=== PATIENT | male | born 1950 | race Caucasian/White ===

== ENCOUNTER 2017-04-21 01:24 | Inpatient (IN) | payer OTHER ==
--- NOTE | 2017-04-21 01:26 | PDOC ---
History of Present Illness - General History Source: Patient, Family Exam Limitations: No Limitations - History of Present Illness Initial Comments: 04/21/17 01:36 66 y/o M with a PMHx of HTN, HLD, kidney stones, diverticulitis presents to the ED with LLQ pain. Patient was seen at [facility] 2 days ago, and was told he has inflammation but not given medication. Patient states the pain is so severe he cannot sleep. He denies fever, chills. Denies nausea, vomiting, diarrhea. Denies chest pain, SOB. Patient speaks no Kyrgyz, daughter is at bedside translating for him. <Vandana Rhoades - Last Filed: 04/21/17 05:31> <Aniceto Salas - Last Filed: 04/21/17 05:35> - General Stated Complaint: ABD PAIN Past History <Vandana Rhoades - Last Filed: 04/21/17 05:31> - Past Medical History Anemia: No Asthma: No Cancer: No Cardiac Disorders: No CVA: No COPD: No CHF: No Dementia: No Diabetes: Yes GI Disorders: No Disorders: Yes (KIDNEY STONES) HTN: Yes Hypercholesterolemia: Yes Liver Disease: No Seizures: No Thyroid Disease: No - Surgical History Abdominal Surgery: Yes (umb.hernia) Appendectomy: No Cardiac Surgery: No Cholecystectomy: No Gastric Stapling: No Lung Surgery: No Neurologic Surgery: No Orthopedic Surgery: No - Suicide/Smoking/Psychosocial Hx Smoking Status: No Smoking History: Never smoked Have you smoked in the past 12 months: No Number of Cigarettes Smoked Daily: 0 Hx Alcohol Use: Yes (occasional) Drug/Substance Use Hx: No Substance Use Type: None Hx Substance Use Treatment: No <Aniceto Salas - Last Filed: 04/21/17 05:35> - Past Medical History Allergies/Adverse Reactions: Allergies Allergy/AdvReac Type Severity Reaction Status Date / Time No Known Allergies Allergy Verified 07/22/14 17:51 Home Medications: Ambulatory Orders Olmesartan Medoxomil [Benicar (Nf)] 40 mg PO DAILY 04/21/17 Review of Systems - Review of Systems Able to Perform ROS?: Yes Comments:: 04/21/17 01:36 GENERAL/CONSTITUTIONAL: No fever or chills. No weakness. HEAD, EYES, EARS, NOSE AND THROAT: No change in vision. No ear pain or discharge. No sore throat. CARDIOVASCULAR: No chest pain or shortness of breath. RESPIRATORY: No cough, wheezing, or hemoptysis. GASTROINTESTINAL: (+) LLQ pain. No nausea, vomiting, diarrhea or constipation. GENITOURINARY: No dysuria, frequency, or change in urination. MUSCULOSKELETAL: No joint or muscle swelling or pain. No neck or back pain. SKIN: No rash NEUROLOGIC: No headache, vertigo, loss of consciousness, or change in strength/ sensation. ENDOCRINE: No increased thirst. No abnormal weight change. HEMATOLOGIC/LYMPHATIC: No anemia, easy bleeding, or history of blood clots. ALLERGIC/IMMUNOLOGIC: No hives or skin allergy. <Vandana Rhoades - Last Filed: 04/21/17 05:31> *Physical Exam - Physical Exam Comments: 04/21/17 01:36 GENERAL: Awake, alert, and fully oriented, in no acute distress. Obese. HEAD: No signs of trauma EYES: PERRLA, EOMI, sclera anicteric, conjunctiva clear ENT: Auricles normal inspection, hearing grossly normal, nares patent, oropharynx clear without exudates. Moist mucosa NECK: Normal ROM, supple, no lymphadenopathy, JVD, or masses LUNGS: Breath sounds equal, clear to auscultation bilaterally. No wheezes, and no crackles HEART: Regular rate and rhythm, normal S1 and S2, no murmurs, rubs or gallops ABDOMEN: (+) LLQ tenderness. Soft, normoactive bowel sounds. No guarding, no rebound. No masses EXTREMITIES: Normal range of motion, no edema. No clubbing or cyanosis. No cords, erythema, or tenderness NEUROLOGICAL: Cranial nerves II through XII grossly intact. Normal speech, normal gait SKIN: Warm, Dry, normal turgor, no rashes or lesions noted. <Vandana Rhoades - Last Filed: 04/21/17 05:31> Heart Score/ECG Review #1 04/21/17 03:44 NSR with marked sinus arrythmia at 67 bpm. Possible left atrial enlargement. Right axis deviation. <Vandana Rhoades - Last Filed: 04/21/17 05:31> ED Treatment Course - LABORATORY CBC & Chemistry Diagram: 04/21/17 01:55 04/21/17 01:50 - RADIOLOGY Radiograph Interpretation: 04/21/17 05:31 CT Abdomen and Pelvis reported by Onel Trejo MD IMPRESSION: Diverticulitis <Vandana Rhoades - Last Filed: 04/21/17 05:31> - LABORATORY CBC & Chemistry Diagram: 04/21/17 01:55 04/21/17 01:50 <Aniceto Salas - Last Filed: 04/21/17 05:35> *DC/Admit/Observation/Transfer - Attestations Scribe Attestion: 04/21/17 01:36 Documentation prepared by Vandana Rhoades, acting as medical scheduler for Aniceto Salas DO. <Vandana Rhoades - Last Filed: 04/21/17 05:31> - Discharge Dispostion Admit: Yes - Attestations Physician Attestion: 04/21/17 01:26 I, Dr. Aniceto Salas, attest that this document has been prepared under my direction and personally reviewed by me in its entirety. I further attest, that it accurately reflects all work, treatment, procedures and medical decision -making performed by me. <Aniceto Salas - Last Filed: 04/21/17 05:35> Diagnosis at time of Disposition: Acute diverticulitis - Discharge Dispostion Condition at time of disposition: Improved
[2017-04-21] MEDS ORDERED: METRONIDAZOLE 500 MG PREMIXED 100 ML IVPB ONE ×2 (01:37→02:06)
[2017-04-21] MEDS ORDERED: ONDANSETRON 4 MG/2 ML VIAL IVPUSH ONE (01:37)
[2017-04-21] MEDS ORDERED: PIPERACIL/TAZOB 3.375 GM 3.375 GM/50 ML PREMIX IVPB ONE (01:37)
[2017-04-21] MEDS ORDERED: HYDROmorphone HCL CARPU-JECT 1 MG/1 ML DISP.SYRIN IVPUSH ONE (01:37)
[2017-04-21] MEDS ORDERED: SODIUM CHLORIDE 1,000 ML IV STA (01:37)
[2017-04-21 02:03] LABS: BASOPHIL 0.3 % (0-2.0); EOSINOPHIL 0.7 % (0-4.5); MCH 27.7 pg (25.7-33.7); MCHC 33.4 g/dl (32.0-35.9); MEAN CELL VOLUME 82.9 fl (80-96); PLATELET COUNT 219 K/MM3 (134-434); RDW 14.1 % (11.9-15.9); WHITE BLOOD COUNT 11.7 K/mm3 (4.0-10.0)
[2017-04-21] MEDS ORDERED: ONDANSETRON 4 MG/2 ML VIAL ONE (02:06)
[2017-04-21] MEDS ORDERED: HYDROmorphone HCL CARPU-JECT 1 MG/1 ML DISP.SYRIN ONE (02:06)
[2017-04-21 02:17] LABS: INR 1.23 (0.82-1.09); PROTHROMBIN TIME (PATIENT) 13.9 SEC (9.98-11.88)
[2017-04-21 02:30] LABS: ALBUMIN 3.6 g/dl (3.4-5.0); ANION GAP 9 (8-16); BILIRUBIN,TOTAL 0.5 mg/dL (0.2-1.0); CALCIUM 8.7 mg/dL (8.5-10.1); CO2 27 mmol/L (21-32); CREATININE 1.1 mg/dL (0.7-1.3); GLUCOSE,RANDOM 133 mg/dL (74-106); SGOT/AST 12 U/L (15-37); SGPT/ALT 20 U/L (12-78); TOT PROT 6.8 g/dl (6.4-8.2)
[2017-04-21 02:33] LABS: ALK PHOS 65 U/L (45-117); CPK 102 IU/L (39-308); TROPONIN I < 0.02 ng/ml (0.00-0.05)
[2017-04-21] MEDS ORDERED: PIPERACILLIN/TAZOB 3.375 GM 50 ML IVPB ONE (02:55)
[2017-04-21 06:21] LABS: C-REACTIVE PROTEIN 2.1 MG/DL (0.00-0.3)
[2017-04-21] MEDS ORDERED: ACETAMINOPHEN 325 MG TABLET (FP) PO PRN (07:26)
[2017-04-21] MEDS ORDERED: morphine CARPU-JECT 4 MG/1 ML DISP.SYRIN IVPUSH PRN (07:26)
[2017-04-21] MEDS ORDERED: ONDANSETRON 4 MG/2 ML VIAL IVPB PRN (07:26)
[2017-04-21] MEDS: DEXTROSE 5%-NORMAL SALINE 1,000 ML IV SCH ×2 (08:15→23:16)
--- NOTE | 2017-04-21 09:36 | EKG ---
Test Reason : Blood Pressure : / mmHG Vent. Rate : 067 BPM Atrial Rate : 067 BPM P-R Int : 196 ms QRS Dur : 100 ms QT Int : 368 ms P-R-T Axes : 066 115 058 degrees QTc Int : 388 ms POOR DATA QUALITY, INTERPRETATION MAY BE ADVERSELY AFFECTED SINUS RHYTHM WITH MARKED SINUS ARRHYTHMIA POSSIBLE LEFT ATRIAL ENLARGEMENT RIGHT AXIS DEVIATION ABNORMAL ECG WHEN COMPARED WITH ECG OF 22-JUL-2014 21:24, QRS AXIS SHIFTED RIGHT Confirmed by MINDA MCQUEEN, HARIKA ([id number]) on 04/21/2017 9:36:34 AM Referred By: Confirmed By:HARIKA PERLA MD
[2017-04-21] MEDS ORDERED: METRONIDAZOLE 500 MG PREMIXED 100 ML IVPB SCH (10:00)
[2017-04-21] MEDS ORDERED: LEVOFLOXACIN 500 MG IVPB 100 ML IVPB SCH (10:00)
--- NOTE | 2017-04-21 11:13 | HP ---
Admitting History and Physical - Primary Care Physician PCP: Isha Noel - Admission Chief Complaint: ABD PAIN History of Present Illness: 66 y/o M with a PMHx of HTN, HLD, kidney stones, diverticulitis presents to the ED with LLQ pain. Patient was seen at [facility] 2 days ago, and was told he has inflammation but not given medication. Patient states the pain is so severe he cannot sleep. He denies fever, chills. Denies nausea, vomiting, diarrhea. Denies chest pain, SOB. Patient speaks no Kittitian, daughter is at bedside translating for him. History Source: Patient - Smoking History Smoking history: Never smoked Have you smoked in the past 12 months: No Aproximately how many cigarettes per day: 0 - Alcohol/Substance Use Hx Alcohol Use: Yes (occasional) Home Medications - Allergies Allergies/Adverse Reactions: Allergies Allergy/AdvReac Type Severity Reaction Status Date / Time No Known Allergies Allergy Verified 07/22/14 17:51 - Home Medications Home Medications: Ambulatory Orders Olmesartan Medoxomil [Benicar (Nf)] 40 mg PO DAILY 04/21/17 Review of Systems - Review of Systems Constitutional: reports: Loss of Appetite Eyes: reports: No Symptoms HENT: reports: No Symptoms Neck: reports: No Symptoms Cardiovascular: reports: No Symptoms Respiratory: reports: No Symptoms Gastrointestinal: reports: Abdominal Pain, Indigestion Genitourinary: reports: No Symptoms Musculoskeletal: reports: No Symptoms Integumentary: reports: No Symptoms Neurological: reports: No Symptoms Endocrine: reports: No Symptoms Hematology/Lymphatic: reports: No Symptoms Psychiatric: reports: No Symptoms Physical Examination Vital Signs: Vital Signs Temperature 98.1 F 04/21/17 08:00 Pulse Rate 73 04/21/17 08:00 Respiratory Rate 18 04/21/17 08:00 Blood Pressure 104/65 04/21/17 08:00 O2 Sat by Pulse Oximetry (%) 99 04/21/17 06:12 Constitutional: Yes: Mild Distress Eyes: Yes: WNL HENT: Yes: WNL Neck: Yes: WNL Cardiovascular: Yes: WNL Respiratory: Yes: WNL Gastrointestinal: Yes: Tenderness, Rebound Musculoskeletal: Yes: WNL Extremities: Yes: WNL Edema: No Peripheral Pulses WNL: Yes Integumentary: Yes: WNL Wound/Incision: Yes: Clean/Dry Neurological: Yes: WNL ...Motor Strength: WNL Psychiatric: Yes: WNL Imaging - Results Cat Scan: Pending Problem List - Problems (1) Acute diverticulitis Code(s): K57.92 - DVTRCLI OF INTEST, PART UNSP, W/O PERF OR ABSCESS W/O BLEED (2) Abdominal pain Code(s): R10.9 - UNSPECIFIED ABDOMINAL PAIN Qualifiers: Abdominal location: generalized Qualified Code(s): R10.84 - Generalized abdominal pain; R10.84 - Generalized abdominal pain Assessment/Plan SURGERY AND GI EVAL MORPHINE FOR PAIN IV ABX NPO IVF ZOFRAN IV PPI IV
[2017-04-21] MEDS: PANTOPRAZOLE SODIUM 40 MG VIAL IVPUSH SCH (12:15)
[2017-04-21 12:35] VITALS: BMI 37.0
[2017-04-21] MEDS ORDERED: morphine CARPU-JECT 8 MG/1 ML DISP.SYRIN IVPUSH PRN ×2 (12:40)
--- NOTE | 2017-04-21 13:14 | CON.GI ---
Consult Consult Specialty:: GI Referred by:: Dr Noel Reason for Consultation:: Abdominal pain - History of Present Illness Chief Complaint: abdominal pain History of Present Illness: 66 y/o M with a PMHx of HTN, HLD, nephrolithiasis, diverticulitis presents to the ED with LLQ pain. He went to [place] 2 days ago and was treated and released with no meds. He states the pain has been escalating over the past few days and was severe on admission. CT done shows L sided diverticulitis and bilateral renal cysts. No fever, N/V. 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) - Alcohol/Substance Use Hx Alcohol Use: Yes (occasional) - Smoking History Smoking history: Never smoked Have you smoked in the past 12 months: No Aproximately how many cigarettes per day: 0 Home Medications - Allergies Allergies/Adverse Reactions: Allergies Allergy/AdvReac Type Severity Reaction Status Date / Time No Known Allergies Allergy Verified 07/22/14 17:51 - Home Medications Home Medications: Ambulatory Orders Olmesartan Medoxomil [Benicar (Nf)] 40 mg PO DAILY 04/21/17 Physical Exam-GI Vital Signs: Vital Signs Temperature 98.1 F 04/21/17 08:00 Pulse Rate 73 04/21/17 08:00 Respiratory Rate 18 04/21/17 08:00 Blood Pressure 104/65 04/21/17 08:00 O2 Sat by Pulse Oximetry (%) 95 04/21/17 09:00 Constitutional: Yes: Well Nourished, Obese HENT: Yes: Normocephalic Cardiovascular: Yes: Regular Rate and Rhythm Respiratory: Yes: CTA Bilaterally Gastrointestinal Inspection: Yes: WNL ...Auscultate: Yes: Normoactive Bowel Sounds ...Palpate: Yes: Soft, Tenderness (LLQ-moderate. He states better since pain meds were given.) Labs: INR, PTT INR 1.23 (0.82-1.09) H 04/21/17 01:55 Imaging - Results Cat Scan: Report Reviewed (Sigmoid diverticulitis and bilateral renal cysts. No abscess or free air.) Assessment/Plan Diverticulitis-uncomplicated. On levaquin and flagyl. If clinically improved, can start clear liquids tomorrow. Case d/w Dr Ellington who notes patient failed levaquin/flagyl in the past and did well with Zosyn. Need ID to evaluate. Continue levaquin and flagyl for now.
--- NOTE | 2017-04-21 14:18 | CONSULT ---
Consult Consult Specialty:: General Surgery Referred by:: Dr. Meredith Reason for Consultation:: diverticulitis - History of Present Illness Chief Complaint: LLQ pain History of Present Illness: 66yo obese M with HTN, HLD, DM2, GERD, h/o diverticulitis, began having LLQ pain about a week ago, and went to [facility], where he had imaging and was discharged without medication and told he was ok. His pain got very bad over last 3 days and he came to our ER. In ER, he was afebrile, had wbc 11.7, and CT showed diverticulitis without abscess or free air. He was admitted to medicine and started on antibiotics (Zosyn in ER, Levo/Flagyl on floor). He still had significant pain this morning, but it is starting to get a little better. In Jun 2014, he was here with a similar episode after failing Levo/Flagyl for 2-3 days as outpatient, received Zosyn and completed Augmentin at home with good response. He states he went to [place] about 4 months ago with LLQ pain and stayed there briefly as well. He denies N/V, F/C at home, but has had some constipation, for which he took milk of magnesia and had a soft BM yesterday morning, which was his last. - History Source History Provided By: Patient, Medical Record Limitations to Obtaining History: Language Barrier (Pakistani - interpretation facilitated by Holli Sanches RN at bedside) - Past Medical History Cardio/Vascular: Yes: HTN, Hyperlipdemia Pulmonary: No: Asthma Gastrointestinal: Yes: Diverticulitis, GERD Musculoskeletal: Yes: Chronic low back pain, Osteoarthritis (left knee) Endocrine: Yes: Diabetes Mellitus - Past Surgical History Past Surgical History: Yes: Arthrosocopy (left knee), Colonoscopy (x3-[address] 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 Home Medications - Allergies Allergies/Adverse Reactions: Allergies Allergy/AdvReac Type Severity Reaction Status Date / Time No Known Allergies Allergy Verified 07/22/14 17:51 - Home Medications Home Medications: Ambulatory Orders Olmesartan Medoxomil [Benicar (Nf)] 40 mg PO DAILY 04/21/17 Home Medications (free text): something for cholesterol, very small pill for diabetes, Nexium for stomach daily, ASA 81mg daily Family Disease History - Family Disease History Family History: Unable to Obtain Review of Systems - Review of Systems Constitutional: denies: Chills, Fever Eyes: reports: Other (wears glasses). denies: Blurred Vision HENT: reports: Throat Pain (just today). denies: Difficult Swallowing, Hearing Loss, Nasal Congestion Cardiovascular: denies: Chest Pain, Palpitations Respiratory: denies: Cough, SOB Gastrointestinal: reports: Abdominal Pain (with hpi), Constipation, Nausea ( from dilaudid earlier today), Vomiting (from dilaudid earlier today). denies: Diarrhea Genitourinary: denies: Burning, Dysuria Musculoskeletal: reports: Back Pain, Joint Pain (left knee) Integumentary: denies: Change in Color, Rash Neurological: denies: Dizziness, Headache Psychiatric: denies: Anxiety, Depression Physical Exam Vital Signs: Vital Signs Temperature 98.1 F 04/21/17 08:00 Pulse Rate 73 04/21/17 08:00 Respiratory Rate 18 04/21/17 08:00 Blood Pressure 104/65 04/21/17 08:00 O2 Sat by Pulse Oximetry (%) 95 04/21/17 09:00 Vital Signs Period Temp Pulse Resp BP Sys/George Pulse Ox Last 24 Hr 97.9 F-98.7 F 73-89 18-18 104-139/65-89 95-99 Constitutional: Yes: No Distress, Calm, Obese Eyes: Yes: Conjunctiva Clear, EOM Intact. No: Sclera Icterus HENT: Yes: Atraumatic, Normocephalic Neck: Yes: Supple, Trachea Midline Cardiovascular: Yes: Regular Rate and Rhythm. No: Murmur Respiratory: Yes: Regular, CTA Bilaterally Gastrointestinal: Yes: Soft, Abdomen, Obese, Hypoactive Bowel Sounds, Tenderness (LLQ without rebound or guarding), Other (well-healed curvilinear infraumbilical scar). No: Distention ...Rectal Exam: Yes: Deferred Renal/: No: CVA Tenderness - Left, CVA Tenderness - Right Musculoskeletal: Yes: Back Pain (chronic lower back). No: Joint Swelling Extremities: No: Cool, Cyanosis Edema: No Peripheral Pulses WNL: Yes Integumentary: No: Jaundice, Rash Neurological: Yes: Alert, Oriented Psychiatric: Yes: Alert, Oriented Labs: CBCD WBC 11.7 K/mm3 (4.0-10.0) H D 04/21/17 01:55 RBC 5.72 M/mm3 (4.00-5.60) H D 04/21/17 01:55 Hgb 15.8 GM/dL (11.7-16.9) D 04/21/17 01:55 Hct 47.4 % (35.4-49) D 04/21/17 01:55 MCV 82.9 fl (80-96) 04/21/17 01:55 MCHC 33.4 g/dl (32.0-35.9) 04/21/17 01:55 RDW 14.1 % (11.9-15.9) 04/21/17 01:55 Plt Count 219 K/MM3 (134-434) 04/21/17 01:55 MPV 8.0 fl (7.5-11.1) 04/21/17 01:55 CMP Sodium 139 mmol/L (136-145) 04/21/17 01:50 Potassium 4.0 mmol/L (3.5-5.1) 04/21/17 01:50 Chloride 103 mmol/L (98-107) 04/21/17 01:50 Carbon Dioxide 27 mmol/L (21-32) 04/21/17 01:50 Anion Gap 9 (8-16) 04/21/17 01:50 BUN 14 mg/dL (7-18) D 04/21/17 01:50 Creatinine 1.1 mg/dL (0.7-1.3) 04/21/17 01:50 Creat Clearance w eGFR > 60 (>60) 04/21/17 01:50 Calcium 8.7 mg/dL (8.5-10.1) 04/21/17 01:50 Total Bilirubin 0.5 mg/dL (0.2-1.0) 04/21/17 01:50 AST 12 U/L (15-37) L D 04/21/17 01:50 ALT 20 U/L (12-78) 04/21/17 01:50 Alkaline Phosphatase 65 U/L (45-117) 04/21/17 01:50 Total Protein 6.8 g/dl (6.4-8.2) 04/21/17 01:50 Albumin 3.6 g/dl (3.4-5.0) 04/21/17 01:50 Imaging - Results Chest X-ray: Report Reviewed Cat Scan: Report Reviewed (diverticulitis without abscess or extraluminal air), Image Reviewed EKG: Report Reviewed Problem List - Problems (1) Diverticulitis large intestine w/o perforation or abscess w/o bleeding Assessment/Plan: uncomplicated recurrent diverticulitis admitted to medicine starting to feel a little better with antibiotics and morphine agree with NPO/IVF until pain/tenderness resolves IV antibiotics - given previous failure of levo/flagyl, change to Unaysn, plan to complete course with po Augmentin (spoke with Dr. Meredith) GI/DVT prophylaxis GI consult noted, spoke with Dr. Martinez no current surgical indications will follow Code(s): K57.32 - DVTRCLI OF LG INT W/O PERFORATION OR ABSCESS W/O BLEEDING (2) Obesity (BMI 35.0-39.9 without comorbidity) Code(s): E66.9 - OBESITY, UNSPECIFIED (3) HTN (hypertension) Assessment/Plan: ok for home meds with sips Code(s): I10 - ESSENTIAL (PRIMARY) HYPERTENSION Qualifiers: Hypertension type: essential hypertension Qualified Code(s): I10 - Essential (primary) hypertension; I10 - Essential (primary) hypertension; I10 - Essential (primary) hypertension (4) Diabetes mellitus type 2 in obese Assessment/Plan: FS with SSI while NPO check pharmacy for meds? (pt does not know name) HbA1C pending Code(s): E11.69 - TYPE 2 DIABETES MELLITUS WITH OTHER SPECIFIED COMPLICATION E66.9 - OBESITY, UNSPECIFIED (5) GERD (gastroesophageal reflux disease) Assessment/Plan: continue PPI in hospital Code(s): K21.9 - GASTRO-ESOPHAGEAL REFLUX DISEASE WITHOUT ESOPHAGITIS Qualifiers: Esophagitis presence: without esophagitis Qualified Code(s): K21.9 - Gastro-esophageal reflux disease without esophagitis; K21.9 - Gastro- esophageal reflux disease without esophagitis; K21.9 - Gastro-esophageal reflux disease without esophagitis (6) Hyperlipidemia Code(s): E78.5 - HYPERLIPIDEMIA, UNSPECIFIED Qualifiers: Hyperlipidemia type: unspecified Qualified Code(s): E78.5 - Hyperlipidemia, unspecified; E78.5 - Hyperlipidemia, unspecified; E78.5 - Hyperlipidemia, unspecified
[2017-04-21] MEDS ORDERED: PT OWN MED DRAWER 7, Y5N ONE ×2 (16:35→23:09)
[2017-04-21] MEDS: AMPICILLIN NA/SULBACTAM NA 3 GM in SODIUM CHLORIDE 100 ML IVPB SCH ×2 (16:38→23:11)
[2017-04-21 18:49] LABS: URINE APPEARANCE CLEAR; URINE BILIRUBIN NEGATIVE (NEGATIVE); URINE BLOOD NEGATIVE (NEGATIVE); URINE COLOR YELLOW; URINE GLUCOSE (UA) NEGATIVE (NEGATIVE); URINE KETONE NEGATIVE (NEGATIVE); URINE NITRITE NEGATIVE (NEGATIVE); URINE PROTEIN NEGATIVE (NEGATIVE); URINE UROBILINOGEN NEGATIVE mg/dL (0.2-1.0)
[2017-04-21 22:18] LABS: URINE LEUK ESTERASE Negative (NEGATIVE)
[2017-04-22] MEDS ORDERED: PT OWN MED DRAWER 7, Y5N ONE ×4 (03:33→20:13)
[2017-04-22] MEDS: AMPICILLIN NA/SULBACTAM NA 3 GM in SODIUM CHLORIDE 100 ML IVPB SCH ×4 (03:37→21:07)
[2017-04-22 08:45] LABS: MCH 28.2 pg (25.7-33.7); MEAN CELL VOLUME 82.9 fl (80-96); MEAN PLT VOLUME 8.1 fl (7.5-11.1); PLATELET COUNT 210 K/MM3 (134-434); RDW 14.3 % (11.9-15.9); WHITE BLOOD COUNT 5.6 K/mm3 (4.0-10.0)
[2017-04-22 09:14] LABS: ALBUMIN 3.1 g/dl (3.4-5.0); ANION GAP 5 (8-16); BILIRUBIN,TOTAL 0.6 mg/dL (0.2-1.0); CALCIUM 8.2 mg/dL (8.5-10.1); CHOLESTEROL 135 mg/dL (50-200); CO2 29 mmol/L (21-32); CREATININE 1.2 mg/dL (0.7-1.3); GLUCOSE,RANDOM 105 mg/dL (74-106); SGOT/AST 9 U/L (15-37); SGPT/ALT 16 U/L (12-78); TOT PROT 6.1 g/dl (6.4-8.2)
[2017-04-22 09:15] LABS: ALK PHOS 59 U/L (45-117)
[2017-04-22] MEDS: PANTOPRAZOLE SODIUM 40 MG VIAL IVPUSH SCH (09:37)
--- NOTE | 2017-04-22 10:47 | PN ---
Progress Note, Physician Chief Complaint: LLQ pain History of Present Illness: Pt seen and examined in bed. Feeling better, pain is less. Has not used pain medication since yesterday. No BM yet. No overnight events. - Current Medication List Current Medications: Active Medications Acetaminophen (Tylenol -) 650 mg PO Q6H PRN PRN Reason: FEVER OR PAIN Dextrose/Sodium Chloride (D5-Ns -) 1,000 mls @ 83 mls/hr IV ASDIR NIA Last Admin: 04/21/17 23:16 Dose: 83 mls/hr Ampicillin Sodium/Sulbactam (Sodium 3 gm/ Sodium Chloride) 100 mls @ 200 mls/ hr IVPB Q6H-IV NIA Last Admin: 04/22/17 09:37 Dose: 200 mls/hr Morphine Sulfate (Morphine Sulfate) 4 mg IVPUSH Q6H PRN PRN Reason: PAIN Last Admin: 04/21/17 12:49 Dose: 4 mg Ondansetron HCl (Zofran Injection) 8 mg IVPB Q6H PRN PRN Reason: NAUSEA Pantoprazole Sodium (Protonix Iv) 40 mg IVPUSH DAILY [facility] Last Admin: 04/22/17 09:37 Dose: 40 mg - Objective Vital Signs: Vital Signs Temperature 98.1 F 04/22/17 08:00 Pulse Rate 67 04/22/17 08:00 Respiratory Rate 18 04/22/17 08:00 Blood Pressure 134/74 04/22/17 08:00 O2 Sat by Pulse Oximetry (%) 97 04/22/17 08:29 Constitutional: Yes: No Distress, Calm, Obese Eyes: Yes: Conjunctiva Clear, EOM Intact Gastrointestinal: Yes: Soft, Abdomen, Obese, Distention (minimal), Tenderness ( LLQ without R/G, not elsewhere, less than yesterday) Genitourinary: No: CVA Tenderness - Left, CVA Tenderness - Right Extremities: No: Cool, Cyanosis Integumentary: No: Jaundice, Rash Neurological: Yes: Alert, Oriented Labs: CBC, BMP 04/22/17 07:34 04/22/17 07:34 wbc down to normal Problem List - Problems (1) Diverticulitis large intestine w/o perforation or abscess w/o bleeding Assessment/Plan: uncomplicated recurrent diverticulitis feeling better, pain and tenderness decreasing on Unasyn agree with NPO/IVF until pain/tenderness resolve, maybe clears tomorrow GI/DVT prophylaxis GI on board no current surgical indications will follow Code(s): K57.32 - DVTRCLI OF LG INT W/O PERFORATION OR ABSCESS W/O BLEEDING (2) Obesity (BMI 35.0-39.9 without comorbidity) Code(s): E66.9 - OBESITY, UNSPECIFIED (3) HTN (hypertension) Assessment/Plan: ok for home meds with sips Code(s): I10 - ESSENTIAL (PRIMARY) HYPERTENSION Qualifiers: Hypertension type: essential hypertension Qualified Code(s): I10 - Essential (primary) hypertension; I10 - Essential (primary) hypertension; I10 - Essential (primary) hypertension (4) Diabetes mellitus type 2 in obese Assessment/Plan: FS with SSI while NPO check pharmacy for meds? (pt does not know name) HbA1C pending Code(s): E11.69 - TYPE 2 DIABETES MELLITUS WITH OTHER SPECIFIED COMPLICATION E66.9 - OBESITY, UNSPECIFIED (5) GERD (gastroesophageal reflux disease) Assessment/Plan: continue PPI in hospital Code(s): K21.9 - GASTRO-ESOPHAGEAL REFLUX DISEASE WITHOUT ESOPHAGITIS Qualifiers: Esophagitis presence: without esophagitis Qualified Code(s): K21.9 - Gastro-esophageal reflux disease without esophagitis; K21.9 - Gastro- esophageal reflux disease without esophagitis; K21.9 - Gastro-esophageal reflux disease without esophagitis (6) Hyperlipidemia Code(s): E78.5 - HYPERLIPIDEMIA, UNSPECIFIED Qualifiers: Hyperlipidemia type: unspecified Qualified Code(s): E78.5 - Hyperlipidemia, unspecified; E78.5 - Hyperlipidemia, unspecified; E78.5 - Hyperlipidemia, unspecified
--- NOTE | 2017-04-22 11:05 | PN ---
Progress Note, Physician Chief Complaint: PATIENT SEEN, PAIN IMPROVED - Current Medication List Current Medications: Active Medications Acetaminophen (Tylenol -) 650 mg PO Q6H PRN PRN Reason: FEVER OR PAIN Dextrose/Sodium Chloride (D5-Ns -) 1,000 mls @ 83 mls/hr IV ASDIR NIA Last Admin: 04/21/17 23:16 Dose: 83 mls/hr Ampicillin Sodium/Sulbactam (Sodium 3 gm/ Sodium Chloride) 100 mls @ 200 mls/ hr IVPB Q6H-IV NIA Last Admin: 04/22/17 09:37 Dose: 200 mls/hr Morphine Sulfate (Morphine Sulfate) 4 mg IVPUSH Q6H PRN PRN Reason: PAIN Last Admin: 04/21/17 12:49 Dose: 4 mg Ondansetron HCl (Zofran Injection) 8 mg IVPB Q6H PRN PRN Reason: NAUSEA Pantoprazole Sodium (Protonix Iv) 40 mg IVPUSH DAILY [facility] Last Admin: 04/22/17 09:37 Dose: 40 mg - Objective Vital Signs: Vital Signs Temperature 98.1 F 04/22/17 08:00 Pulse Rate 67 04/22/17 08:00 Respiratory Rate 18 04/22/17 08:00 Blood Pressure 134/74 04/22/17 08:00 O2 Sat by Pulse Oximetry (%) 97 04/22/17 08:29 Constitutional: Yes: Mild Distress Eyes: Yes: WNL HENT: Yes: WNL Neck: Yes: WNL Cardiovascular: Yes: WNL Respiratory: Yes: WNL Gastrointestinal: Yes: Tenderness Genitourinary: Yes: WNL Musculoskeletal: Yes: WNL Extremities: Yes: WNL Edema: No Peripheral Pulses WNL: Yes Integumentary: Yes: WNL Wound/Incision: Yes: Clean/Dry Neurological: Yes: WNL ...Motor Strength: WNL Psychiatric: Yes: WNL Labs: CBC, BMP 04/22/17 07:34 04/22/17 07:34 INR, PTT INR 1.23 (0.82-1.09) H 04/21/17 01:55 Problem List - Problems (1) Acute diverticulitis Code(s): K57.92 - DVTRCLI OF INTEST, PART UNSP, W/O PERF OR ABSCESS W/O BLEED (2) Abdominal pain Code(s): R10.9 - UNSPECIFIED ABDOMINAL PAIN Qualifiers: Abdominal location: generalized Qualified Code(s): R10.84 - Generalized abdominal pain; R10.84 - Generalized abdominal pain Assessment/Plan OOB TO CHAIR D/W NURSE ES/CRP TOMORROW FOLLOW LEVELS START LIQUIDS TOMORROW
[2017-04-22] MEDS: DEXTROSE 5%-NORMAL SALINE 1,000 ML IV SCH (12:35)
--- NOTE | 2017-04-22 13:33 | PN ---
GI Progress Note Subjective: Patient resting comfortably States pain is much better-still with discomfort - Objective Vital Signs: Vital Signs Temperature 98.1 F 04/22/17 08:00 Pulse Rate 67 04/22/17 08:00 Respiratory Rate 18 04/22/17 08:00 Blood Pressure 134/74 04/22/17 08:00 O2 Sat by Pulse Oximetry (%) 97 04/22/17 08:29 Constitutional: Obese HENT: Yes: Normocephalic Cardiovascular: Yes: Regular Rate and Rhythm Respiratory: Yes: CTA Bilaterally Gastrointestinal Inspection: Yes: WNL ...Auscultate: Yes: Normoactive Bowel Sounds ...Palpate: Yes: Soft, Tenderness (fLLQ -mild) Labs: CBC, BMP 04/22/17 07:34 04/22/17 07:34 INR, PTT INR 1.23 (0.82-1.09) H 04/21/17 01:55 Hepatic Panel Total Bilirubin 0.6 mg/dL (0.2-1.0) 04/22/17 07:34 AST 9 U/L (15-37) L D 04/22/17 07:34 ALT 16 U/L (12-78) 04/22/17 07:34 Alkaline Phosphatase 59 U/L (45-117) 04/22/17 07:34 Albumin 3.1 g/dl (3.4-5.0) L 04/22/17 07:34 Assessment/Plan Uncomplicated diverticulitis Doing well on Unasyn Continue AbRx Start clears
[2017-04-23] MEDS: AMPICILLIN NA/SULBACTAM NA 3 GM in SODIUM CHLORIDE 100 ML IVPB SCH ×2 (02:37→09:11)
[2017-04-23] MEDS: DEXTROSE 5%-NORMAL SALINE 1,000 ML IV SCH ×2 (02:41→13:33)
[2017-04-23 07:08] LABS: MCH 28.1 pg (25.7-33.7); MCHC 34.2 g/dl (32.0-35.9); MEAN CELL VOLUME 82.3 fl (80-96); PLATELET COUNT 211 K/MM3 (134-434); WHITE BLOOD COUNT 5.7 K/mm3 (4.0-10.0)
[2017-04-23 07:14] LABS: ALBUMIN 3.1 g/dl (3.4-5.0); ALK PHOS 53 U/L (45-117); ANION GAP 6 (8-16); BILIRUBIN,TOTAL 0.7 mg/dL (0.2-1.0); C-REACTIVE PROTEIN 1.9 MG/DL (0.00-0.3); CO2 27 mmol/L (21-32); CREATININE 1.1 mg/dL (0.7-1.3); GLUCOSE,RANDOM 109 mg/dL (74-106); SGOT/AST 8 U/L (15-37); SGPT/ALT 14 U/L (12-78); TOT PROT 5.9 g/dl (6.4-8.2)
[2017-04-23 09:35] LABS: ERYTHROCYTE SEDIMENTATION RATE 7 mm/hr (0-20)
--- NOTE | 2017-04-23 09:51 | PN ---
Progress Note, Physician History of Present Illness: still with LLq pain less than yesterday - Current Medication List Current Medications: Active Medications Acetaminophen (Tylenol -) 650 mg PO Q6H PRN PRN Reason: FEVER OR PAIN Dextrose/Sodium Chloride (D5-Ns -) 1,000 mls @ 83 mls/hr IV ASDIR NIA Last Admin: 04/23/17 02:41 Dose: 83 mls/hr Ampicillin Sodium/Sulbactam (Sodium 3 gm/ Sodium Chloride) 100 mls @ 200 mls/ hr IVPB Q6H-IV NIA Last Admin: 04/23/17 09:11 Dose: 200 mls/hr Morphine Sulfate (Morphine Sulfate) 4 mg IVPUSH Q6H PRN PRN Reason: PAIN Last Admin: 04/21/17 12:49 Dose: 4 mg Ondansetron HCl (Zofran Injection) 8 mg IVPB Q6H PRN PRN Reason: NAUSEA Pantoprazole Sodium (Protonix Iv) 40 mg IVPUSH DAILY [facility] Last Admin: 04/22/17 09:37 Dose: 40 mg - Objective Vital Signs: Vital Signs Temperature 99.2 F 04/23/17 09:12 Pulse Rate 58 L 04/23/17 09:12 Respiratory Rate 20 04/23/17 09:12 Blood Pressure 156/97 04/23/17 09:12 O2 Sat by Pulse Oximetry (%) 97 04/22/17 20:45 Cardiovascular: Yes: Regular Rate and Rhythm Respiratory: Yes: Regular, CTA Bilaterally Gastrointestinal: Yes: Normal Bowel Sounds, Soft, Tenderness (LLQ). No: Tenderness, Rebound Labs: CBC, BMP 04/23/17 06:10 04/23/17 06:10 INR, PTT INR 1.23 (0.82-1.09) H 04/21/17 01:55 Problem List - Problems (1) Acute diverticulitis Assessment/Plan: IV ABX GI AND SURGERY ON BOARD ID CONSULT SURGERY DUSCUSSED WITH PT--HE UNDERSTANDS THIS WILL BE EXPLORED OUTPATIENT Code(s): K57.92 - DVTRCLI OF INTEST, PART UNSP, W/O PERF OR ABSCESS W/O BLEED (2) Diabetes mellitus type 2 in obese Assessment/Plan: [facility] A1C Code(s): E11.69 - TYPE 2 DIABETES MELLITUS WITH OTHER SPECIFIED COMPLICATION E66.9 - OBESITY, UNSPECIFIED (3) HTN (hypertension) Assessment/Plan: Vital Signs Period Temp Pulse Resp BP Sys/George Pulse Ox Last 24 Hr 97.3 F-99.2 F 55-62 18-20 117-156/64-97 97 Code(s): I10 - ESSENTIAL (PRIMARY) HYPERTENSION Qualifiers: Hypertension type: essential hypertension Qualified Code(s): I10 - Essential (primary) hypertension; I10 - Essential (primary) hypertension; I10 - Essential (primary) hypertension
--- NOTE | 2017-04-23 10:56 | PN ---
Progress Note, Physician Chief Complaint: ID Full noted dictated Appears comfortable - Current Medication List Current Medications: Active Medications Acetaminophen (Tylenol -) 650 mg PO Q6H PRN PRN Reason: FEVER OR PAIN Amlodipine Besylate (Norvasc -) 5 mg PO DAILY [facility] Dextrose/Sodium Chloride (D5-Ns -) 1,000 mls @ 83 mls/hr IV ASDIR [facility] Last Admin: 04/23/17 02:41 Dose: 83 mls/hr Ampicillin Sodium/Sulbactam (Sodium 3 gm/ Sodium Chloride) 100 mls @ 200 mls/ hr IVPB Q6H-IV NIA Last Admin: 04/23/17 09:11 Dose: 200 mls/hr Insulin Aspart (Novolog Vial) 0 units SQ ACHS NIA PRN Reason: Protocol Morphine Sulfate (Morphine Sulfate) 4 mg IVPUSH Q6H PRN PRN Reason: PAIN Last Admin: 04/21/17 12:49 Dose: 4 mg Ondansetron HCl (Zofran Injection) 8 mg IVPB Q6H PRN PRN Reason: NAUSEA Pantoprazole Sodium (Protonix Iv) 40 mg IVPUSH DAILY [facility] Last Admin: 04/22/17 09:37 Dose: 40 mg - Objective Vital Signs: Vital Signs Temperature 99.2 F 04/23/17 09:12 Pulse Rate 58 L 04/23/17 09:12 Respiratory Rate 20 04/23/17 09:12 Blood Pressure 156/97 04/23/17 09:12 O2 Sat by Pulse Oximetry (%) 97 04/22/17 20:45 Constitutional: Yes: Well Nourished, No Distress Neck: Yes: WNL, Supple Cardiovascular: Yes: S1, S2 Respiratory: Yes: WNL, Regular, CTA Bilaterally Gastrointestinal: Yes: Soft, Tenderness, Other (LLQ tender no guarding) Labs: CBC, BMP 04/23/17 06:10 04/23/17 06:10 INR, PTT INR 1.23 (0.82-1.09) H 04/21/17 01:55 Assessment/Plan Laboratory Tests 04/21/17 04/21/17 04/23/17 01:50 01:55 06:10 WBC 11.7 H D Hgb 15.8 D Plt Count 219 ESR 7 C-Reactive Protein 2.1 H Assessment Recurrent diverticulitis less likely failure of antibiotics 5 months ago Plan Ceftriaxone and metronidazole given shortage of IV bags Dusty MCQUEEN
[2017-04-23] MEDS: PANTOPRAZOLE SODIUM 40 MG VIAL IVPUSH SCH (11:10)
[2017-04-23] MEDS ORDERED: CEFTRIAXONE 50 ML IVPB SCH (11:15)
[2017-04-23] MEDS ORDERED: CEFTRIAXONE 1 G/50 ML PREMIX 50 ML IVPB SCH (11:18)
[2017-04-23] MEDS: amLODIPine BESYLATE 5 MG TABLET (FP) PO SCH (11:20)
[2017-04-23] MEDS: INSULIN SLIDING SCALE (NOVOLOG) 1 VIAL SQ SCH ×3 (11:25→21:07)
--- NOTE | 2017-04-23 11:48 | CONS ---
DATE OF CONSULTATION: HISTORY: This is a 66-year-old [place] man with a history of hypertension, diabetes, and diverticulitis who I am asked to see for evaluation of recurrent left lower quadrant pain over a week ago. He has a history of have been hospitalized for diverticulitis at [facility] perhaps 5 months ago. Two weeks ago he notes going to [place] with recurrent abdominal pain and states he had an imaging study, which looked fine and was discharged without any medications. Over the last 3 days, his left lower quadrant pain became more severe and was associated with chills, though he had no fever documented here. His white count was 11.7, and his CRP was mildly elevated. A CT scan showed diverticulitis without free air or abscess. He was empirically treated with levofloxacin and metronidazole on admission, and I am asked to see him for further evaluation. Currently, he is on Unasyn. PAST MEDICAL HISTORY: As noted above. MEDICATIONS: At home, Benicar. ALLERGIES: None known. SOCIAL HISTORY: Lives with his . No recent travel. Nonsmoker. No history of alcohol or other substance abuse. No unusual hobbies, pets, exposure to known illness. FAMILY HISTORY: Reviewed and noncontributory. REVIEW OF SYSTEMS: Respiratory: No cough, shortness of breath. Cardiac: No chest pain, palpitations, syncope, murmur. Gastrointestinal: Left lower quadrant pain. Associated nausea. Episode of vomiting. No diarrhea, blood per rectum. Genitourinary: No dysuria, hematuria, frequency. PHYSICAL EXAMINATION: Vital Signs: Temperature 98.1, pulse 73, respirations 18, blood pressure 104/65. Neck: Supple. Lungs: Clear to P and A. Heart: S1, S2. Regular rhythm. No audible murmur. Abdomen: Positive bowel sounds. Not distended. Soft. Tenderness noted on direct palpation in the left lower quadrant without guarding or rebound. Extremities: Without edema. LABORATORY DATA: White count 5.7 current, hemoglobin 15.1. Chemistry profile within normal limits. CRP 1.9. Urinalysis screen: Negative leukocyte esterase. CT scan as previously noted. ASSESSMENT: Recurrent diverticulitis. PLAN: As discussed with Dr. Noel and Dr. Martinez. Would empirically treat with a combination of ceftriaxone and metronidazole. The patient has been seen by Surgery. Will likely need a GI workup including colonoscopy if not previously done. Further recommendations regarding need for surgery pending. Can probably be switched to oral antibiotics, perhaps Augmentin in the days to come. BRADFORD ZARAGOZA M.D. [place]INA/[id number]
--- NOTE | 2017-04-23 13:33 | PN ---
Progress Note, Physician Chief Complaint: LLQ pain History of Present Illness: Pt seen and examined in bed. Feeling better, pain is even less. Not using pain medication since yesterday. No BM yet, feels constipated, wants Miralax. No overnight events. Tolerating clears for dinner and so far today, but not taking much of them - "I don't like them." Pt is hungry. Pharmacy contacted for patient's home med list. Entered into system. Pt states he does not take all his medications, just ASA, olmesartan/HCTZ, glipizide, nexium, miralax, ?vascepa. He used to take Vit D on Saturdays but is not anymore. He is NOT using albuterol inhaler, claritin, lotrisone cream. Per pharmacist, he told them he was not taking Aricept 5mg daily anymore, and it was last filled 01/22/17. They also show a meclizine Rx 12.5mg bid x 10d filled in February. - Current Medication List Current Medications: Active Medications Acetaminophen (Tylenol -) 650 mg PO Q6H PRN PRN Reason: FEVER OR PAIN Amlodipine Besylate (Norvasc -) 5 mg PO DAILY [facility] Last Admin: 04/23/17 11:20 Dose: 5 mg Dextrose/Sodium Chloride (D5-Ns -) 1,000 mls @ 83 mls/hr IV ASDIR [facility] Last Admin: 04/23/17 02:41 Dose: 83 mls/hr CEFTRIAXONE 1 G/50 ML PREMIX (Ceftriaxone 1 Gm-D5w Bag) 50 mls @ 100 mls/hr IVPB DAILY [facility] Insulin Aspart (Novolog Vial Sliding Scale -) 1 vial SQ ACHS NIA PRN Reason: Protocol Last Admin: 04/23/17 11:25 Dose: Not Given Metronidazole (Flagyl -) 500 mg PO TID [facility] Morphine Sulfate (Morphine Sulfate) 4 mg IVPUSH Q6H PRN PRN Reason: PAIN Last Admin: 04/21/17 12:49 Dose: 4 mg Ondansetron HCl (Zofran Injection) 8 mg IVPB Q6H PRN PRN Reason: NAUSEA Pantoprazole Sodium (Protonix Iv) 40 mg IVPUSH DAILY [facility] Last Admin: 04/23/17 11:10 Dose: 40 mg - Objective Vital Signs: Vital Signs Temperature 99.2 F 04/23/17 09:12 Pulse Rate 58 L 04/23/17 09:12 Respiratory Rate 20 04/23/17 09:12 Blood Pressure 156/97 04/23/17 09:12 O2 Sat by Pulse Oximetry (%) 97 04/22/17 20:45 Vital Signs Period Temp Pulse Resp BP Sys/George Pulse Ox Last 24 Hr 97.3 F-99.2 F 55-62 18-20 117-156/62-97 97 Constitutional: Yes: No Distress, Calm, Obese Eyes: Yes: Conjunctiva Clear, EOM Intact Gastrointestinal: Yes: Soft, Abdomen, Obese, Distention (minimal), Tenderness ( mild LLQ to deep palpation only - much improved, less than yesterday) Extremities: No: Cool, Cyanosis Integumentary: No: Jaundice, Rash Neurological: Yes: Alert, Oriented Labs: CBC, BMP 04/23/17 06:10 04/23/17 06:10 Problem List - Problems (1) Diverticulitis large intestine w/o perforation or abscess w/o bleeding Assessment/Plan: uncomplicated recurrent diverticulitis feeling better, pain and tenderness decreased and nearly resolved tolerating clears - will advance diet for dinner ID changed antibiotics - flagyl and ceftriaxone anticipate change to augmentin when tolerating po diet GI/DVT prophylaxis GI on board Code(s): K57.32 - DVTRCLI OF LG INT W/O PERFORATION OR ABSCESS W/O BLEEDING (2) Obesity (BMI 35.0-39.9 without comorbidity) Code(s): E66.9 - OBESITY, UNSPECIFIED (3) HTN (hypertension) Code(s): I10 - ESSENTIAL (PRIMARY) HYPERTENSION Qualifiers: Hypertension type: essential hypertension Qualified Code(s): I10 - Essential (primary) hypertension; I10 - Essential (primary) hypertension; I10 - Essential (primary) hypertension (4) Diabetes mellitus type 2 in obese Code(s): E11.69 - TYPE 2 DIABETES MELLITUS WITH OTHER SPECIFIED COMPLICATION E66.9 - OBESITY, UNSPECIFIED (5) GERD (gastroesophageal reflux disease) Code(s): K21.9 - GASTRO-ESOPHAGEAL REFLUX DISEASE WITHOUT ESOPHAGITIS Qualifiers: Esophagitis presence: without esophagitis Qualified Code(s): K21.9 - Gastro-esophageal reflux disease without esophagitis; K21.9 - Gastro- esophageal reflux disease without esophagitis; K21.9 - Gastro-esophageal reflux disease without esophagitis (6) Hyperlipidemia Code(s): E78.5 - HYPERLIPIDEMIA, UNSPECIFIED Qualifiers: Hyperlipidemia type: unspecified Qualified Code(s): E78.5 - Hyperlipidemia, unspecified; E78.5 - Hyperlipidemia, unspecified; E78.5 - Hyperlipidemia, unspecified
[2017-04-23] MEDS: metroNIDAZOLE 250 MG TABLET PO SCH ×2 (13:34→21:07)
[2017-04-23] MEDS: CEFTRIAXONE 1 G/50 ML PREMIX 50 ML IVPB SCH (14:42)
--- NOTE | 2017-04-23 20:44 | PN ---
Progress Note (short form) - Note Progress Note: Patient appears comfortable. Minimal pain Afeb Abdomen less tender No leukocytosis A/P Uncomplicated diverticulitis-resolving Agree with advancing diet Will arrange for outpatient colon in 8 weeks
[2017-04-23] MEDS ORDERED: INSULIN (NOVOLOG) ASPART 100 UNITS/ML 10ML VIAL ONE (21:03)
[2017-04-24] MEDS: metroNIDAZOLE 250 MG TABLET PO SCH ×2 (06:10→14:57)
[2017-04-24] MEDS: INSULIN SLIDING SCALE (NOVOLOG) 1 VIAL SQ SCH ×2 (06:10→11:43)
--- NOTE | 2017-04-24 09:12 | DS ---
Physical Examination Vital Signs: Vital Signs Temperature 98.1 F 04/24/17 05:59 Pulse Rate 59 L 04/24/17 05:59 Respiratory Rate 18 04/24/17 05:59 Blood Pressure 118/50 04/24/17 05:59 O2 Sat by Pulse Oximetry (%) 97 04/22/17 20:45 Labs: CBC, BMP 04/23/17 06:10 04/23/17 06:10 Discharge Summary Reason For Visit: ACUTE DIVERTICULITIS Current Active Problems Acute diverticulitis (Acute) Diabetes mellitus type 2 in obese (Acute) Diverticulitis large intestine w/o perforation or abscess w/o bleeding (Acute) GERD (gastroesophageal reflux disease) (Acute) HTN (hypertension) (Acute) Hyperlipidemia (Acute) Obesity (BMI 35.0-39.9 without comorbidity) (Acute) Condition: Improved - Instructions Referrals: Viet Slaughter MD [Staff Physician] - Torsten Ellington MD [Staff Physician] - Kehinde Gallardo MD [Staff Physician] - 1 Week - Home Medications Comprehensive Discharge Medication List: Ambulatory Orders Aspirin [Aspirin EC] 81 mg PO DAILY 04/23/17 Esomeprazole Magnesium 1 cap PO DAILY 04/23/17 Acetaminophen [Tylenol .Regular Strength -] 650 mg PO Q6H PRN #0 tablet Amlodipine Besylate [Norvasc -] 5 mg PO DAILY #30 tablet 04/24/17 Amox-Tr/K Cl [Augmentin - 875Mg Tablet] 1 tab PO BID #14 tablet 04/24/17 Metronidazole [Flagyl -] 500 mg PO TID #21 tablet 04/24/17
--- NOTE | 2017-04-24 09:20 | PN ---
Progress Note, Physician Chief Complaint: LLQ pain History of Present Illness: Pt seen ambulating in hallway and examined in bed. Feeling better, pain is "a little bit," but even less. Not using pain medication. No overnight events. Tolerating diet without increase in pain. - Current Medication List Current Medications: Active Medications Acetaminophen (Tylenol -) 650 mg PO Q6H PRN PRN Reason: FEVER OR PAIN Amlodipine Besylate (Norvasc -) 5 mg PO DAILY [facility] Last Admin: 04/23/17 11:20 Dose: 5 mg Aspirin (Ecotrin -) 81 mg PO DAILY [facility] CEFTRIAXONE 1 G/50 ML PREMIX (Ceftriaxone 1 Gm-D5w Bag) 50 mls @ 100 mls/hr IVPB DAILY [facility] Last Admin: 04/23/17 14:42 Dose: 100 mls/hr Insulin Aspart (Novolog Vial Sliding Scale -) 1 vial SQ ACHS NIA PRN Reason: Protocol Last Admin: 04/24/17 06:10 Dose: Not Given Metronidazole (Flagyl -) 500 mg PO TID [facility] Last Admin: 04/24/17 06:10 Dose: 500 mg Ondansetron HCl (Zofran Injection) 8 mg IVPB Q6H PRN PRN Reason: NAUSEA Pantoprazole Sodium (Protonix -) 40 mg PO DAILY [facility] - Objective Vital Signs: Vital Signs Temperature 98.1 F 04/24/17 05:59 Pulse Rate 59 L 04/24/17 05:59 Respiratory Rate 18 04/24/17 05:59 Blood Pressure 118/50 04/24/17 05:59 O2 Sat by Pulse Oximetry (%) 97 04/22/17 20:45 Vital Signs Period Temp Pulse Resp BP Sys/George Pulse Ox Last 24 Hr 97.7 F-98.1 F 59-62 18-18 118-129/50-62 Constitutional: Yes: No Distress, Calm, Obese Gastrointestinal: Yes: Soft, Abdomen, Obese, Tenderness (minimal LLQ to deep palpation). No: Distention Extremities: No: Cool, Cyanosis Integumentary: No: Jaundice, Rash Neurological: Yes: Alert, Oriented. No: Unsteady Gait (slight favoring of right knee - having knee pain) Labs: no new labs Problem List - Problems (1) Diverticulitis large intestine w/o perforation or abscess w/o bleeding Assessment/Plan: uncomplicated recurrent diverticulitis feeling better, pain and tenderness decreased tolerating diet with no increase in pain no BM yet spoke to Dr. Noel change to augmentin and likely d/c home later today, complete 14d of abx GI/DVT prophylaxis GI/ID on board Pt was given my card. We had discussed possible sigmoidectomy after recovery. Pt has a trip planned. Also will f/u with Dr. Slaughter/GI. He states his last colonoscopy was 2 months ago. He is welcome to see me in the office to discuss elective operation. He is at risk for recurrence of diverticulitis prior to doing so; should seek medical attention at first symptoms for treatment. Code(s): K57.32 - DVTRCLI OF LG INT W/O PERFORATION OR ABSCESS W/O BLEEDING (2) Obesity (BMI 35.0-39.9 without comorbidity) Code(s): E66.9 - OBESITY, UNSPECIFIED (3) HTN (hypertension) Code(s): I10 - ESSENTIAL (PRIMARY) HYPERTENSION Qualifiers: Hypertension type: essential hypertension Qualified Code(s): I10 - Essential (primary) hypertension; I10 - Essential (primary) hypertension; I10 - Essential (primary) hypertension (4) Diabetes mellitus type 2 in obese Code(s): E11.69 - TYPE 2 DIABETES MELLITUS WITH OTHER SPECIFIED COMPLICATION E66.9 - OBESITY, UNSPECIFIED (5) GERD (gastroesophageal reflux disease) Code(s): K21.9 - GASTRO-ESOPHAGEAL REFLUX DISEASE WITHOUT ESOPHAGITIS Qualifiers: Esophagitis presence: without esophagitis Qualified Code(s): K21.9 - Gastro-esophageal reflux disease without esophagitis; K21.9 - Gastro- esophageal reflux disease without esophagitis; K21.9 - Gastro-esophageal reflux disease without esophagitis (6) Hyperlipidemia Code(s): E78.5 - HYPERLIPIDEMIA, UNSPECIFIED Qualifiers: Hyperlipidemia type: unspecified Qualified Code(s): E78.5 - Hyperlipidemia, unspecified; E78.5 - Hyperlipidemia, unspecified; E78.5 - Hyperlipidemia, unspecified
[2017-04-24] MEDS ORDERED: ASPIRIN COATED 81 MG TABLET.EC PO SCH (10:00)
[2017-04-24] MEDS ORDERED: PANTOPRAZOLE 40 MG TABLET (FP) PO SCH (10:00)
[2017-04-24] MEDS: CEFTRIAXONE 1 G/50 ML PREMIX 50 ML IVPB SCH (10:04)
[2017-04-24] MEDS: amLODIPine BESYLATE 5 MG TABLET (FP) PO SCH (10:04)
--- NOTE | 2017-04-24 13:00 | PN ---
Progress Note, Physician History of Present Illness: Awake, alert. Ambulatory C/O mild LLQ abdominal pain Tolerating diet No N/V No BM No c/o fever/ chills Afebrile WBC WNL - Current Medication List Current Medications: Active Medications Acetaminophen (Tylenol -) 650 mg PO Q6H PRN PRN Reason: FEVER OR PAIN Amlodipine Besylate (Norvasc -) 5 mg PO DAILY [facility] Last Admin: 04/24/17 10:04 Dose: 5 mg Aspirin (Ecotrin -) 81 mg PO DAILY [facility] Last Admin: 04/24/17 10:43 Dose: 81 mg CEFTRIAXONE 1 G/50 ML PREMIX (Ceftriaxone 1 Gm-D5w Bag) 50 mls @ 100 mls/hr IVPB DAILY [facility] Last Admin: 04/24/17 10:04 Dose: 100 mls/hr Insulin Aspart (Novolog Vial Sliding Scale -) 1 vial SQ ACHS [facility] PRN Reason: Protocol Last Admin: 04/24/17 11:43 Dose: Not Given Metronidazole (Flagyl -) 500 mg PO TID [facility] Last Admin: 04/24/17 06:10 Dose: 500 mg Ondansetron HCl (Zofran Injection) 8 mg IVPB Q6H PRN PRN Reason: NAUSEA Pantoprazole Sodium (Protonix -) 40 mg PO DAILY [facility] Last Admin: 04/24/17 10:43 Dose: 40 mg - Objective Vital Signs: Vital Signs Temperature 98.7 F 04/24/17 10:00 Pulse Rate 60 04/24/17 10:00 Respiratory Rate 20 04/24/17 10:00 Blood Pressure 139/87 04/24/17 10:00 O2 Sat by Pulse Oximetry (%) 97 04/22/17 20:45 Constitutional: Yes: No Distress Cardiovascular: Yes: Regular Rate and Rhythm, S1, S2 Respiratory: Yes: CTA Bilaterally Gastrointestinal: Yes: Normal Bowel Sounds, Soft, Tenderness, Other (mild LLQ tenderness) Edema: No Labs: CBC, BMP 04/23/17 06:10 04/23/17 06:10 INR, PTT INR 1.23 (0.82-1.09) H 04/21/17 01:55 Assessment/Plan Acute uncomplicated diverticulitis Improved Substitute po Augmentin Outpatient GI / Surgical follow up
[2017-04-24 14:13] VITALS: BP 147/82; PULSE 61; TEMP 98.1
== END 2017-04-24 15:56 | disposition home or self-care (01) | DRG 392 ==
LOC: JER 01:24 → JERBED 05:35 → UNDOADMIN 05:39 → JERBED 05:39 → J6S 06:32
PROVIDERS: ADMIT Family Medicine; ATTEND Family Medicine
DX: K57.32 Diverticulitis of large intestine without perforation or abscess without bleeding (principal); K42.9 Umbilical hernia without obstruction or gangrene; E78.5 Hyperlipidemia, unspecified; E66.8 Other obesity; Z68.37 Body mass index [BMI] 37.0-37.9, adult; R10.32 Left lower quadrant pain; E11.69 Type 2 diabetes mellitus with other specified complication; I10 Essential (primary) hypertension; R10.84 Generalized abdominal pain; N28.1 Cyst of kidney, acquired; K21.9 Gastro-esophageal reflux disease without esophagitis; M54.5 Low back pain; M17.12 Unilateral primary osteoarthritis, left knee; Z87.442 Personal history of urinary calculi; Z91.14 Patient's other noncompliance with medication regimen
CPT/HCPCS: 36415; 71010-TC; 74177-TC; 80053; 80061; 81003; 82550; 83036; 83690; 83721; 84484; 85025; 85027; 85610; 85651; 86140; 93005; 93010; 99283-25

== ENCOUNTER 2018-11-16 13:59 | Emergency (ER) | payer MEDICARE, OTHER | END 2018-11-16 16:35 | disposition home or self-care (01) | LOC: JER 13:59 ==

== ENCOUNTER 2019-04-30 08:12 | Day surgery (SDC) | payer MEDICARE, OTHER ==
[2019-04-29 11:42] VITALS: BMI 34.3
[2019-04-30] MEDS ORDERED: ceFAZolin SODIUM 1 GM VIAL ONE (10:34)
[2019-04-30] MEDS ORDERED: LIDOCAINE HCL/PF 2% SDV 5ML VIAL ONE (10:34)
[2019-04-30] MEDS ORDERED: MIDAZOLAM HCL 2 MG/2 ML SINGLE DOSE VIAL ONE (10:35)
[2019-04-30] MEDS ORDERED: PROPOFOL 20 ML ONE (10:35)
[2019-04-30] MEDS ORDERED: IBUPROFEN 800 MG/8 ML IJ IVPB PRN (10:44)
[2019-04-30] MEDS ORDERED: oxyCODONE HCL 5 MG TABLET PO PRN ×2 (10:44→17:16)
[2019-04-30] MEDS ORDERED: ONDANSETRON 4 MG/2 ML VIAL IVPUSH PRN (10:44)
[2019-04-30] MEDS ORDERED: LACTATED RINGERS SOLUTION 1,000 ML IV SCH (10:45)
[2019-04-30] MEDS ORDERED: ceFAZolin SODIUM 1 GM VIAL IVPB ONE (11:30)
--- NOTE | 2019-04-30 12:25 | OP ---
Operative Note - Note: Operative Date: 04/30/19 Pre-Operative Diagnosis: microhematuria,lt. hydro, bph with luts Operation: cysto,lt. retrograde pyelogram, lt. ureteroscopy and renal pelvic washings for cytology and tuvp Findings: trilobar prostate hypertrophy and h/o hematuria Post-Operative Diagnosis: Same as Pre-op Surgeon: Tori Guzman Anesthesia: General Specimens Removed: urine from bladder and urine from lt. renal pelvis and prostate tissue Estimated Blood Loss (mls): 20 Drains & Tubes with Location: 24f-2way 30cc ross Drains, Volume Out (mls): 0 Blood Volume Replaced (mls): 0 Fluid Volume Replaced (mls): 0 Operative Report Dictated: Yes
--- NOTE | 2019-04-30 14:29 | PREOP ---
DATE OF ADMISSION: 04/30/2019 DATE OF DICTATION: 04/30/2019 HISTORY OF PRESENT ILLNESS: Patient is a 68-year-old male with history of prostatism, including frequency, urgency, nocturia, and feelings of incomplete bladder emptying. Patient has also had a history of persistent microscopic hematuria, as well as low back pain. An ultrasound of the kidney revealed bilateral upper pole cysts; there is a 4.1-cm right upper pole cyst and a 3.5-cm left upper pole cyst with multiple septations and has characteristics of a Bosniak II. The patient also has a history of diabetes, hypertension, and dyslipidemia. PHYSICAL EXAMINATION: General: Reveals a well-developed, adult male. Abdomen: Soft. There is mild bilateral CVA tenderness. Chest: Clear. Genitalia: Atraumatic. Prostate is 2+, smooth, benign, nontender. Extremities: Reveal full range of motion with no cyanosis, clubbing or edema. LABORATORY DATA: BUN and creatinine are 18 over 1.2, respectively. PSA is 0.7. PLAN: For a cystoscopy, left retrograde pyelogram, left ureteroscopy, left renipelvic washings, possible vaporization of prostate and/or bladder neck. Merlene [id number]
--- NOTE | 2019-04-30 15:05 | OP ---
DATE OF OPERATION: 04/30/2019 PREOPERATIVE DIAGNOSES: Left hydronephrosis, persistent microscopic hematuria, and prostatism. POSTOPERATIVE DIAGNOSES: Trilobar hypertrophy of the prostate, grade 2 trabeculation of the bladder, and no evidence of left hydronephrosis. OPERATIVE PROCEDURES: Cystourethroscopy, left retrograde pyelogram, left ureteroscopy, left renal-pelvic washings for cytology, and transurethral vaporization of prostate. ANESTHESIA: General. DESCRIPTION OF PROCEDURE: Under above-stated anesthesia, patient was prepped and draped in the usual sterile manner. He was placed in the dorsal lithotomy position. Cystoscopy revealed tri-lobar hypertrophy of the prostate, lateral lobes were kissing. Bladder was entered. There was a grade 3 trabeculation of the bladder. Ureteral orifices were within normal limits with efflux of clear urine. A FlexTip was placed in the left ureteral orifice and 10 mL of contrast was injected. This revealed a normal renal unit with no evidence of hydronephrosis. Ureteroscopy was performed up to the level of the renal pelvis. Normal saline was injected into the renal pelvis and then aspirated for exfoliative cytology. No pathology was found. Attention was brought to the prostate where a vapor button was introduced and the prostate was vaporized in the usual fashion. No active bleeding was noted. The bladder was emptied. The scope was removed. A 20-[place] Starr was inserted. This was connected to a drainage bag. The patient tolerated the procedure well. He returned to the recovery room in good condition. Merlene [id number]
[2019-04-30] MEDS ORDERED: oxyCODONE HCL 5 MG TABLET ONE ×2 (15:23→17:01)
[2019-04-30 18:16] VITALS: BP 133/71; PULSE 79; TEMP 98
--- NOTE | 2019-04-30 18:35 | OP ---
DATE OF OPERATION: 04/30/2019 PREOPERATIVE DIAGNOSIS: Persistent microscopic hematuria, prostatism, and left flank pain. POSTOPERATIVE DIAGNOSIS: Persistent microscopic hematuria, prostatism, and left flank pain. OPERATIVE PROCEDURE: Cystourethroscopy, left retrograde pyelogram, left ureteroscopy, left renal pelvic washings, and transurethral resection of prostate, transurethral vaporization of prostate. ANESTHESIA: General. DESCRIPTION OF PROCEDURE: Under above stated anesthesia, patient was prepped and draped in the usual sterile manner. He was placed in the dorsal lithotomy position. Cystoscopy revealed trilobar hypertrophy of the prostate. The bladder was entered. Urine was collected for cytology and culture and sensitivity. There was a grade 2 trabeculation of the bladder . No lesions or calculi were seen. A left retrograde pyelogram was performed. This revealed fullness of the left renal pelvis, but no filling defect or hydronephrosis. A wire was placed in the left renal unit. Ureteroscopy was performed in the usual fashion. The ureter appeared to be normal. The renal pelvis revealed no lesions or calculi. Therefore 10 mL of normal saline was injected into the left renal pelvis and then aspirated for exfoliated cytology. The ureteroscope was removed. A resectoscope was then introduced. The prostate was vaporized using a bipolar button in the usual fashion. Hemostasis was secured with electrocoagulation. Prostate chips were evacuated with an [employer] evacuator. The bladder was then emptied. A 24 Czech 30 mL Starr was inserted. This was connected to a drainage bag. The patient tolerated the procedure well. He returned to the recovery room in good condition. Merlene [id number]
--- NOTE | 2019-05-01 15:16 | PATH ---
Cytology Non-Gynecological Report Patient Name: LILIA ROCHE [facility]. Rec. #: [id number] /Age/Gender: 1950 (Age: 68) / M Account: [id number] Location: [facility] Taken: 04/30/2019 Received: 04/30/2019 Reported: 05/01/2019 Physicians: Tori Guzman M.D. Specimen(s) Received URETERAL WASHING Clinical History Ureteral washing Final Diagnosis URETERAL WASHING FOR CYTOLOGY: SATISFACTORY FOR EVALUATION. NEGATIVE FOR HIGH GRADE UROTHELIAL CARCINOMA. SCATTERED UROTHELIAL CELLS AND UROTHELIAL FRAGMENTS PRESENT. Comment: Urothelial fragments are suggestive of prior instrumentation, however the cytologic differential diagnosis include lithiasis and low grade papillary neoplasm. Suggest clinical/radiologic correlation. See concurrent materials ([id number] and [id number]) Electronically Signed Modesta Meyers M.D. Gross Description Approximately 5 cc of pink fluid received fresh. One cytofunnel prepared and Pap stained.
--- NOTE | 2019-05-01 15:19 | PATH ---
Cytology Non-Gynecological Report Patient Name: LILIA ROCHE [facility]. Rec. #: [id number] /Age/Gender: 1950 (Age: 68) / M Account: [id number] Location: [facility] Taken: 04/30/2019 Received: 04/30/2019 Reported: 05/01/2019 Physicians: Tori Guzman M.D. Specimen(s) Received BLADDER URINE Clinical History Bladder urine Final Diagnosis BLADDER URINE FOR CYTOLOGY: SATISFACTORY FOR EVALUATION. NEGATIVE FOR HIGH GRADE UROTHELIAL CARCINOMA. SCATTERED UROTHELIAL CELLS PRESENT. RARE UROTHELIAL FRAGMENTS PRESENT. Comment: Urothelial fragments are suggestive of prior instrumentation, however the cytologic differential diagnosis include lithiasis and low grade papillary neoplasm. Suggest clinical/radiologic correlation. See concurrent materials ([id number] and [id number]). Electronically Signed Modesta Meyers M.D. Gross Description Approximately 60 cc of pale pink fluid received fresh. One cytofunnel prepared and Pap stained.
--- NOTE | 2019-05-02 18:30 | PATH ---
Surgical Pathology Report Patient Name: LILIA ROCHE [facility]. Rec. #: [id number] /Age/Gender: 1950 (Age: 68) / M Account: [id number] Location: [facility] Taken: 04/30/2019 Received: 05/01/2019 Reported: 05/02/2019 Physicians: Tori Guzman M.D. Specimen(s) Received PROSTATE TISSUE Clinical History Hematuria, BPH Final Diagnosis PROSTATE TISSUE, TRANSURETHRAL RESECTION OF THE PROSTATE: FRAGMENST OF BENIGN PROSTATE TISSUE. Electronically Signed Junie Parker M.D. Gross Description Received in formalin labeled "prostate tissue," is a less than 1 g, 1.0 x 0.6 x 0.1 cm aggregate of luna soft tissue fragments, consistent with prostate chips. The specimen is entirely submitted in one cassette. /05/01/201905/01/2019
== END 2019-04-30 18:15 | disposition home or self-care (01) ==
LOC: JASU-SURG 08:12
PROVIDERS: ATTEND Urology
PROC: BT1FYZZ Fluoroscopy of Left Kidney, Ureter and Bladder using Other Contrast (ICD-10-PCS; 2019-04-30)
PROC: 0V508ZZ Destruction of Prostate, Via Natural or Artificial Opening Endoscopic (ICD-10-PCS; 2019-04-30)
PROC: 0V508ZZ Destruction of Prostate, Via Natural or Artificial Opening Endoscopic (ICD-10-PCS; principal; 2019-04-30 10:00)
DX: N40.1 Benign prostatic hyperplasia with lower urinary tract symptoms (principal); R31.29 Other microscopic hematuria; R10.9 Unspecified abdominal pain; I10 Essential (primary) hypertension; E11.9 Type 2 diabetes mellitus without complications; Z79.84 Long term (current) use of oral hypoglycemic drugs; K21.9 Gastro-esophageal reflux disease without esophagitis
CPT/HCPCS: 82962; 87086; 88305-TC; 94760

== ENCOUNTER 2019-12-25 17:45 | Inpatient (IN) | payer MEDICARE, OTHER ==
[2019-12-25 17:52] VITALS: BMI 34.3
--- NOTE | 2019-12-25 18:37 | PDOC ---
Rapid Medical Evaluation Chief Complaint: Urinary Problem Time Seen by Provider: 12/25/19 17:49 Medical Evaluation: Allergies Allergy/AdvReac Type Severity Reaction Status Date / Time No Known Allergies Allergy Verified 12/25/19 17:52 Vital Signs Temp Pulse Resp BP Pulse Ox 98.6 F 60 18 117/62 97 12/25/19 17:48 12/25/19 17:48 12/25/19 17:48 12/25/19 17:48 12/25/19 17:48 12/25/19 18:35 CC: retention of urine since this afternoon, diff urinating since sunday. Urologist told him to come in Exam: suprapubic tenderness with mild distention Plan: urine and f/c Discharge Disposition - Diagnosis Urinary retention - Discharge Dispostion Last Admission D/C Date: 04/24/17 - Referrals Referrals: Isha Noel MD [Primary Care Provider] - - Patient Instructions - Post Discharge Activity
--- NOTE | 2019-12-25 20:10 | PDOC ---
Documentation entered by Melanie Freed SCRIBE, acting as scribe for Rigoberto Nash MD. Rigoberto Nash MD: This documentation has been prepared by the abdullahi, Melanie Freed SCRIBE, under my direction and personally reviewed by me in its entirety. I confirm that the documentation accurately reflects all work, treatment, procedures, and medical decision making performed by me. Attending Attestation - Resident Resident Name: Nicolas Shelton - ED Attending Attestation I have performed the following: I have examined & evaluated the patient, The case was reviewed & discussed with the resident, I agree w/resident's findings & plan, Exceptions are as noted - HPI HPI: 12/25/19 20:07 The patient is a 69 year old male with past medical history significant for DM type 2, HTN, HLD, GERD, diverticulitis, and arthritis who was sent to the emergency department by urologist for difficulty urinating since Sunday and urinary retention since this afternoon. Allergies: NKA PCP: Dr. Noel. 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
[2019-12-25 21:12] LABS: EPI CELLS >36 /uL (0-25.1); HYALINE CASTS 40 /uL (0-3.1); PH,URINE 5.5 (5.0-8.0); URINE APPEARANCE TURBID; URINE BACTERIA 65 /uL (0-1359); URINE BILIRUBIN NEGATIVE (NEGATIVE); URINE COLOR YELLOW; URINE GLUCOSE (UA) NEGATIVE (NEGATIVE); URINE KETONE NEGATIVE (NEGATIVE); URINE LEUK ESTERASE 3+ (NEGATIVE); URINE NITRITE NEGATIVE (NEGATIVE); URINE PROTEIN 2+ (NEGATIVE); URINE RBC 215 /uL (0-23.9); URINE UROBILINOGEN 0.2 mg/dL (0.2-1.0); URINE WBC 328 /uL (0-25.8)
[2019-12-25] MEDS ORDERED: ACETAMINOPHEN 325 MG TABLET (FP) PO ONE (21:28)
[2019-12-25] MEDS ORDERED: CEFTRIAXONE 1,000 MG in DEXTROSE 5%-WATER - 50 ML IVPB ONE (21:31)
[2019-12-25] MEDS ORDERED: ACETAMINOPHEN 325 MG TABLET (FP) ONE (21:35)
[2019-12-25 21:50] LABS: BASO % 0.3 % (0-2.0); EOS % 1.6 % (0-4.5); HEMATOCRIT 38.5 % (35.4-49); HEMOGLOBIN 12.5 GM/dL (11.7-16.9); LYMPH % 14.2 % (8-40); MCH 27.6 pg (25.7-33.7); MCHC 32.5 g/dl (32.0-35.9); MEAN CELL VOLUME 84.8 fl (80-96); MEAN PLT VOLUME 7.4 fl (7.5-11.1); NEUT % 70.9 % (42.8-82.8); PLATELET COUNT 267 K/MM3 (134-434); RBC 4.54 M/mm3 (4.00-5.60); RDW 13.2 % (11.9-15.9); WHITE BLOOD COUNT 9.9 K/mm3 (4.0-10.0)
[2019-12-25] MEDS ORDERED: CEFTRIAXONE 1 GM/50 ML BAG ONE (21:52)
--- NOTE | 2019-12-25 21:53 | PDOC ---
History of Present Illness - General Chief Complaint: Urinary Problem Stated Complaint: URINARY PROBLEMS Time Seen by Provider: 12/25/19 17:49 History Source: Family Exam Limitations: No Limitations - History of Present Illness Initial Comments: 12/25/19 21:50 69 year old male with history of HTN, DM, and s/p recent left ureteral stent presents with complaint of urinary retention. The patient's family is at bedside reporting history and states that he had a catheter removed on sunday but was unable to be replaced. Since then he's been dribbling urine and has remained febrile on day 4 of TMP-SMX. Reports constant suprapubic discomfort. Denies hematuria, n/v, chest pain, SOB, cough, lightheadedness, dizziness, syncope, diarrhea or constipation. 12/25/19 21:55 Past History - Medical History Allergies/Adverse Reactions: Allergies Allergy/AdvReac Type Severity Reaction Status Date / Time No Known Allergies Allergy Verified 12/25/19 17:52 Home Medications: Ambulatory Orders Amlodipine Besylate [Norvasc -] 5 mg PO DAILY 11/16/18 Glipizide [Glipizide ER] 5 mg PO DAILY 11/16/18 Losartan Potassium [Cozaar] 100 mg PO DAILY 11/16/18 Tamsulosin HCl [Flomax] 0.4 mg PO DAILY 11/16/18 Anemia: No Asthma: No Cancer: No Cardiac Disorders: No CVA: No COPD: No CHF: No DVT: No Dementia: No Diabetes: Yes Dialysis: No GI Disorders: Yes (gerd) Disorders: Yes (KIDNEY STONES) HTN: Yes Hypercholesterolemia: No Kidney Stones: No Liver Disease: No Psychiatric Problems: No Seizures: No Thyroid Disease: No Lung CA: No - Surgical History Abdominal Surgery: Yes (umb.hernia) Appendectomy: No Cardiac Surgery: No Cholecystectomy: No Gastric Stapling: No Lung Surgery: No Neurologic Surgery: No Orthopedic Surgery: Yes (l knee) - Psycho-Social/Smoking History Smoking Status: No Smoking History: Never smoked Have you smoked in the past 12 months: No Number of Cigarettes Smoked Daily: 0 - Substance Abuse Hx (Audit-C & DAST Scrn) How often the patient has a drink containing alcohol: Never Score: In Men: 4 or > Positive; In Women: 3 or > Positive: 0 Screen Result (Pos requires Nsg. Audit-10AR): Negative Review of Systems - Review of Systems Able to Perform ROS?: Yes Is the patient limited Georgian proficient: Yes Constitutional: Yes: Fever Respiratory: No: Cough, Shortness of Breath Cardiac (ROS): No: Chest Pain, Lightheadedness, Syncope ABD/GI: No: Constipated, Diarrhea, Nausea, Vomiting : Yes: Pain. No: Flank Pain, Hematuria, Testicular Swelling Musculoskeletal: No: Back Pain Neurological: No: Dizziness *Physical Exam - Vital Signs Last Vital Signs Temp Pulse Resp BP Pulse Ox 98.6 F 60 18 117/62 97 12/25/19 17:48 12/25/19 17:48 12/25/19 17:48 12/25/19 17:48 12/25/19 17:48 - Physical Exam General Appearance: Yes: Nourished, Appropriately Dressed. No: Apparent Distress HEENT: positive: EOMI, Normal Voice Neck: positive: Trachea midline Respiratory/Chest: positive: Lungs Clear, Normal Breath Sounds. negative: Respiratory Distress Cardiovascular: positive: Regular Rhythm, Regular Rate Gastrointestinal/Abdominal: positive: Tender (suprapubic tenderness), Soft. negative: Distended, Guarding Male Genitalia: positive: discharge. negative: testicular tenderness, hematuria ED Treatment Course - LABORATORY CBC & Chemistry Diagram: 12/25/19 21:30 12/25/19 21:30 - ADDITIONAL ORDERS Additional order review: Laboratory Results 12/25/19 20:45 Urine Color Yellow Urine Appearance Turbid Urine pH 5.5 D Ur Specific Brea 1.010 Urine Protein 2+ H Urine Glucose (UA) Negative Urine Ketones Negative Urine Blood 3+ H Urine Nitrite Negative Urine Bilirubin Negative Urine Urobilinogen 0.2 Ur Leukocyte Esterase 3+ H Urine WBC (Auto) 328 Urine RBC (Auto) 215 Urine Casts (Auto) 40 U Pathogenic Cast Auto none U Epithel Cells (Auto) >36 U Sm Round Cell (Auto) none Urine Bacteria (Auto) 65 - Medications Given in the ED: ED Medications Discontinued Medications Generic Name Dose Route Start Last Admin Trade Name Freq PRN Reason Stop Dose Admin Acetaminophen 650 mg 12/25/19 21:28 12/25/19 21:44 Tylenol - PO 12/25/19 21:29 650 mg ONCE ONE Administration Medical Decision Making - Medical Decision Making 12/25/19 22:22 Patient is a 69 year old male s/p recent left ureteral stent with urinary retention. Patient remains febrile on day 4 of TMP-SMX. He has suprapubic tenderness on palpation but no CVA tenderness. He has no hematuria, testicular pain or swelling. Catheter placement was attempted but unsuccessful. Patient is dribbling urine but retaining 140mL, visualized via ultrasound. He's remaining febrile after 4 days of TMP-SMX. Patient will be started on 1g Ceftriaxone and admitted for IV antibiotics and urology consult. Administered 650mg tylenol PO, reports mild improvement. Discharge - Discharge Information Problems reviewed: Yes Clinical Impression/Diagnosis: Urinary retention - Admission Yes - Follow up/Referral Referrals: Isha Noel MD [Primary Care Provider] - - Patient Discharge Instructions - Post Discharge Activity
[2019-12-25 22:19] LABS: ALBUMIN 3.3 g/dl (3.4-5.0); BILIRUBIN,TOTAL 0.3 mg/dL (0.2-1); CREATININE 2.5 mg/dL (0.55-1.3); TOT PROT 6.4 g/dl (6.4-8.2)
[2019-12-25 22:20] LABS: BLOOD UREA NITROGEN 18.2 mg/dL (7-18)
--- NOTE | 2019-12-25 22:47 | PN ---
Teaching Attending Note Name of Resident: Gemini Patterson ATTENDING PHYSICIAN STATEMENT I saw and evaluated the patient. I reviewed the resident's note and discussed the case with the resident. I agree with the resident's findings and plan as documented. SUBJECTIVE: Patient is a 69 year old man with a PMH of Kidney stones, GERD, HTN, HLD, D iverticulitis, Arthritis, NIDDM and Recent left ureteral stent placement who presents with complaint of difficulty urinating for four days. The patient's family is at bedside reporting history and states that he had a catheter removed on Sunday but was unable to be replaced. Since then he's been dribbling urine and has remained febrile on day 4 of TMP-SMX. Reports constant suprapubic discomfort. Denies hematuria, nausea, vomiting, chest pain, SOB, cough, lightheadedness, dizziness, syncope, diarrhea or constipation. Denies alcohol, tobacco or illicit drug use. No sick contacts or recent travels. Family history is unremarkable. OBJECTIVE: Alert Vital Signs Period Temp Pulse Resp BP Sys/George Pulse Ox Last 24 Hr 98.6 F 60 18 117/62 97 HEENT: No Jaundice, eye redness or discharge, PERRLA, EOMI. Normocephalic, atraumatic. External ears are normal and hearing is grossly intact. No nasal discharge. Neck: Supple, nontender. No palpable adenopathy or thyromegaly. No JVD Chest: Good effort. Clear to auscultation and percussion. Heart: Regular. No S3, rub or murmur Abdomen: Not distended, soft, suprapubic tenderness and no HSM. No rebound or guarding. Normal bowel sounds. Ext: Peripheral pulses intact. No leg edema. Skin: Warm and dry. No petechiae, rash or ecchymosis. Neuro: Alert. Oriented x3. CN 2-12 grossly intact. Sensation grossly intact in all four extremities and DTR are symmetric. Psych: Appropriate mood and affect. Good insight. Home Medications Medication Instructions Recorded Amlodipine Besylate [Norvasc -] 5 mg PO DAILY 11/16/18 Glipizide [Glipizide ER] 5 mg PO DAILY 11/16/18 Losartan Potassium [Cozaar] 100 mg PO DAILY 11/16/18 Tamsulosin HCl [Flomax] 0.4 mg PO DAILY 11/16/18 Abnormal Lab Results 12/25/19 12/25/19 12/25/19 20:45 21:30 21:30 MPV 7.4 L D Monocytes % 13.0 H Carbon Dioxide 34 H Anion Gap 3 L BUN 18.2 H Creatinine 2.5 H AST 14 L Albumin 3.3 L Urine Protein 2+ H Urine Blood 3+ H Ur Leukocyte Esterase 3+ H ASSESSMENT AND PLAN: 1. UTI/Urinary retention/TONYA - Starr catheter will be replaced. Patient started on IV Ceftriaxone 1 gm q 24 hours. Will get kidney sonogram, hydrate gently, monitor urine output and consult Nephrology and Urology. Avoid nephrotoxic agents such as NSAIDS, aminoglycosides, contrast dyes and certain Alternative medicine products. Viral testing for COVID-19 ordered and patient placed on airborne, droplet and contact isolation. EKG pending. Will continue comprehensive care for all of patients comorbid conditions. 2. Hypoalbuminemia - Possibly due to combined effects of proteinuria, malnutrition and inflammation associated with comorbid conditions. Will ensure adequate dietary protein intake and also consult production assistant. 3. DM For now, we will hold the home diabetes drugs and implement sliding scale insulin regimen. Provide comprehensive diabetes care with patient teaching and counseling about the importance of adherence to prescribed diabetes regimen, euglycemia, eye care and foot care. 4. Obesity Counseled on the risks associated with obesity. Will provide patient all the necessary assistance, counseling and positive reinforcement to facilitate weight loss. Consult production assistant. 5. Hypertension Will restart suitable outpatient antihypertensive drugs when clinically appropriate. Subsequently, will revise regimen to ensure [id number] excellent BP control. Patient counseled on the injurious effects of uncontrolled hypertension. Nonpharmacologic measures to control hypertension like weight loss, salt restriction and exercise stressed. Importance of adherence to treatment regimen and attainment of normotension emphasized. 6. DVT prophylaxis - Heparin 5000u sq tid. 7. Advance directives - Full code
--- NOTE | 2019-12-26 05:00 | HP ---
CHIEF COMPLAINT: Trouble urinating PCP: Bert HISTORY OF PRESENT ILLNESS: 69 years old male PMH of HLD, HTN, DM, s/p left ureteral stent(6months ago) presents with difficulty urinating and Suprapubic abdominal pain, that is nonradiating and constant. Patient reports that he a his Starr removed on sunday and was started on Bactrim. He reports, since removal of his Starr, he has been dribbling urine with difficulty to completely empty bladder. Today he reports that hew was able to urinate in the ED and feels a little better afterwards. In the ED he failed catheter replacement and urology has been consulted for replacement. ER course was notable for: (1)Acute UTI (2)Urinary retention (3)TONYA Recent Travel: Denies PAST MEDICAL HISTORY: As above in HPI PAST SURGICAL HISTORY: Denies Social History: Smoking: Denies Alcohol: Denies Drugs: Denies Allergies No Known Allergies Allergy (Verified 12/25/19 17:52) HOME MEDICATIONS: Home Medications Medication Instructions Recorded Amlodipine Besylate [Norvasc -] 5 mg PO DAILY 11/16/18 Glipizide [Glipizide ER] 5 mg PO DAILY 11/16/18 Losartan Potassium [Cozaar] 100 mg PO DAILY 11/16/18 Tamsulosin HCl [Flomax] 0.4 mg PO DAILY 11/16/18 REVIEW OF SYSTEMS CONSTITUTIONAL: Absent: fever, chills, generalized weakness, malaise, loss of appetite, HEENT: Absent: rhinorrhea, nasal congestion, throat pain, difficulty swallowing, visual changes CARDIOVASCUlAR Absent: peripheral edema RESPIRATORY: Absent: cough, shortness of breath, dyspnea with exertion, orthopnea, GASTROINTESTINAL: Absent: abdominal pain, nausea, vomiting, diarrhea, constipation, GENITOURINARY: Absent: dysuria, frequency, urgency, hematuria HEMATOLOGIC/IMMUNOLOGIC: Absent: easy bleeding, easy bruising, lymphadenopathy, frequent infections NEUROLOGIC: Absent: focal weakness or paresthesias, dizziness, bladder or bowel incontinence PSYCHIATRIC: Absent: depression PHYSICAL EXAMINATION Vital Signs - 24 hr 12/25/19 12/26/19 17:48 00:30 Temperature 98.6 F 99.1 F Pulse Rate 60 Pulse Rate [ 80 Left Radial] Respiratory 18 18 Rate Blood Pressure 117/62 Blood Pressure 119/60 [Right Arm] O2 Sat by Pulse 97 97 Oximetry (%) GENERAL: Awake, alert, and fully oriented, in no acute distress. HEAD: Normal with no signs of trauma. EYES: Pupils equal, round and reactive to light, extraocular movements intact, sclera anicteric, conjunctiva clear. EARS, NOSE, THROAT: Ears normal, nares patent, oropharynx clear without exudates. Moist mucous membranes. NECK: supple without lymphadenopathy, JVD, or masses. LUNGS: Breath sounds equal, clear to auscultation bilaterally. No wheezes, and no crackles. No accessory muscle use. HEART: regular rate and rhythm, normal S1 and S2 without murmur, rub or gallop. ABDOMEN: Soft, Suprapubic tenderness to palpation, not distended, normoactive bowel sounds, no guarding, no rebound, no masses, no CVA tenderness. UPPER EXTREMITIES: 2+ pulses, warm, well-perfused. No cyanosis. No clubbing. No peripheral edema. LOWER EXTREMITIES: 2+ pulses, warm, well-perfused. No peripheral edema. PSYCHIATRIC: Cooperative. Good eye contact. Appropriate mood and affect. SKIN: Warm, dry, no rashes or lesions noted Laboratory Results - last 24 hr 12/25/19 12/25/19 12/25/19 20:45 21:30 21:30 WBC 9.9 RBC 4.54 Hgb 12.5 Hct 38.5 MCV 84.8 MCH 27.6 MCHC 32.5 RDW 13.2 Plt Count 267 MPV 7.4 L D Absolute Neuts (auto) 7.0 Neutrophils % 70.9 D Lymphocytes % 14.2 D Monocytes % 13.0 H Eosinophils % 1.6 Basophils % 0.3 Nucleated RBC % 0 Sodium 137 Potassium 4.0 Chloride 100 Carbon Dioxide 34 H Anion Gap 3 L BUN 18.2 H Creatinine 2.5 H Est GFR (CKD-EPI)AfAm 29.27 Est GFR (CKD-EPI)NonAf 25.25 Random Glucose 94 Calcium 9.0 Total Bilirubin 0.3 AST 14 L ALT 17 Alkaline Phosphatase 58 Total Protein 6.4 Albumin 3.3 L Urine Color Yellow Urine Appearance Turbid Urine pH 5.5 D Ur Specific Sharon 1.010 Urine Protein 2+ H Urine Glucose (UA) Negative Urine Ketones Negative Urine Blood 3+ H Urine Nitrite Negative Urine Bilirubin Negative Urine Urobilinogen 0.2 Ur Leukocyte Esterase 3+ H Urine WBC (Auto) 328 Urine RBC (Auto) 215 Urine Casts (Auto) 40 U Pathogenic Cast Auto none U Epithel Cells (Auto) >36 U Sm Round Cell (Auto) none Urine Bacteria (Auto) 65 ASSESSMENT/PLAN: This is a 69 years old male with a PMH of HLD, HTN, DM, S/P left ureteral stent presented with abdominal pain and difficulty voiding, Labs reveale 2+ protein, 3+ blood and 3+ leuk est. He is admitted for management of Acute UTI and for replacement of his Starr. #UTI Assessment: - Presents with suprapubic pain, T 99.1 - Most likely secondary to obstruction- Unable to pass Starr Plan: - Continue Rocephin 1 gm IV - US Kidney/renal is pending - Monitor Urine output - F/U urine Culture # Urinary retention: Assessment: - patient is unable to empty his bladder completely - Bladder scan @ bedside revealed retention of 140cc, post void Plan: - Urology is consulted for replacement of his Starr - Continue Flomax 0.4mg ( Meds will need to be confirmed in the morning) #TONYA Assessment: - most likely secondary to obstructive pathology - BUN/Crea: 18.2/2.5 (baseline 1.2) Plan: - Nephrology is consulted for further evaluation, will F/U with recs - F/U U/S Kidney/renal - Monitor Urine output # Hematuria: Assessment: - possibly secondary to trauma vs Bladder Ca - 3+ blood is seen on UA Plan: - Repeat UA - If repeat UA is positive for blood, recommends outpatient evaluation with Cystoscopy # Hx of Diabetes Mellitus: - Placed on BGM with a Novolog sliding scale #DVT Prophylaxis: Heparin 5,000 unit # Dispo: admit to Med-Surg IVF: None Diet: Diabetic GI: none Consults: Nephrology Visit type - Emergency Visit Emergency Visit: Yes ED Registration Date: 12/25/19 Care time: The patient presented to the Emergency Department on the above date and was hospitalized for further evaluation of their emergent condition. - New Patient This patient is new to me today: Yes Date on this admission: 12/27/19 - Critical Care Critical Care patient: No ATTENDING PHYSICIAN STATEMENT I saw and evaluated the patient. I reviewed the resident's note and discussed the case with the resident. I agree with the resident's findings and plan as documented. SUBJECTIVE: OBJECTIVE: ASSESSMENT AND PLAN:
[2019-12-26 06:12] LABS: BASO % 0.3 % (0-2.0); EOS % 1.5 % (0-4.5); HEMATOCRIT 39.1 % (35.4-49); HEMOGLOBIN 12.8 GM/dL (11.7-16.9); LYMPH % 13.5 % (8-40); MCH 27.5 pg (25.7-33.7); MCHC 32.7 g/dl (32.0-35.9); MEAN CELL VOLUME 84.3 fl (80-96); MEAN PLT VOLUME 7.6 fl (7.5-11.1); MONO % 14.4 % (3.8-10.2); NEUT % 70.3 % (42.8-82.8); PLATELET COUNT 259 K/MM3 (134-434); RBC 4.64 M/mm3 (4.00-5.60); RDW 13.5 % (11.9-15.9); WHITE BLOOD COUNT 9.6 K/mm3 (4.0-10.0)
[2019-12-26] MEDS ORDERED: HEPARIN NA (PORCINE) 5,000 UNITS/ML 1ML VIAL ONE (06:12)
[2019-12-26] MEDS: HEPARIN NA (PORCINE) 5,000 UNITS/ML 1ML VIAL SQ SCH ×3 (06:15→21:12)
[2019-12-26 06:44] LABS: ALBUMIN 3.1 g/dl (3.4-5.0); BILIRUBIN,TOTAL 0.5 mg/dL (0.2-1); BLOOD UREA NITROGEN 16.3 mg/dL (7-18); CALCIUM 8.9 mg/dL (8.5-10.1); CREATININE 2.5 mg/dL (0.55-1.3); MAGNESIUM 2.2 mg/dL (1.8-2.4); PHOSPHOROUS 3.6 mg/dL (2.5-4.9); POTASSIUM 3.3 mmol/L (3.5-5.1); TOT PROT 6.1 g/dl (6.4-8.2)
[2019-12-26] MEDS: INSULIN SLIDING SCALE (NOVOLOG) 1 VIAL SQ SCH ×2 (07:26→12:14)
[2019-12-26 08:25] LABS: EPI CELLS 4 /uL (0-25.1); HYALINE CASTS 1 /uL (0-3.1); PH,URINE 7.5 (5.0-8.0); URINE APPEARANCE CLEAR; URINE BILIRUBIN NEGATIVE (NEGATIVE); URINE COLOR YELLOW; URINE GLUCOSE (UA) NEGATIVE (NEGATIVE); URINE KETONE NEGATIVE (NEGATIVE); URINE LEUK ESTERASE 2+ (NEGATIVE); URINE NITRITE POSITIVE (NEGATIVE); URINE PROTEIN TRACE (NEGATIVE); URINE RBC 14 /uL (0-23.9); URINE UROBILINOGEN 0.2 mg/dL (0.2-1.0); URINE WBC 262 /uL (0-25.8)
[2019-12-26 09:34] LABS: URINE BACTERIA 119.4 /uL (0-1359)
--- NOTE | 2019-12-26 09:37 | CONSULT ---
Consult Consult Specialty:: Nephrology Reason for Consultation:: TONYA - History of Present Illness Chief Complaint: suprapubic pain History of Present Illness: Pt is a 69 year old male with pmhx of hld, htn, dm, left uretral stent who presents to the ER with dysuria and suprapubic pain. He has had the symptoms for several days. He says that he had a ross that was removed on sunday. He was also put on bactrim for uti. He was found to have elevated informaticist and I was called to evaluate him. He denies shortness of breath. He denies fevers or chills. He denies nsaid use. - History Source History Provided By: Patient, Medical Record - Past Medical History Cardio/Vascular: Yes: HTN, Hyperlipdemia Gastrointestinal: Yes: Diverticulitis, GERD Musculoskeletal: Yes: Chronic low back pain, Osteoarthritis (left knee) Endocrine: Yes: Diabetes Mellitus - Past Surgical History Past Surgical History: Yes: Arthrosocopy (left knee), Colonoscopy (x3-[address] 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 Home Medications - Allergies Allergies/Adverse Reactions: Allergies Allergy/AdvReac Type Severity Reaction Status Date / Time No Known Allergies Allergy Verified 12/25/19 17:52 - Home Medications Home Medications: Ambulatory Orders Amlodipine Besylate [Norvasc -] 5 mg PO DAILY 11/16/18 Glipizide [Glipizide ER] 5 mg PO DAILY 11/16/18 Losartan Potassium [Cozaar] 100 mg PO DAILY 11/16/18 Tamsulosin HCl [Flomax] 0.4 mg PO DAILY 11/16/18 Family Medical History Family History: Denies Review of Systems - Review of Systems Constitutional: reports: Malaise Eyes: reports: No Symptoms HENT: reports: No Symptoms Neck: reports: No Symptoms Cardiovascular: reports: No Symptoms Respiratory: reports: No Symptoms Gastrointestinal: reports: No Symptoms Genitourinary: reports: Dysuria Integumentary: reports: No Symptoms Neurological: reports: No Symptoms Endocrine: reports: No Symptoms Hematology/Lymphatic: reports: No Symptoms Psychiatric: reports: No Symptoms Physical Exam Vital Signs: Vital Signs Temperature 98.8 F 12/26/19 09:30 Pulse Rate 87 12/26/19 09:30 Respiratory Rate 17 12/26/19 09:30 Blood Pressure 137/86 12/26/19 09:30 O2 Sat by Pulse Oximetry (%) 96 12/26/19 09:30 Constitutional: Yes: Calm Eyes: Yes: Conjunctiva Clear HENT: Yes: Atraumatic Neck: Yes: Supple Cardiovascular: Yes: S1, S2 Respiratory: Yes: CTA Bilaterally Gastrointestinal: Yes: Soft Renal/: Yes: WNL Musculoskeletal: Yes: WNL Edema: No Neurological: Yes: Oriented Psychiatric: Yes: Oriented Labs: CBC, BMP 12/26/19 05:30 12/26/19 05:30 Problem List - Problems (1) TONYA (acute kidney injury) Code(s): N17.9 - ACUTE KIDNEY FAILURE, UNSPECIFIED (2) Urinary retention Code(s): R33.9 - RETENTION OF URINE, UNSPECIFIED Assessment/Plan Current Medications Generic Name Dose Route Start Last Admin Trade Name Serg PRN Reason Stop Dose Admin Amlodipine Besylate 5 mg 12/26/19 10:00 Norvasc - PO DAILY [facility] Heparin Sodium (Porcine) 5,000 unit 12/26/19 06:00 12/26/19 06:15 Heparin - SQ Not Given TID [facility] Ceftriaxone Sodium 1 gm/ 50 mls @ 100 mls/hr 12/26/19 10:00 Dextrose IVPB DAILY [facility] Protocol Insulin Aspart 1 vial 12/26/19 07:00 12/26/19 07:26 Novolog Vial Sliding Scale - SQ Not Given ACHS [facility] Protocol Tamsulosin HCl 0.4 mg 12/26/19 08:30 Flomax - PO DAILY@0830 [facility] Impression 1. TONYA 2. urinary retention 3. dm 4. htn 5. hypokalemia Plan - hold bactrim - follow ultrasound and ct scan - monitor output - tonya can from obstruction vs bactrim - check ua - check lytes and urine osm - hold losartan for now
--- NOTE | 2019-12-26 10:39 | EKG ---
Test Reason : Blood Pressure : / mmHG Vent. Rate : 080 BPM Atrial Rate : 080 BPM P-R Int : 200 ms QRS Dur : 090 ms QT Int : 368 ms P-R-T Axes : 072 101 005 degrees QTc Int : 424 ms NORMAL SINUS RHYTHM RIGHTWARD AXIS NONSPECIFIC T WAVE ABNORMALITY POOR R WAVE PROGRESSION ABNORMAL ECG Confirmed by KARISSA HOFFMAN MD ([id number]) on 12/26/2019 10:39:29 AM Referred By: Confirmed By:KARISSA HOFFMAN MD
[2019-12-26] MEDS: TAMSULOSIN HCL 0.4 MG CAP PO SCH (10:43)
[2019-12-26] MEDS: amLODIPine BESYLATE 5 MG TABLET (FP) PO SCH (10:43)
--- NOTE | 2019-12-26 11:14 | CONSULT ---
Consult Consult Specialty:: UROLOGY Reason for Consultation:: TONYA, UTI and Urinary retention - History of Present Illness Chief Complaint: 69 Y/O Male patient with history of DM, HT, HLD, GERD and BPH underwent TUVP. he had history of recurrent Urinary retention, ross was removed last week. He start dysuria and hesitency over last 3 days with mild fever. He is admitted for IV abx and further managment. He void 700 ml over 24 hrs. nocturia 3, frequency 4, good urine flow, dysuria no gross hematuria. O/E soft lax abd no palpable bladder. PVR 84 ML. Patient refuses catheter insertion. WBC 9.6. HB 12.8. BUN 16.3. S.Creat 2.5 - Past Medical History Cardio/Vascular: Yes: HTN, Hyperlipdemia Gastrointestinal: Yes: Diverticulitis, GERD Musculoskeletal: Yes: Chronic low back pain, Osteoarthritis (left knee) Endocrine: Yes: Diabetes Mellitus - Past Surgical History Past Surgical History: Yes: Arthrosocopy (left knee), Colonoscopy (x3-[address] 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 Home Medications - Allergies Allergies/Adverse Reactions: Allergies Allergy/AdvReac Type Severity Reaction Status Date / Time No Known Allergies Allergy Verified 12/25/19 17:52 - Home Medications Home Medications: Ambulatory Orders Amlodipine Besylate [Norvasc -] 5 mg PO DAILY 11/16/18 Glipizide [Glipizide ER] 5 mg PO DAILY 11/16/18 Losartan Potassium [Cozaar] 100 mg PO DAILY 11/16/18 Tamsulosin HCl [Flomax] 0.4 mg PO DAILY 11/16/18 Physical Exam Vital Signs: Vital Signs Temperature 98.8 F 12/26/19 09:30 Pulse Rate 87 12/26/19 09:30 Respiratory Rate 17 12/26/19 09:30 Blood Pressure 137/86 12/26/19 09:30 O2 Sat by Pulse Oximetry (%) 96 12/26/19 09:30 Labs: CBC, BMP 12/26/19 05:30 12/26/19 05:30 Assessment/Plan BPH TONYA UTI Chronic Urinary Retention Plan: Post void bladder scan Keep IV ceftriaxone CT-Scan of abd and pelvis without contrast. will schedule him for cystoscopy
[2019-12-26] MEDS ORDERED: POTASSIUM CHLORIDE TABS 20 MEQ TABLET.ER (FP) PO ONE (11:33)
--- NOTE | 2019-12-26 11:33 | PN ---
Progress Note, Physician Chief Complaint: Urinary retention abd pain Hypokalemia History of Present Illness: NAD in bed c/o supra pubic discomfort Awaiting bladder scan and CTAP Awaiting UA UC - Current Medication List Current Medications: Active Medications Amlodipine Besylate (Norvasc -) 5 mg PO DAILY [facility] Last Admin: 12/26/19 10:43 Dose: 5 mg Documented by: Heparin Sodium (Porcine) (Heparin -) 5,000 unit SQ TID [facility] Last Admin: 12/26/19 06:15 Dose: Not Given Documented by: Ceftriaxone Sodium 1 gm/ (Dextrose) 50 mls @ 100 mls/hr IVPB DAILY [facility]; Protocol Insulin Aspart (Novolog Vial Sliding Scale -) 1 vial SQ ACHS [facility]; Protocol Last Admin: 12/26/19 07:26 Dose: Not Given Documented by: Tamsulosin HCl (Flomax -) 0.4 mg PO DAILY@0830 [facility] Last Admin: 12/26/19 10:43 Dose: 0.4 mg Documented by: - Objective Vital Signs: Vital Signs Temperature 98.8 F 12/26/19 09:30 Pulse Rate 87 12/26/19 09:30 Respiratory Rate 17 12/26/19 09:30 Blood Pressure 137/86 12/26/19 09:30 O2 Sat by Pulse Oximetry (%) 96 12/26/19 09:30 Constitutional: Yes: Well Nourished, No Distress, Calm, Obese Cardiovascular: Yes: Regular Rate and Rhythm Respiratory: Yes: Regular, CTA Bilaterally Gastrointestinal: Yes: Normal Bowel Sounds, Soft, Abdomen, Obese, Tenderness (supra pubic) Genitourinary: Yes: Other (urinary dribbling) Musculoskeletal: Yes: WNL Edema: No Peripheral Pulses WNL: Yes Neurological: Yes: Alert, Oriented Psychiatric: Yes: Alert, Oriented Labs: CBC, BMP 12/26/19 05:30 12/26/19 05:30 Problem List - Problems (1) Urinary retention Assessment/Plan: -Urology consult -Bladder scan -CTAP -Await UA/UC Problems reviewed: Yes Code(s): R33.9 - RETENTION OF URINE, UNSPECIFIED (2) Abdominal pain Assessment/Plan: -Await UA/UC Problems reviewed: Yes Code(s): R10.9 - UNSPECIFIED ABDOMINAL PAIN Qualifiers: Abdominal location: generalized Qualified Code(s): R10.84 - Generalized abdominal pain (3) TONYA (acute kidney injury) Assessment/Plan: -Nephrology consult -Monitor trend Problems reviewed: Yes Code(s): N17.9 - ACUTE KIDNEY FAILURE, UNSPECIFIED (4) UTI (lower urinary tract infection) Assessment/Plan: -As Above Problems reviewed: Yes Code(s): N39.0 - URINARY TRACT INFECTION, SITE NOT SPECIFIED Assessment/Plan See problem list
[2019-12-26] MEDS: CEFTRIAXONE 1 GM in DEXTROSE 5%-WATER - 50 ML IVPB SCH (13:16)
[2019-12-27] MEDS: HEPARIN NA (PORCINE) 5,000 UNITS/ML 1ML VIAL SQ SCH ×3 (05:37→21:53)
[2019-12-27] MEDS: amLODIPine BESYLATE 5 MG TABLET (FP) PO SCH (09:43)
[2019-12-27] MEDS: CEFTRIAXONE 1 GM in DEXTROSE 5%-WATER - 50 ML IVPB SCH (09:43)
[2019-12-27] MEDS: TAMSULOSIN HCL 0.4 MG CAP PO SCH (09:43)
[2019-12-27 09:49] LABS: BASO % 0.7 % (0-2.0); EOS % 1.6 % (0-4.5); HEMATOCRIT 37.4 % (35.4-49); HEMOGLOBIN 12.2 GM/dL (11.7-16.9); LYMPH % 23.5 % (8-40); MCH 27.5 pg (25.7-33.7); MCHC 32.6 g/dl (32.0-35.9); MEAN CELL VOLUME 84.3 fl (80-96); MEAN PLT VOLUME 7.5 fl (7.5-11.1); MONO % 14.7 % (3.8-10.2); NEUT % 59.5 % (42.8-82.8); PLATELET COUNT 265 K/MM3 (134-434); RBC 4.44 M/mm3 (4.00-5.60); RDW 13.4 % (11.9-15.9); WHITE BLOOD COUNT 6.4 K/mm3 (4.0-10.0)
[2019-12-27 10:22] LABS: ALBUMIN 3.1 g/dl (3.4-5.0); BILIRUBIN,TOTAL 0.4 mg/dL (0.2-1); BLOOD UREA NITROGEN 24.6 mg/dL (7-18); CALCIUM 9.1 mg/dL (8.5-10.1); POTASSIUM 3.9 mmol/L (3.5-5.1); TOT PROT 6.3 g/dl (6.4-8.2)
--- NOTE | 2019-12-27 12:25 | PN ---
Progress Note, Physician - Current Medication List Current Medications: Active Medications Amlodipine Besylate (Norvasc -) 5 mg PO DAILY [facility] Last Admin: 12/27/19 09:43 Dose: 5 mg Documented by: Heparin Sodium (Porcine) (Heparin -) 5,000 unit SQ TID [facility] Last Admin: 12/27/19 05:37 Dose: Not Given Documented by: Ceftriaxone Sodium 1 gm/ (Dextrose) 50 mls @ 100 mls/hr IVPB DAILY [facility]; Protocol Last Admin: 12/27/19 09:43 Dose: 100 mls/hr Documented by: Tamsulosin HCl (Flomax -) 0.4 mg PO DAILY@0830 [facility] Last Admin: 12/27/19 09:43 Dose: 0.4 mg Documented by: - Objective Vital Signs: Vital Signs Temperature 98.3 F 12/27/19 06:00 Pulse Rate 76 12/27/19 06:00 Respiratory Rate 18 12/27/19 06:00 Blood Pressure 125/57 L 12/27/19 06:00 O2 Sat by Pulse Oximetry (%) 98 12/26/19 21:00 Cardiovascular: Yes: Regular Rate and Rhythm Respiratory: Yes: Regular, CTA Bilaterally Gastrointestinal: Yes: Normal Bowel Sounds, Soft Labs: CBC, BMP 12/27/19 08:05 12/27/19 08:05 Assessment/Plan - Problems (1) Urinary retention Assessment/Plan: -Urology consult -Bladder scan -CTAP -Await UA/UC Problems reviewed: Yes Code(s): R33.9 - RETENTION OF URINE, UNSPECIFIED (2) Abdominal pain Assessment/Plan: -Await UA/UC Problems reviewed: Yes Code(s): R10.9 - UNSPECIFIED ABDOMINAL PAIN Qualifiers: Abdominal location: generalized Qualified Code(s): R10.84 - Generalized abdominal pain (3) TONYA (acute kidney injury) Assessment/Plan: -Nephrology consult -Monitor trend Problems reviewed: Yes Code(s): N17.9 - ACUTE KIDNEY FAILURE, UNSPECIFIED (4) UTI (lower urinary tract infection) Assessment/Plan: -As Above Problems reviewed: Yes Code(s): N39.0 - URINARY TRACT INFECTION, SITE NOT SPECIFIED
--- NOTE | 2019-12-27 13:00 | PN ---
Progress Note (short form) - Note Progress Note: UROLOGY NOTE CT-Scan no kidney stone or hydro bladder air due recent catheter He is voiding better less dysuria. Plan: NPO midnight Sunday for cystoscopy and BNR in Sunday.
[2019-12-27] MEDS ORDERED: BISACODYL 5 MG TABLET.DR (FP) PO ONE (14:30)
[2019-12-28] MEDS: HEPARIN NA (PORCINE) 5,000 UNITS/ML 1ML VIAL SQ SCH ×3 (05:59→21:19)
[2019-12-28 08:16] LABS: BASO % 0.8 % (0-2.0); HEMATOCRIT 39.5 % (35.4-49); HEMOGLOBIN 12.9 GM/dL (11.7-16.9); LYMPH % 25.4 % (8-40); MCH 27.3 pg (25.7-33.7); MCHC 32.6 g/dl (32.0-35.9); MEAN CELL VOLUME 83.7 fl (80-96); MEAN PLT VOLUME 7.2 fl (7.5-11.1); MONO % 12.6 % (3.8-10.2); NEUT % 59.2 % (42.8-82.8); PLATELET COUNT 276 K/MM3 (134-434); RBC 4.72 M/mm3 (4.00-5.60); RDW 13.2 % (11.9-15.9); WHITE BLOOD COUNT 6.3 K/mm3 (4.0-10.0)
[2019-12-28 08:47] LABS: ALBUMIN 3.2 g/dl (3.4-5.0); BILIRUBIN,TOTAL 0.3 mg/dL (0.2-1); BLOOD UREA NITROGEN 23.8 mg/dL (7-18); CALCIUM 9.3 mg/dL (8.5-10.1); CREATININE 1.6 mg/dL (0.55-1.3); TOT PROT 6.4 g/dl (6.4-8.2)
[2019-12-28] MEDS: TAMSULOSIN HCL 0.4 MG CAP PO SCH (09:25)
[2019-12-28] MEDS: amLODIPine BESYLATE 5 MG TABLET (FP) PO SCH (09:25)
[2019-12-28] MEDS: CEFTRIAXONE 1 GM in DEXTROSE 5%-WATER - 50 ML IVPB SCH (09:26)
--- NOTE | 2019-12-28 12:37 | PN ---
Progress Note (short form) - Note Progress Note: RENAL Pt awake and alert comfortable c/o retrograde ejaculation, his suprapubic pain from before is better Last Vital Signs Temp Pulse Resp BP Pulse Ox 97.9 F 87 20 141/81 98 12/28/19 09:14 12/28/19 09:14 12/28/19 09:14 12/28/19 09:14 12/28/19 09:00 lungs clear cvs s1s2 rr abd soft ext no edema neuro a+ox3 CBC, BMP 12/28/19 07:35 12/28/19 07:35 Current Medications Generic Name Dose Route Start Last Admin Trade Name Freq PRN Reason Stop Dose Admin Amlodipine Besylate 5 mg 12/26/19 10:00 12/28/19 09:25 Norvasc - PO 5 mg DAILY [facility] Administration Heparin Sodium (Porcine) 5,000 unit 12/26/19 06:00 12/28/19 05:59 Heparin - SQ 5,000 unit TID [facility] Administration Ceftriaxone Sodium 1 gm/ 50 mls @ 100 mls/hr 12/26/19 10:00 12/28/19 09:26 Dextrose IVPB 100 mls/hr DAILY [facility] Administration Protocol Tamsulosin HCl 0.4 mg 12/26/19 08:30 12/28/19 09:25 Flomax - PO 0.4 mg DAILY@0830 [facility] Administration Impression 1. TONYA from obstruction vs bactrim 2. urinary retention 3. dm 4. htn 5. hypokalemia 6. renal cyst 7. retrograde ejaculation can be from tamsulosin Plan - hold bactrim - monitor output -continue ceftriaxone - check lytes and urine osm - hold losartan for now - ? changing tamsulosin if ok with urology MV
--- NOTE | 2019-12-28 13:58 | PN ---
Progress Note, Physician - Current Medication List Current Medications: Active Medications Amlodipine Besylate (Norvasc -) 5 mg PO DAILY [facility] Last Admin: 12/28/19 09:25 Dose: 5 mg Documented by: Heparin Sodium (Porcine) (Heparin -) 5,000 unit SQ TID [facility] Last Admin: 12/28/19 13:29 Dose: 5,000 unit Documented by: Ceftriaxone Sodium 1 gm/ (Dextrose) 50 mls @ 100 mls/hr IVPB DAILY [facility]; Protocol Last Admin: 12/28/19 09:26 Dose: 100 mls/hr Documented by: Tamsulosin HCl (Flomax -) 0.4 mg PO DAILY@0830 [facility] Last Admin: 12/28/19 09:25 Dose: 0.4 mg Documented by: - Objective Vital Signs: Vital Signs Temperature 97.9 F 12/28/19 09:14 Pulse Rate 87 12/28/19 09:14 Respiratory Rate 20 12/28/19 09:14 Blood Pressure 141/81 12/28/19 09:14 O2 Sat by Pulse Oximetry (%) 98 12/28/19 09:00 Cardiovascular: Yes: Regular Rate and Rhythm Respiratory: Yes: Regular, CTA Bilaterally Gastrointestinal: Yes: Normal Bowel Sounds, Soft Labs: CBC, BMP 12/28/19 07:35 12/28/19 07:35 Assessment/Plan - Problems (1) Urinary retention Assessment/Plan: -Urology consult -Bladder scan -CTAP -Await UA/UC Problems reviewed: Yes Code(s): R33.9 - RETENTION OF URINE, UNSPECIFIED (2) Abdominal pain Assessment/Plan: -Await UA/UC Problems reviewed: Yes Code(s): R10.9 - UNSPECIFIED ABDOMINAL PAIN Qualifiers: Abdominal location: generalized Qualified Code(s): R10.84 - Generalized abdominal pain (3) TONYA (acute kidney injury) Assessment/Plan: -Nephrology consult -Monitor trend -MEDS DCD PER RENAL Problems reviewed: Yes Code(s): N17.9 - ACUTE KIDNEY FAILURE, UNSPECIFIED (4) UTI (lower urinary tract infection) Assessment/Plan: -As Above Problems reviewed: Yes Code(s): N39.0 - URINARY TRACT INFECTION, SITE NOT SPECIFIED
--- NOTE | 2019-12-28 21:15 | PN ---
Progress Note (short form) - Note Progress Note: ID CONSULT DICTATED UTI R/O SEPSIS SECONDARY TO UTI ACUTE URINARY RETENTION AZOTEMIA AWAIT C/S CONTINUE EMPIRIC CEFTRIAXONE
[2019-12-28] MEDS ORDERED: ACETAMINOPHEN 325 MG TABLET (FP) PO ONE (22:46)
[2019-12-29] MEDS: HEPARIN NA (PORCINE) 5,000 UNITS/ML 1ML VIAL SQ SCH ×3 (05:56→20:59)
--- NOTE | 2019-12-29 09:31 | PN ---
Progress Note, Physician - Current Medication List Current Medications: Active Medications Amlodipine Besylate (Norvasc -) 5 mg PO DAILY [facility] Last Admin: 12/28/19 09:25 Dose: 5 mg Documented by: Heparin Sodium (Porcine) (Heparin -) 5,000 unit SQ TID [facility] Last Admin: 12/29/19 05:56 Dose: 5,000 unit Documented by: Ceftriaxone Sodium 1 gm/ (Dextrose) 50 mls @ 100 mls/hr IVPB DAILY [facility]; Protocol Last Admin: 12/28/19 09:26 Dose: 100 mls/hr Documented by: Tamsulosin HCl (Flomax -) 0.4 mg PO DAILY@0830 [facility] Last Admin: 12/28/19 09:25 Dose: 0.4 mg Documented by: - Objective Vital Signs: Vital Signs Temperature 97.4 F L 12/29/19 05:36 Pulse Rate 60 12/29/19 05:36 Respiratory Rate 20 12/29/19 05:36 Blood Pressure 138/69 12/29/19 05:36 O2 Sat by Pulse Oximetry (%) 98 12/28/19 21:00 Cardiovascular: Yes: Regular Rate and Rhythm Respiratory: Yes: Regular, CTA Bilaterally Gastrointestinal: Yes: Normal Bowel Sounds, Soft Assessment/Plan - Problems (1) Urinary retention Assessment/Plan: -Urology consult -Bladder scan -CTAP -Await UA/UC Problems reviewed: Yes Code(s): R33.9 - RETENTION OF URINE, UNSPECIFIED (2) Abdominal pain Assessment/Plan: -Await UA/UC Problems reviewed: Yes Code(s): R10.9 - UNSPECIFIED ABDOMINAL PAIN Qualifiers: Abdominal location: generalized Qualified Code(s): R10.84 - Generalized abdominal pain (3) TONYA (acute kidney injury) Assessment/Plan: -Nephrology consult -Monitor trend -MEDS DCD PER RENAL Problems reviewed: Yes Code(s): N17.9 - ACUTE KIDNEY FAILURE, UNSPECIFIED (4) UTI (lower urinary tract infection) Assessment/Plan: -As Above Problems reviewed: Yes Code(s): N39.0 - URINARY TRACT INFECTION, SITE NOT SPECIFIED
[2019-12-29] MEDS: TAMSULOSIN HCL 0.4 MG CAP PO SCH (09:36)
[2019-12-29 09:37] LABS: BASO % 0.9 % (0-2.0); EOS % 2.4 % (0-4.5); HEMATOCRIT 39.8 % (35.4-49); HEMOGLOBIN 12.8 GM/dL (11.7-16.9); LYMPH % 24.3 % (8-40); MCH 27.2 pg (25.7-33.7); MCHC 32.2 g/dl (32.0-35.9); MEAN CELL VOLUME 84.4 fl (80-96); MEAN PLT VOLUME 7.5 fl (7.5-11.1); NEUT % 60.4 % (42.8-82.8); PLATELET COUNT 310 K/MM3 (134-434); RBC 4.71 M/mm3 (4.00-5.60); RDW 13.6 % (11.9-15.9); WHITE BLOOD COUNT 7.2 K/mm3 (4.0-10.0)
[2019-12-29] MEDS: amLODIPine BESYLATE 5 MG TABLET (FP) PO SCH (09:37)
[2019-12-29] MEDS: CEFTRIAXONE 1 GM in DEXTROSE 5%-WATER - 50 ML IVPB SCH (09:37)
[2019-12-29 10:02] LABS: POTASSIUM 4.2 mmol/L (3.5-5.1)
[2019-12-29 10:12] LABS: ALBUMIN 3.3 g/dl (3.4-5.0); BILIRUBIN,TOTAL 0.4 mg/dL (0.2-1); BLOOD UREA NITROGEN 22.9 mg/dL (7-18); CALCIUM 9.1 mg/dL (8.5-10.1); CREATININE 1.4 mg/dL (0.55-1.3); TOT PROT 6.5 g/dl (6.4-8.2)
--- NOTE | 2019-12-29 10:22 | CONS ---
DATE OF CONSULTATION: DATE OF DICTATION: 12/28/2019 HISTORY OF PRESENT ILLNESS: The patient is a 69-year-old male who is evaluated for urinary tract infection, possible urosepsis. The patient has a history of acute urinary retention. He had an indwelling Starr catheter as an outpatient. It was removed approximately 1 week prior to admission. He is now admitted with complaints of acute urinary retention, suprapubic discomfort, and mild dysuria. According to the notes, he had been treated with a 4-day course of Bactrim for possible urinary tract infection. He was seen in consultation by urology and is scheduled to undergo a cystoscopy tomorrow. At the present time he is awake and alert. He has no complaints of abdominal pain. He does have some suprapubic discomfort and dysuria at times. On review of his previous cultures, previous cultures have been negative. No history of resistant urinary tract pathogens. PAST MEDICAL HISTORY: Positive for diabetes mellitus, hypertension, BPH, hyperlipidemia, gastroesophageal reflux, diverticulosis, osteoarthritis, history of recurrent urinary retention. PAST SURGICAL HISTORY: Status post left ureteral stent. ALLERGIES: No known allergies. MEDICATIONS: At the present time include ceftriaxone, Flomax, heparin, Norvasc. SOCIAL HISTORY: He resides in the community. He is a nonsmoker, nondrinker. REVIEW OF SYSTEMS: Neurologic: No loss of consciousness, seizure activity, or focal weakness. Cardiac: Negative chest pain or palpitations. Respiratory: Negative cough or sputum production. Gastrointestinal: Negative vomiting. No diarrhea. Genitourinary: As per HPI. LABORATORY DATA: White count 6.3, hematocrit 39.5, platelets 276. Urinalysis 262 white cells. CAT scan of the abdomen and pelvis negative for hydronephrosis. Urine culture is pending. COVID-19 PCR negative. PHYSICAL EXAMINATION: General: He is awake and alert. He is supine in bed in no acute distress. Vital Signs: Temperature 98.3, blood pressure 132/74, pulse 70 regular, respirations 20 per minute. HEENT: Sclera anicteric. Heart: S1 and S2. Lungs: Clear. Abdomen: Obese, soft, nontender. Positive suprapubic tenderness to palpation. Extremities: Negative for edema. IMPRESSION: 1. Urinary tract infection rule out sepsis secondary to urinary tract infection. 2. Acute urinary retention. 3. Azotemia. PLAN: Await cultures. Continue empiric ceftriaxone. The patient for cystoscopy in the morning. Thank you for the kind referral. KARISSA PATTON M.D. [id number]
[2019-12-29 10:54] LABS: ANISOCYTOSIS 0; MACROCYTOSIS 0; PLATELET ESTIMATE NORMAL
--- NOTE | 2019-12-29 16:02 | PN ---
Progress Note, Physician History of Present Illness: Pt seen and examined at bedside. He is awake and alert. He denies shortness of breath. - Current Medication List Current Medications: Active Medications Amlodipine Besylate (Norvasc -) 5 mg PO DAILY [facility] Last Admin: 12/29/19 09:37 Dose: 5 mg Documented by: Heparin Sodium (Porcine) (Heparin -) 5,000 unit SQ TID [facility] Last Admin: 12/29/19 14:44 Dose: 5,000 unit Documented by: Ceftriaxone Sodium 1 gm/ (Dextrose) 50 mls @ 100 mls/hr IVPB DAILY [facility]; Protocol Last Admin: 12/29/19 09:37 Dose: 100 mls/hr Documented by: Tamsulosin HCl (Flomax -) 0.4 mg PO DAILY@0830 [facility] Last Admin: 12/29/19 09:36 Dose: 0.4 mg Documented by: - Objective Vital Signs: Vital Signs Temperature 97.8 F 12/29/19 10:00 Pulse Rate 66 12/29/19 10:00 Respiratory Rate 20 12/29/19 10:00 Blood Pressure 135/73 12/29/19 10:00 O2 Sat by Pulse Oximetry (%) 98 12/29/19 09:00 Constitutional: Yes: Calm Eyes: Yes: Conjunctiva Clear HENT: Yes: Atraumatic Neck: Yes: Supple Cardiovascular: Yes: S1, S2 Respiratory: Yes: CTA Bilaterally Gastrointestinal: Yes: Soft Genitourinary: Yes: WNL Musculoskeletal: Yes: WNL Edema: No Neurological: Yes: Oriented Psychiatric: Yes: Oriented Labs: CBC, BMP 12/29/19 08:10 12/29/19 08:10 Problem List - Problems (1) TONYA (acute kidney injury) Code(s): N17.9 - ACUTE KIDNEY FAILURE, UNSPECIFIED (2) Urinary retention Code(s): R33.9 - RETENTION OF URINE, UNSPECIFIED Assessment/Plan Current Medications Generic Name Dose Route Start Last Admin Trade Name Collinq PRN Reason Stop Dose Admin Amlodipine Besylate 5 mg 12/26/19 10:00 12/29/19 09:37 Norvasc - PO 5 mg DAILY [facility] Administration Heparin Sodium (Porcine) 5,000 unit 12/26/19 06:00 12/29/19 14:44 Heparin - SQ 5,000 unit TID [facility] Administration Ceftriaxone Sodium 1 gm/ 50 mls @ 100 mls/hr 12/26/19 10:00 12/29/19 09:37 Dextrose IVPB 100 mls/hr DAILY [facility] Administration Protocol Tamsulosin HCl 0.4 mg 12/26/19 08:30 12/29/19 09:36 Flomax - PO 0.4 mg DAILY@0830 [facility]IA Administration Selected Entries 12/26/19 10:30 Blood Pressure 127/60 Laboratory Tests 04/22/17 04/23/17 06/06/18 07:34 06:10 10:07 Sodium Potassium Creatinine 1.2 1.1 1.2 Urine Eosinophils COVID-19 (JAZ) 12/25/19 12/26/19 12/26/19 21:30 00:15 05:30 Sodium 140 Potassium 4.0 3.3 L Creatinine 2.5 H 2.5 H Urine Eosinophils COVID-19 (JAZ) Not detected 12/26/19 21:13 Sodium Potassium Creatinine Urine Eosinophils Pending COVID-19 ([facility]) Impression 1. TONYA 2. urinary retention 3. dm 4. htn 5. hypokalemia Plan - renal function improved - cont to monitor - repeat labs in am - avoid bactrim - will need urology follow up - losartan still on hold
--- NOTE | 2019-12-29 21:48 | PN ---
Progress Note, Physician History of Present Illness: AWAKE,ALERT REPORTS MILD DYSURIA, HEMATURIA NO C/O SUPRAPUBIC OR FLANK PAIN NO FEVER/ CHILLS - Current Medication List Current Medications: Active Medications Amlodipine Besylate (Norvasc -) 5 mg PO DAILY [facility] Last Admin: 12/29/19 09:37 Dose: 5 mg Documented by: Heparin Sodium (Porcine) (Heparin -) 5,000 unit SQ TID [facility] Last Admin: 12/29/19 20:59 Dose: 5,000 unit Documented by: Ceftriaxone Sodium 1 gm/ (Dextrose) 50 mls @ 100 mls/hr IVPB DAILY [facility]; Protocol Last Admin: 12/29/19 09:37 Dose: 100 mls/hr Documented by: Tamsulosin HCl (Flomax -) 0.4 mg PO DAILY@0830 [facility] Last Admin: 12/29/19 09:36 Dose: 0.4 mg Documented by: - Objective Vital Signs: Vital Signs Temperature 98.1 F 12/29/19 21:20 Pulse Rate 72 12/29/19 21:20 Respiratory Rate 20 12/29/19 21:20 Blood Pressure 132/71 12/29/19 21:20 O2 Sat by Pulse Oximetry (%) 98 12/29/19 09:00 Constitutional: Yes: No Distress Eyes: Yes: Conjunctiva Clear Cardiovascular: Yes: Regular Rate and Rhythm, S1, S2 Respiratory: Yes: CTA Bilaterally Gastrointestinal: Yes: Normal Bowel Sounds, Soft Edema: No Labs: CBC, BMP 12/29/19 08:10 12/29/19 08:10 Assessment/Plan UTI R/O SEPSIS SECONDARY TO UTI ACUTE URINARY RETENTION AZOTEMIA CONTINUE EMPIRIC CEFTRIAXONE
[2019-12-30] MEDS: HEPARIN NA (PORCINE) 5,000 UNITS/ML 1ML VIAL SQ SCH ×3 (06:05→22:04)
[2019-12-30] MEDS: TAMSULOSIN HCL 0.4 MG CAP PO SCH (08:49)
[2019-12-30] MEDS ORDERED: cefTRIAXone SODIUM 1 GM VIAL ONE (09:39)
[2019-12-30] MEDS ORDERED: DEXTROSE 5%-WATER - 50 ML IVPB ONE (09:39)
[2019-12-30] MEDS: CEFTRIAXONE 1 GM in DEXTROSE 5%-WATER - 50 ML IVPB SCH (09:41)
[2019-12-30] MEDS: amLODIPine BESYLATE 5 MG TABLET (FP) PO SCH (09:41)
--- NOTE | 2019-12-30 12:47 | PN ---
Progress Note, Physician Chief Complaint: Urinary retention abd pain Hypokalemia History of Present Illness: NAD in bed c/o supra pubic discomfort Was awaiting COVID PCR for OR for cystoscopy COVID 19 PCR is negative - Current Medication List Current Medications: Active Medications Amlodipine Besylate (Norvasc -) 5 mg PO DAILY [facility] Last Admin: 12/30/19 09:41 Dose: 5 mg Documented by: Heparin Sodium (Porcine) (Heparin -) 5,000 unit SQ TID [facility] Last Admin: 12/30/19 06:05 Dose: 5,000 unit Documented by: Ceftriaxone Sodium 1 gm/ (Dextrose) 50 mls @ 100 mls/hr IVPB DAILY [facility]; Protocol Last Admin: 12/30/19 09:41 Dose: 100 mls/hr Documented by: Tamsulosin HCl (Flomax -) 0.4 mg PO DAILY@0830 [facility] Last Admin: 12/30/19 08:49 Dose: 0.4 mg Documented by: - Objective Vital Signs: Vital Signs Temperature 98 F 12/30/19 09:27 Pulse Rate 80 12/30/19 09:27 Respiratory Rate 22 H 12/30/19 09:27 Blood Pressure 138/77 12/30/19 09:27 O2 Sat by Pulse Oximetry (%) 97 12/30/19 11:00 Constitutional: Yes: Well Nourished, No Distress, Calm Cardiovascular: Yes: Regular Rate and Rhythm Respiratory: Yes: Regular, CTA Bilaterally Gastrointestinal: Yes: Normal Bowel Sounds, Soft, Abdomen, Obese, Tenderness (suprpubic) Genitourinary: Yes: WNL Musculoskeletal: Yes: WNL Extremities: Yes: WNL Edema: No Peripheral Pulses WNL: Yes Neurological: Yes: Alert, Oriented Psychiatric: Yes: Alert, Oriented Labs: CBC, BMP 12/29/19 08:10 12/29/19 08:10 Problem List - Problems (1) Urinary retention Assessment/Plan: -Urology consult -Bladder scan -CTAP reviewed -UC: Microbiology 12/25/19 20:45 Urine - Urine - Catheterized Urine Culture - Final NO GROWTH OBTAINED -Spoke to Urology, Pt for Cystoscopy in AM -NPO past midnight -Continue IV Rocephin Problems reviewed: Yes Code(s): R33.9 - RETENTION OF URINE, UNSPECIFIED (2) Abdominal pain Assessment/Plan: -Resolved Problems reviewed: Yes Code(s): R10.9 - UNSPECIFIED ABDOMINAL PAIN Qualifiers: Abdominal location: generalized Qualified Code(s): R10.84 - Generalized abdominal pain (3) TONYA (acute kidney injury) Assessment/Plan: -Nephrology consult -Monitor trend Problems reviewed: Yes Code(s): N17.9 - ACUTE KIDNEY FAILURE, UNSPECIFIED (4) UTI (lower urinary tract infection) Assessment/Plan: -As Above Problems reviewed: Yes Code(s): N39.0 - URINARY TRACT INFECTION, SITE NOT SPECIFIED Assessment/Plan See problem list
[2019-12-30] MEDS: POLYETHYLENE GLYCOL 3350 119 GM BTL PO SCH (16:23)
--- NOTE | 2019-12-30 20:02 | PN ---
Progress Note, Physician History of Present Illness: AWAKE,ALERT AMBULATORY NON TOXIC APPEARING LESS DYSURIA NO C/O SUPRAPUBIC OR FLANK PAIN NO FEVER/ CHILLS URINE C/S (-) - Current Medication List Current Medications: Active Medications Amlodipine Besylate (Norvasc -) 5 mg PO DAILY [facility] Last Admin: 12/30/19 09:41 Dose: 5 mg Documented by: Heparin Sodium (Porcine) (Heparin -) 5,000 unit SQ TID [facility] Last Admin: 12/30/19 14:13 Dose: 5,000 unit Documented by: Ceftriaxone Sodium 1 gm/ (Dextrose) 50 mls @ 100 mls/hr IVPB DAILY [facility]; Protocol Last Admin: 12/30/19 09:41 Dose: 100 mls/hr Documented by: Polyethylene Glycol (Miralax (For Daily Use) -) 17 gm PO DAILY [facility] Last Admin: 12/30/19 16:23 Dose: 17 grams Documented by: Tamsulosin HCl (Flomax -) 0.4 mg PO DAILY@0830 [facility] Last Admin: 12/30/19 08:49 Dose: 0.4 mg Documented by: - Objective Vital Signs: Vital Signs Temperature 97.6 F 12/30/19 18:00 Pulse Rate 66 12/30/19 18:00 Respiratory Rate 20 12/30/19 18:00 Blood Pressure 127/78 12/30/19 18:00 O2 Sat by Pulse Oximetry (%) 97 12/30/19 11:00 Constitutional: Yes: No Distress Cardiovascular: Yes: Regular Rate and Rhythm, S1, S2 Respiratory: Yes: CTA Bilaterally Gastrointestinal: Yes: Soft. No: Normal Bowel Sounds Edema: No Labs: CBC, BMP 12/29/19 08:10 12/29/19 08:10 Assessment/Plan UTI R/O SEPSIS SECONDARY TO UTI ACUTE URINARY RETENTION AZOTEMIA IMPROVED CONTINUE CEFTRIAXONE
--- NOTE | 2019-12-30 20:49 | PN ---
Progress Note, Physician History of Present Illness: Pt seen and examined at bedside. He is awake and alert. He denies dysuria or heamturia. - Current Medication List Current Medications: Active Medications Amlodipine Besylate (Norvasc -) 5 mg PO DAILY [facility] Last Admin: 12/30/19 09:41 Dose: 5 mg Documented by: Heparin Sodium (Porcine) (Heparin -) 5,000 unit SQ TID [facility] Last Admin: 12/30/19 14:13 Dose: 5,000 unit Documented by: Ceftriaxone Sodium 1 gm/ (Dextrose) 50 mls @ 100 mls/hr IVPB DAILY [facility]; Protocol Last Admin: 12/30/19 09:41 Dose: 100 mls/hr Documented by: Polyethylene Glycol (Miralax (For Daily Use) -) 17 gm PO DAILY [facility] Last Admin: 12/30/19 16:23 Dose: 17 grams Documented by: Tamsulosin HCl (Flomax -) 0.4 mg PO DAILY@0830 [facility] Last Admin: 12/30/19 08:49 Dose: 0.4 mg Documented by: - Objective Vital Signs: Vital Signs Temperature 97.6 F 12/30/19 18:00 Pulse Rate 66 12/30/19 18:00 Respiratory Rate 20 12/30/19 18:00 Blood Pressure 127/78 12/30/19 18:00 O2 Sat by Pulse Oximetry (%) 97 12/30/19 11:00 Constitutional: Yes: Calm Eyes: Yes: Conjunctiva Clear HENT: Yes: Atraumatic Neck: Yes: Supple Cardiovascular: Yes: S1, S2 Respiratory: Yes: CTA Bilaterally Gastrointestinal: Yes: Soft Genitourinary: Yes: WNL Musculoskeletal: Yes: WNL Edema: No Neurological: Yes: Oriented Psychiatric: Yes: Oriented Labs: CBC, BMP 12/29/19 08:10 12/29/19 08:10 Problem List - Problems (1) TONYA (acute kidney injury) Code(s): N17.9 - ACUTE KIDNEY FAILURE, UNSPECIFIED (2) Urinary retention Code(s): R33.9 - RETENTION OF URINE, UNSPECIFIED Assessment/Plan Current Medications Generic Name Dose Route Start Last Admin Trade Name Freq PRN Reason Stop Dose Admin Amlodipine Besylate 5 mg 12/26/19 10:00 12/30/19 09:41 Norvasc - PO 5 mg DAILY NIA Administration Heparin Sodium (Porcine) 5,000 unit 12/26/19 06:00 12/30/19 14:13 Heparin - SQ 5,000 unit TID NIA Administration Ceftriaxone Sodium 1 gm/ 50 mls @ 100 mls/hr 12/26/19 10:00 12/30/19 09:41 Dextrose IVPB 100 mls/hr DAILY NIA Administration Protocol Polyethylene Glycol 17 gm 12/30/19 15:45 12/30/19 16:23 Miralax (For Daily Use) - PO 17 grams DAILY NIA Administration Tamsulosin HCl 0.4 mg 12/26/19 08:30 12/30/19 08:49 Flomax - PO 0.4 mg DAILY@0830 NIA Administration Impression 1. TONYA 2. urinary retention 3. dm 4. htn 5. 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
[2019-12-31] MEDS: HEPARIN NA (PORCINE) 5,000 UNITS/ML 1ML VIAL SQ SCH (05:49)
[2019-12-31] MEDS: POLYETHYLENE GLYCOL 3350 119 GM BTL PO SCH (09:00)
[2019-12-31] MEDS: TAMSULOSIN HCL 0.4 MG CAP PO SCH (09:00)
[2019-12-31] MEDS ORDERED: cefTRIAXone SODIUM 1 GM VIAL ONE (09:03)
[2019-12-31] MEDS ORDERED: DEXTROSE 5%-WATER - 50 ML IVPB ONE (09:04)
[2019-12-31 09:08] LABS: BLOOD UREA NITROGEN 15.2 mg/dL (7-18); CALCIUM 8.8 mg/dL (8.5-10.1); CREATININE 1.3 mg/dL (0.55-1.3); POTASSIUM 3.9 mmol/L (3.5-5.1)
[2019-12-31] MEDS: amLODIPine BESYLATE 5 MG TABLET (FP) PO SCH (09:27)
[2019-12-31] MEDS: CEFTRIAXONE 1 GM in DEXTROSE 5%-WATER - 50 ML IVPB SCH (09:27)
--- NOTE | 2019-12-31 10:01 | PN ---
Progress Note, Physician - Current Medication List Current Medications: Active Medications Amlodipine Besylate (Norvasc -) 5 mg PO DAILY [facility] Last Admin: 12/31/19 09:27 Dose: 5 mg Documented by: Heparin Sodium (Porcine) (Heparin -) 5,000 unit SQ TID [facility] Last Admin: 12/31/19 05:49 Dose: 5,000 unit Documented by: Ceftriaxone Sodium 1 gm/ (Dextrose) 50 mls @ 100 mls/hr IVPB DAILY [facility]; Protocol Last Admin: 12/31/19 09:27 Dose: 100 mls/hr Documented by: Polyethylene Glycol (Miralax (For Daily Use) -) 17 gm PO DAILY [facility] Last Admin: 12/31/19 09:00 Dose: Not Given Documented by: Tamsulosin HCl (Flomax -) 0.4 mg PO DAILY@0830 [facility] Last Admin: 12/31/19 09:00 Dose: Not Given Documented by: - Objective Vital Signs: Vital Signs Temperature 97.8 F 12/31/19 06:00 Pulse Rate 67 12/31/19 06:00 Respiratory Rate 20 12/31/19 06:00 Blood Pressure 132/62 12/31/19 06:00 O2 Sat by Pulse Oximetry (%) 98 12/30/19 21:00 Cardiovascular: Yes: Regular Rate and Rhythm Respiratory: Yes: Regular, CTA Bilaterally Gastrointestinal: Yes: Normal Bowel Sounds, Soft Labs: CBC, BMP 12/29/19 08:10 12/31/19 08:10 Assessment/Plan - Problems (1) Urinary retention Assessment/Plan: -Urology consult -Bladder scan -CTAP reviewed -UC: Microbiology 12/25/19 20:45 Urine - Urine - Catheterized Urine Culture - Final NO GROWTH OBTAINED -Spoke to Urology, Pt for Cystoscopy -NPO -Continue IV Rocephin Problems reviewed: Yes Code(s): R33.9 - RETENTION OF URINE, UNSPECIFIED (2) Abdominal pain Assessment/Plan: -Resolved Problems reviewed: Yes Code(s): R10.9 - UNSPECIFIED ABDOMINAL PAIN Qualifiers: Abdominal location: generalized Qualified Code(s): R10.84 - Generalized abdominal pain (3) TONYA (acute kidney injury) Assessment/Plan: -Nephrology consult -Monitor trend Problems reviewed: Yes Code(s): N17.9 - ACUTE KIDNEY FAILURE, UNSPECIFIED (4) UTI (lower urinary tract infection) Assessment/Plan: -As Above Problems reviewed: Yes
--- NOTE | 2019-12-31 10:33 | PN ---
Progress Note, Physician History of Present Illness: AWAKE,ALERT AMBULATORY NON TOXIC APPEARING LESS DYSURIA NO C/O SUPRAPUBIC OR FLANK PAIN NO FEVER/ CHILLS URINE C/S (-) - Current Medication List Current Medications: Active Medications Amlodipine Besylate (Norvasc -) 5 mg PO DAILY [facility] Last Admin: 12/31/19 09:27 Dose: 5 mg Documented by: Heparin Sodium (Porcine) (Heparin -) 5,000 unit SQ TID [facility] Last Admin: 12/31/19 05:49 Dose: 5,000 unit Documented by: Ceftriaxone Sodium 1 gm/ (Dextrose) 50 mls @ 100 mls/hr IVPB DAILY [facility]; Protocol Last Admin: 12/31/19 09:27 Dose: 100 mls/hr Documented by: Polyethylene Glycol (Miralax (For Daily Use) -) 17 gm PO DAILY [facility] Last Admin: 12/31/19 09:00 Dose: Not Given Documented by: Tamsulosin HCl (Flomax -) 0.4 mg PO DAILY@0830 [facility] Last Admin: 12/31/19 09:00 Dose: Not Given Documented by: - Objective Vital Signs: Vital Signs Temperature 97.8 F 12/31/19 06:00 Pulse Rate 67 12/31/19 06:00 Respiratory Rate 20 12/31/19 06:00 Blood Pressure 132/62 12/31/19 06:00 O2 Sat by Pulse Oximetry (%) 98 12/30/19 21:00 Constitutional: Yes: No Distress Cardiovascular: Yes: Regular Rate and Rhythm, S1, S2 Respiratory: Yes: CTA Bilaterally Gastrointestinal: Yes: Normal Bowel Sounds, Soft Edema: No Labs: CBC, BMP 12/29/19 08:10 12/31/19 08:10 Assessment/Plan UTI R/O SEPSIS SECONDARY TO UTI ACUTE URINARY RETENTION AZOTEMIA IMPROVED SUBSTITUTE CEFTIN 500MG PO BID X 7D
[2019-12-31] MEDS ORDERED: CEFUROXIME AXETIL 500 MG TABLET PO SCH (10:45)
--- NOTE | 2019-12-31 10:48 | PN ---
DATE OF VISIT: DATE OF DICTATION: 12/30/2019 HISTORY OF PRESENT ILLNESS: Patient is a 69-year-old male who presented via the emergency room with urinary retention. He was found to have more than 700 mL of gross clear urine. Patient also has history of diabetes, hypertension. He did undergo a laser vaporization of the prostate last month. He did undergo a CAT scan of his abdomen, and this revealed a small amount of air seen in the urinary bladder due to a Starr catheter. There is no CT evidence of urolithiasis, no hydronephrosis. There are bilateral renal cortical cysts, the most prominent measuring 4 cm in diameter. The patient's urine culture revealed no growth. His latest laboratory data revealed a white count of 7.2 and BUN of 29.9, creatinine 1.4. IMPRESSION: Recurrent retention status post transurethral resection of the prostate, hematuria. Will recommend a cystoscopy in the morning. This was explained to the patient, and he understands the situation. Will follow with you. Merlene [id number]
--- NOTE | 2019-12-31 10:49 | CON.CARD ---
Consult Consult Specialty:: cardiology Reason for Consultation:: hx CAD; for surgery - History of Present Illness Chief Complaint: Pt AOx3; c/o lower abdominal pain. History of Present Illness: Mr. Camacho is a 69 year old male with past medical history significant for DM type 2, HTN, HLD, GERD, diverticulitis, obesity, renal cysts, and arthritis, who was sent to the emergency department by urologist for difficulty urinating since Sunday and urinary retention since this afternoon. Allergies: NKA PCP: Dr. Noel. Stress treadmill MIBI 2017: small area of mildly intense inferior wall ischemia with fair exercise functional capacity (essentially identical findings to those noted on 2014 stress MIBI). - History Source History Provided By: Patient Limitations to Obtaining History: No Limitations - Past Medical History Cardio/Vascular: Yes: HTN, Hyperlipdemia Gastrointestinal: Yes: Diverticulitis, GERD Renal/: Yes: Renal Inusuff, Other (renal cysts) Musculoskeletal: Yes: Chronic low back pain, Osteoarthritis (left knee) Endocrine: Yes: Diabetes Mellitus - Past Surgical History Past Surgical History: Yes: Arthrosocopy (left knee), Colonoscopy (x3-[address] 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 Home Medications - Allergies Allergies/Adverse Reactions: Allergies Allergy/AdvReac Type Severity Reaction Status Date / Time No Known Allergies Allergy Verified 12/25/19 17:52 - Home Medications Home Medications: Ambulatory Orders Amlodipine Besylate [Norvasc -] 5 mg PO DAILY 11/16/18 Glipizide [Glipizide ER] 5 mg PO DAILY 11/16/18 Losartan Potassium [Cozaar] 100 mg PO DAILY 11/16/18 Tamsulosin HCl [Flomax] 0.4 mg PO DAILY 11/16/18 Family Medical History Family History: Denies Review of Systems - Review of Systems Constitutional: reports: No Symptoms Eyes: reports: No Symptoms HENT: reports: No Symptoms Neck: reports: No Symptoms Cardiovascular: reports: No Symptoms Respiratory: reports: Wheezing Gastrointestinal: reports: No Symptoms Genitourinary: reports: No Symptoms Musculoskeletal: reports: Other (knee pains) Integumentary: reports: No Symptoms Neurological: reports: No Symptoms Endocrine: reports: No Symptoms Hematology/Lymphatic: reports: No Symptoms Psychiatric: reports: No Symptoms - Risk Factors Known Risk Factors: Yes: Age, Diabetes Mellitus, Gender, Hypercholesterolemia, Hypertension Vital Signs: Vital Signs Temperature 97.8 F 12/31/19 06:00 Pulse Rate 67 12/31/19 06:00 Respiratory Rate 20 12/31/19 06:00 Blood Pressure 132/62 12/31/19 06:00 O2 Sat by Pulse Oximetry (%) 98 12/30/19 21:00 Constitutional: Yes: Calm Eyes: Yes: WNL HENT: Yes: WNL Neck: Yes: WNL Respiratory: Yes: WNL Gastrointestinal: Yes: Soft, Tenderness Renal/: No: Anuria Cardiovascular: Yes: Regular Rate and Rhythm JVD: No Carotid Bruit: No PMI: Non-Displaced Heart Sounds: Yes: S1, S2 Murmur: Yes: Systolic Murmur, Grade 1 Musculoskeletal: Yes: WNL Extremities: Yes: WNL Edema: No Peripheral Pulses WNL: Yes Integumentary: Yes: WNL Neurological: Yes: WNL Psychiatric: Yes: WNL - Other Data Labs, Other Data: CBC, BMP 12/29/19 08:10 12/31/19 08:10 Ejection Fraction %: LVEF > or = 40 % Assessment/Plan Renal cysts; TONYA BPH HTN DM ?bronchial asthma (beta shin stopped earlier this year due to wheezing, bradycardia) obesity arthritis (knees) Stress MIBI 2013 and 2016: small area mildly intense inferior wall ischemia diastolic dysfunction Plan: On amlodipine for HTN (ARB/diuretic held due to TONYA); 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 F/u TSH and lipids. For urologic surgery in am.
--- NOTE | 2019-12-31 11:54 | PN ---
Progress Note, Physician History of Present Illness: Mr. Camacho is a 69 year old male with past medical history significant for DM type 2, HTN, HLD, GERD, diverticulitis, obesity, renal cysts, and arthritis, who was sent to the emergency department by urologist for difficulty urinating since Sunday and urinary retention since this afternoon. Allergies: NKA PCP: Dr. Noel. Stress treadmill MIBI 2017: small area of mildly intense inferior wall ischemia with fair exercise functional capacity (essentially identical findings to those noted on 2013 stress MIBI). - Current Medication List Current Medications: Active Medications Amlodipine Besylate (Norvasc -) 5 mg PO DAILY [facility]S [facility] Last Admin: 12/31/19 09:27 Dose: 5 mg Documented by: Cefuroxime Axetil (Ceftin -) 500 mg PO BID [facility]S [facility]CLUDE 234 BEDS AT THE [facility] Heparin Sodium (Porcine) (Heparin -) 5,000 unit SQ TID [facility] 234 BEDS AT [facility] Last Admin: 12/31/19 05:49 Dose: 5,000 unit Documented by: Polyethylene Glycol (Miralax (For Daily Use) -) 17 gm PO DAILY [facility] 234 BEDS AT [facility] Last Admin: 12/31/19 09:00 Dose: Not Given Documented by: Tamsulosin HCl (Flomax -) 0.4 mg PO DAILY@0830 [facility] 234 BEDS AT [facility] Last Admin: 12/31/19 09:00 Dose: Not Given Documented by: - Objective Vital Signs: Vital Signs Temperature 97.8 F 12/31/19 06:00 Pulse Rate 67 12/31/19 06:00 Respiratory Rate 20 12/31/19 06:00 Blood Pressure 132/62 12/31/19 06:00 O2 Sat by Pulse Oximetry (%) 98 12/30/19 21:00 Eyes: Yes: WNL, Conjunctiva Clear, EOM Intact HENT: Yes: WNL, Atraumatic, Normocephalic Neck: Yes: WNL, Supple, Trachea Midline Cardiovascular: Yes: WNL, Regular Rate and Rhythm Respiratory: Yes: WNL, Regular, CTA Bilaterally Gastrointestinal: Yes: WNL, Normal Bowel Sounds Genitourinary: Yes: WNL Musculoskeletal: Yes: WNL Extremities: Yes: WNL Edema: No Integumentary: Yes: WNL Neurological: Yes: WNL, Alert, Oriented ...Motor Strength: WNL Psychiatric: Yes: WNL Labs: CBC, BMP 12/29/19 08:10 12/31/19 08:10 Assessment/Plan Renal cysts; TONYA BPH HTN DM ?bronchial asthma (beta shin stopped earlier this year due to wheezing, bradycardia) obesity arthritis (knees) Stress MIBI 2013 and 2016: small area mildly intense inferior wall ischemia diastolic dysfunction Plan: On amlodipine for HTN (ARB/diuretic held due to TONYA); 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 F/u TSH and lipids. For urologic surgery today.
--- NOTE | 2019-12-31 11:54 | PN ---
Progress Note, Physician History of Present Illness: Mr. Camacho is a 69 year old male with past medical history significant for DM type 2, HTN, HLD, GERD, diverticulitis, obesity, renal cysts, and arthritis, who was sent to the emergency department by urologist for difficulty urinating since Sunday and urinary retention since this afternoon. Allergies: NKA PCP: Dr. Noel. Stress treadmill MIBI 2017: small area of mildly intense inferior wall ischemia with fair exercise functional capacity (essentially identical findings to those noted on 2013 stress MIBI). - Current Medication List Current Medications: Active Medications Amlodipine Besylate (Norvasc -) 5 mg PO DAILY [facility] Last Admin: 12/31/19 09:27 Dose: 5 mg Documented by: Cefuroxime Axetil (Ceftin -) 500 mg PO BID [facility] Heparin Sodium (Porcine) (Heparin -) 5,000 unit SQ TID [facility] Last Admin: 12/31/19 05:49 Dose: 5,000 unit Documented by: Polyethylene Glycol (Miralax (For Daily Use) -) 17 gm PO DAILY [facility] Last Admin: 12/31/19 09:00 Dose: Not Given Documented by: Tamsulosin HCl (Flomax -) 0.4 mg PO DAILY@0830 [facility] Last Admin: 12/31/19 09:00 Dose: Not Given Documented by: - Objective Vital Signs: Vital Signs Temperature 97.8 F 12/31/19 06:00 Pulse Rate 67 12/31/19 06:00 Respiratory Rate 20 12/31/19 06:00 Blood Pressure 132/62 12/31/19 06:00 O2 Sat by Pulse Oximetry (%) 98 12/30/19 21:00 Labs: CBC, BMP 12/29/19 08:10 12/31/19 08:10
[2019-12-31] MEDS ORDERED: MIDAZOLAM HCL 2 MG/2 ML SINGLE DOSE VIAL ONE (12:25)
[2019-12-31] MEDS ORDERED: PROPOFOL 20 ML ONE ×2 (12:25→12:45)
[2019-12-31] MEDS ORDERED: SUCCINYLCHOLINE CHLORIDE 200 MG/10 ML SYRINGE ONE (12:25)
[2019-12-31] MEDS ORDERED: GENTAMICIN SO4 80 MG/2 ML VIAL IVPB ONE (12:49)
[2019-12-31] MEDS ORDERED: ceFAZolin SODIUM 1 GM VIAL IVPB ONE (12:50)
--- NOTE | 2019-12-31 13:37 | OP ---
Operative Note - Note: Operative Date: 12/31/19 Pre-Operative Diagnosis: gross,totel, painless hematuria and clot retention Operation: cysto, evacuation of clots and tuvp and tuv-bladder neck, fulgeration of trigone Findings: bladder neck contraction rec. bleeding bph and hemorrhagic trigonitis Post-Operative Diagnosis: Same as Pre-op Surgeon: Tori Guzman Anesthesia: General Specimens Removed: urine, prostate chips Estimated Blood Loss (mls): 30 Drains & Tubes with Location: 24f 30cc 3-way ross Drains, Volume Out (mls): 0 Blood Volume Replaced (mls): 0 Fluid Volume Replaced (mls): 0 Operative Report Dictated: Yes
[2019-12-31] MEDS ORDERED: HYDROmorphone HCl 2 MG/ML VIAL ONE (14:49)
[2019-12-31] MEDS: HYDROmorphone HCl 2 MG/ML VIAL IVPUSH ONE ×11 (14:49→15:24)
[2019-12-31] MEDS ORDERED: METOPROLOL TARTRATE 5 MG/5 ML VIAL IVPUSH ONE (15:19)
--- NOTE | 2019-12-31 18:05 | PN ---
Progress Note, Physician History of Present Illness: Pt seen and examined at bedside. He is awake and alert. He denies shortness of breath. - Current Medication List Current Medications: Active Medications Acetaminophen (Tylenol -) 325 mg PO Q4H PRN PRN Reason: PAIN SCALE 7-10 Stop: 01/03/20 17:14 Amlodipine Besylate (Norvasc -) 5 mg PO DAILY NIA Cefuroxime Axetil (Ceftin -) 500 mg PO BID NIA Insulin Aspart (Novolog Vial Sliding Scale -) 1 vial SQ ACHS [facility]; Protocol Oxycodone HCl (Roxicodone -) 5 mg PO Q4H PRN PRN Reason: PAIN SCALE 7-10 - Objective Vital Signs: Vital Signs Temperature 98.5 F 12/31/19 15:50 Pulse Rate 95 H 12/31/19 15:50 Respiratory Rate 18 12/31/19 15:50 Blood Pressure 153/91 12/31/19 15:50 O2 Sat by Pulse Oximetry (%) 98 12/31/19 15:50 Constitutional: Yes: Calm Eyes: Yes: Conjunctiva Clear HENT: Yes: Atraumatic Neck: Yes: Supple Cardiovascular: Yes: S1, S2 Respiratory: Yes: CTA Bilaterally Gastrointestinal: Yes: Soft Genitourinary: Yes: WNL Musculoskeletal: Yes: WNL Edema: No Neurological: Yes: Oriented Psychiatric: Yes: Oriented Labs: CBC, BMP 12/29/19 08:10 12/31/19 08:10 Problem List - Problems (1) TONYA (acute kidney injury) Code(s): N17.9 - ACUTE KIDNEY FAILURE, UNSPECIFIED (2) Urinary retention Code(s): R33.9 - RETENTION OF URINE, UNSPECIFIED Assessment/Plan Current Medications Generic Name Dose Route Start Last Admin Trade Name Freq PRN Reason Stop Dose Admin Acetaminophen 325 mg 12/31/19 17:15 Tylenol - PO 01/03/20 17:14 Q4H PRN PAIN SCALE 7-10 Amlodipine Besylate 5 mg 01/01/20 10:00 Norvasc - PO DAILY NIA Cefuroxime Axetil 500 mg 12/31/19 22:00 Ceftin - PO BID NIA Insulin Aspart 1 vial 12/31/19 22:00 Novolog Vial Sliding Scale - SQ ACHS NIA Protocol Oxycodone HCl 5 mg 12/31/19 17:15 Roxicodone - PO Q4H PRN PAIN SCALE 7-10 Impression 1. TONYA 2. urinary retention 3. dm 4. htn 5. 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
[2019-12-31] MEDS: LOSARTAN POTASSIUM 50 MG TABLET (FP) PO SCH (18:49)
[2019-12-31] MEDS: oxyCODONE HCL 5 MG TABLET PO PRN (20:17)
[2019-12-31] MEDS: INSULIN SLIDING SCALE (NOVOLOG) 1 VIAL SQ SCH (21:10)
[2019-12-31] MEDS: CEFUROXIME AXETIL 500 MG TABLET PO SCH (21:10)
--- NOTE | 2019-12-31 23:24 | PN ---
DATE OF VISIT: PREOPERATIVE NOTE The patient is a 69-year-old male with history of urinary retention and gross hematuria. He recently underwent a TURP and after Starr removal the patient went into several episodes of retention requiring catheterization. Presently his white count is 7.2, hemoglobin and hematocrit 12.8 over 39.8. His platelets are 310. BUN and creatinine are 15.2 over 1.3. The urine revealed a large amount of blood and positive nitrates. The urine culture revealed no growth. Presently, the patient is voiding blood tinged urine with some dysuria and dribbling. Patient will go to OR for cystoscopy, clot evacuation, possible fulguration. This was explained to patient, and he agrees. Merlene [id number]
[2020-01-01] MEDS: oxyCODONE HCL 5 MG TABLET PO PRN ×2 (06:05→12:54)
[2020-01-01] MEDS: ACETAMINOPHEN 325 MG TABLET (FP) PO PRN ×2 (06:07→12:54)
[2020-01-01] MEDS: INSULIN SLIDING SCALE (NOVOLOG) 1 VIAL SQ SCH ×4 (06:14→22:04)
--- NOTE | 2020-01-01 08:56 | PN ---
Progress Note, Physician - Current Medication List Current Medications: Active Medications Acetaminophen (Tylenol -) 325 mg PO Q4H PRN PRN Reason: PAIN SCALE 7-10 Stop: 01/03/20 17:14 Last Admin: 01/01/20 06:07 Dose: 325 mg Documented by: Amlodipine Besylate (Norvasc -) 5 mg PO DAILY [facility] Cefuroxime Axetil (Ceftin -) 500 mg PO BID [facility] Last Admin: 12/31/19 21:10 Dose: 500 mg Documented by: Insulin Aspart (Novolog Vial Sliding Scale -) 1 vial SQ ACHS [facility]; Protocol Last Admin: 01/01/20 06:14 Dose: Not Given Documented by: Losartan Potassium (Cozaar -) 50 mg PO DAILY [facility] Last Admin: 12/31/19 18:49 Dose: Not Given Documented by: Oxycodone HCl (Roxicodone -) 5 mg PO Q4H PRN PRN Reason: PAIN SCALE 7-10 Last Admin: 01/01/20 06:05 Dose: 5 mg Documented by: Tamsulosin HCl (Flomax -) 0.4 mg PO DAILY@0830 [facility] - Objective Vital Signs: Vital Signs Temperature 98.9 F 01/01/20 06:00 Pulse Rate 113 H 01/01/20 06:00 Respiratory Rate 18 01/01/20 06:00 Blood Pressure 110/79 01/01/20 06:00 O2 Sat by Pulse Oximetry (%) 97 12/31/19 21:00 Cardiovascular: Yes: Regular Rate and Rhythm Respiratory: Yes: Regular, CTA Bilaterally Gastrointestinal: Yes: Normal Bowel Sounds, Soft Genitourinary: Yes: Starr Present, Other (cbi) Labs: CBC, BMP 12/29/19 08:10 12/31/19 08:10 Assessment/Plan - Problems (1) Urinary retention Assessment/Plan: -Urology consult -Bladder scan -CTAP reviewed -UC: Microbiology 12/25/19 20:45 Urine - Urine - Catheterized Urine Culture - Final NO GROWTH OBTAINED -Operative Date: 12/31/19 Pre-Operative Diagnosis: gross,totel, painless hematuria and clot retention Operation: cysto, evacuation of clots and tuvp and tuv-bladder neck, fulgeration of trigone Findings: bladder neck contraction rec. bleeding bph and hemorrhagic trigonitis Post-Operative Diagnosis: Same as Pre-op Surgeon: Tori Guzman Problems reviewed: Yes Code(s): R33.9 - RETENTION OF URINE, UNSPECIFIED (2) Abdominal pain Assessment/Plan: -Resolved Problems reviewed: Yes Code(s): R10.9 - UNSPECIFIED ABDOMINAL PAIN Qualifiers: Abdominal location: generalized Qualified Code(s): R10.84 - Generalized abdominal pain (3) TONYA (acute kidney injury) Assessment/Plan: -Nephrology consult -Monitor trend Problems reviewed: Yes Code(s): N17.9 - ACUTE KIDNEY FAILURE, UNSPECIFIED (4) UTI (lower urinary tract infection) Assessment/Plan: -As Above Problems reviewed: Yes
--- NOTE | 2020-01-01 09:50 | OP ---
DATE OF OPERATION: 12/31/2019 PREOPERATIVE DIAGNOSIS: Recurrent retention and recurrent clot retention, gross hematuria. POSTOPERATIVE DIAGNOSIS: Recurrent benign prostatic hypertrophy, bladder neck contraction, hemorrhagic trigone, and clots. OPERATIVE PROCEDURE: Cystourethroscopy, evacuation of clots, fulguration of bleeding trigone, resection of excess prostate tissue, and vaporization of prostate and bladder neck. ANESTHESIA: General. DESCRIPTION OF PROCEDURE: Under above-stated anesthesia, patient is prepped and draped in the usual sterile manner. He is placed in the dorsal lithotomy position. Cystoscopy revealed the bladder neck to be contracted and unable to accommodate a cystoscope. Therefore, a bipolar resectoscope was inserted. The loop was able to enter the bladder and resect a high-riding neck. Afterwards, the scope was accommodated into the bladder. There was a grade 3 trabeculation. There was a large amount of clots. There was active bleeding from the trigone. Using an Ellik evacuator, vigorous irrigation was performed. After all clots were removed, ureteral orifices were within normal limits with efflux of clear urine. The dome and lateral morales were clear of lesions. The trigone revealed hemorrhagic trigonitis. Therefore, a bipolar button was used and the trigone was cauterized and hemostasis was obtained. The bladder neck was also vaporized from the 6 o'clock position to the 12 o'clock position on the right side, and same thing on the left side. Some prostate tissue was growing into the prostatic urethra. Therefore, the VaporTrode was changed for a loop. Resection of the prostate was also commenced. Prostate chips were evacuated with an Ellik evacuator. Hemostasis was secured with electrocoagulation. No active bleeding was noted. Prostatic urethra and bladder neck were wide open. Therefore, the scope was removed. A 24-German 3-way, 30-mL Starr catheter was introduced. The catheter was then connected to continuous bladder irrigation. The patient tolerated the procedure well. He returned to the recovery room in good condition. Merlene [id number]
[2020-01-01] MEDS: LOSARTAN POTASSIUM 50 MG TABLET (FP) PO SCH (11:00)
[2020-01-01] MEDS: amLODIPine BESYLATE 5 MG TABLET (FP) PO SCH (11:01)
[2020-01-01] MEDS: TAMSULOSIN HCL 0.4 MG CAP PO SCH (11:01)
[2020-01-01] MEDS: CEFUROXIME AXETIL 500 MG TABLET PO SCH ×2 (11:01→22:06)
--- NOTE | 2020-01-01 12:25 | PATH ---
Surgical Pathology Report Patient Name: LILIA ROCHE Med. Rec. #: [id number] /Age/Gender: 1950 (Age: 69) / M Account: [id number] Location: [address] [place] [address]/[facility] Taken: 12/31/2019 Received: 12/31/2019 Reported: 01/01/2020 Physicians: Tori Guzman M.D. Specimen(s) Received PROSTATE CHIPS Clinical History Urinary retention, cystitis, TONYA Final Diagnosis PROSTATE CHIPS, TRANSURETHRAL RESECTION OF THE PROSTATE: BENIGN PROSTATIC TISSUE WITH GLANDULAR AND STROMAL HYPERPLASIA, ACUTE AND CHRONIC PROSTATITIS. ADJACENT UROTHELIAL MUCOSA WITH ACUTE AND CHRONIC INFLAMMATION. Electronically Signed Junie Parker M.D. Gross Description Received in formalin labeled " prostate chips," is a 1 g, 2.0 x 1.6 x 0.3 cm in aggregate of multiple luna-pink, irregular, firm to rubbery portions of tissue, consistent with prostate chips. The specimen is entirely submitted in one cassette. /12/31/2019 [facility]/12/31/2019
[2020-01-01] MEDS: POLYETHYLENE GLYCOL 3350 119 GM BTL PO PRN (14:07)
--- NOTE | 2020-01-01 15:03 | PN ---
Progress Note, Physician History of Present Illness: Pt seen and examine at bedside. He is on CBI. He complains of constipation. - Current Medication List Current Medications: Active Medications Acetaminophen (Tylenol -) 325 mg PO Q4H PRN PRN Reason: PAIN SCALE 7-10 Stop: 01/03/20 17:14 Last Admin: 01/01/20 12:54 Dose: 325 mg Documented by: Amlodipine Besylate (Norvasc -) 5 mg PO DAILY [facility] Last Admin: 01/01/20 11:01 Dose: 5 mg Documented by: Cefuroxime Axetil (Ceftin -) 500 mg PO BID [facility] Last Admin: 01/01/20 11:01 Dose: 500 mg Documented by: Insulin Aspart (Novolog Vial Sliding Scale -) 1 vial SQ [facility]; Protocol Last Admin: 01/01/20 12:24 Dose: Not Given Documented by: Losartan Potassium (Cozaar -) 50 mg PO DAILY [facility] Last Admin: 01/01/20 11:00 Dose: 50 mg Documented by: Oxycodone HCl (Roxicodone -) 5 mg PO Q4H PRN PRN Reason: PAIN SCALE 7-10 Last Admin: 01/01/20 12:54 Dose: 5 mg Documented by: Polyethylene Glycol (Miralax (For Daily Use) -) 17 gm PO BID PRN PRN Reason: CONSTIPATION Last Admin: 01/01/20 14:07 Dose: 17 gm Documented by: Tamsulosin HCl (Flomax -) 0.4 mg PO DAILY@0830 [facility] Last Admin: 01/01/20 11:01 Dose: 0.4 mg Documented by: - Objective Vital Signs: Vital Signs Temperature 98.9 F 01/01/20 06:00 Pulse Rate 113 H 01/01/20 06:00 Respiratory Rate 18 01/01/20 06:00 Blood Pressure 110/79 01/01/20 06:00 O2 Sat by Pulse Oximetry (%) 97 12/31/19 21:00 Constitutional: Yes: Calm Eyes: Yes: Conjunctiva Clear HENT: Yes: Atraumatic Neck: Yes: Supple Cardiovascular: Yes: S1, S2 Respiratory: Yes: CTA Bilaterally Gastrointestinal: Yes: Soft Genitourinary: Yes: Other (cbi) Musculoskeletal: Yes: WNL Edema: No Neurological: Yes: Oriented Psychiatric: Yes: Oriented Labs: CBC, BMP 12/29/19 08:10 12/31/19 08:10 Problem List - Problems (1) TONYA (acute kidney injury) Code(s): N17.9 - ACUTE KIDNEY FAILURE, UNSPECIFIED (2) Urinary retention Code(s): R33.9 - RETENTION OF URINE, UNSPECIFIED Assessment/Plan Current Medications Generic Name Dose Route Start Last Admin Trade Name Freq PRN Reason Stop Dose Admin Acetaminophen 325 mg 12/31/19 17:15 01/01/20 12:54 Tylenol - PO 01/03/20 17:14 325 mg Q4H PRN Administration PAIN SCALE 7-10 Amlodipine Besylate 5 mg 01/01/20 10:00 01/01/20 11:01 Norvasc - PO 5 mg DAILY NIA Administration Cefuroxime Axetil 500 mg 12/31/19 22:00 01/01/20 11:01 Ceftin - PO 500 mg BID NIA Administration Insulin Aspart 1 vial 12/31/19 22:00 01/01/20 12:24 Novolog Vial Sliding Scale - SQ Not Given ACHS [facility] Protocol Losartan Potassium 50 mg 12/31/19 18:15 01/01/20 11:00 Cozaar - PO 50 mg DAILY NIA Administration Oxycodone HCl 5 mg 12/31/19 17:15 01/01/20 12:54 Roxicodone - PO 5 mg Q4H PRN Administration PAIN SCALE 7-10 Polyethylene Glycol 17 gm 01/01/20 13:55 01/01/20 14:07 Miralax (For Daily Use) - PO 17 gm BID PRN Administration CONSTIPATION Tamsulosin HCl 0.4 mg 01/01/20 08:30 01/01/20 11:01 Flomax - PO 0.4 mg DAILY@0830 NIA Administration Impression 1. TONYA 2. urinary retention 3. dm 4. htn 5. hypokalemia Plan - check bmp - will give colace - pt on cbi - bp improved, cont to monitor - hold norvasc if hypotensive - avoid nsaids and nephrotoxins
[2020-01-02] MEDS: POLYETHYLENE GLYCOL 3350 119 GM BTL PO PRN (05:48)
[2020-01-02] MEDS: INSULIN SLIDING SCALE (NOVOLOG) 1 VIAL SQ SCH ×2 (06:14→11:42)
[2020-01-02] MEDS: CEFUROXIME AXETIL 500 MG TABLET PO SCH (09:11)
[2020-01-02] MEDS: TAMSULOSIN HCL 0.4 MG CAP PO SCH (09:11)
[2020-01-02] MEDS: amLODIPine BESYLATE 5 MG TABLET (FP) PO SCH (09:11)
[2020-01-02] MEDS: LOSARTAN POTASSIUM 50 MG TABLET (FP) PO SCH (09:11)
--- NOTE | 2020-01-02 09:28 | PN ---
Progress Note, Physician Chief Complaint: Pt A&Ox3; post-op; c/o abdominal pain. History of Present Illness: Mr. Camacho is a 69 year old male with past medical history significant for DM type 2, HTN, HLD, GERD, diverticulitis, obesity, renal cysts, and arthritis, who was sent to the emergency department by urologist for difficulty urinating since Sunday and urinary retention since this afternoon. Allergies: NKA PCP: Dr. Noel. Stress treadmill MIBI 2017: small area of mildly intense inferior wall ischemia with fair exercise functional capacity (essentially identical findings to those noted on 2013 stress MIBI). - Current Medication List Current Medications: Active Medications Acetaminophen (Tylenol -) 325 mg PO Q4H PRN PRN Reason: PAIN SCALE 7-10 Stop: 01/03/20 17:14 Last Admin: 01/01/20 12:54 Dose: 325 mg Documented by: Amlodipine Besylate (Norvasc -) 5 mg PO DAILY [facility] Last Admin: 01/02/20 09:11 Dose: 5 mg Documented by: Cefuroxime Axetil (Ceftin -) 500 mg PO BID [facility] Last Admin: 01/02/20 09:11 Dose: 500 mg Documented by: Insulin Aspart (Novolog Vial Sliding Scale -) [address] [facility]; Protocol Last Admin: 01/02/20 06:14 Dose: Not Given Documented by: Losartan Potassium (Cozaar -) 50 mg PO DAILY [facility] Last Admin: 01/02/20 09:11 Dose: 50 mg Documented by: Oxycodone HCl (Roxicodone -) 5 mg PO Q4H PRN PRN Reason: PAIN SCALE 7-10 Last Admin: 01/01/20 12:54 Dose: 5 mg Documented by: Polyethylene Glycol (Miralax (For Daily Use) -) 17 gm PO BID PRN PRN Reason: CONSTIPATION Last Admin: 01/02/20 05:48 Dose: 17 gm Documented by: Tamsulosin HCl (Flomax -) 0.4 mg PO DAILY@0830 [facility] Last Admin: 01/02/20 09:11 Dose: 0.4 mg Documented by: - Objective Vital Signs: Vital Signs Temperature 98.7 F 01/02/20 05:59 Pulse Rate 84 01/02/20 05:59 Respiratory Rate 19 01/02/20 05:59 Blood Pressure 159/79 01/02/20 05:59 O2 Sat by Pulse Oximetry (%) 98 01/01/20 21:00 Labs: CBC, BMP 12/29/19 08:10 Assessment/Plan Renal cysts; TONYA BPH HTN DM ?bronchial asthma (beta shin stopped earlier this year due to wheezing, bradycardia) obesity arthritis (knees) Stress MIBI 2013 and 2016: small area mildly intense inferior wall ischemia diastolic dysfunction Plan: On amlodipine for HTN (ARB/diuretic held due to TONYA); 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 Keep LDL cholesterol <70 mg/dL with statin, diet, exercise. Post-op care per surgical team.
[2020-01-02 10:04] VITALS: BP 139/85; PULSE 90; TEMP 98.3
[2020-01-02 10:12] LABS: POTASSIUM 4.5 mmol/L (3.5-5.1)
[2020-01-02 10:24] LABS: ALBUMIN 3.3 g/dl (3.4-5.0); BILIRUBIN,TOTAL 0.5 mg/dL (0.2-1); BLOOD UREA NITROGEN 20.2 mg/dL (7-18); CALCIUM 9.3 mg/dL (8.5-10.1); CREATININE 1.4 mg/dL (0.55-1.3); TOT PROT 6.7 g/dl (6.4-8.2)
--- NOTE | 2020-01-02 11:10 | PATH ---
Cytology Non-Gynecological Report Patient Name: LILIA ROCHE Med. Rec. #: [id number] /Age/Gender: 1950 (Age: 69) / M Account: [id number] Location: [address] [place] [address]/[facility] Taken: 12/31/2019 Received: 12/31/2019 Reported: 01/02/2020 Physicians: Isha Noel M.D. Specimen(s) Received URINE VOIDED Clinical History Urine for cytology Final Diagnosis URINE FOR CYTOLOGY: SATISFACTORY FOR EVALUATION. NEGATIVE FOR HIGH GRADE UROTHELIAL CARCINOMA. MANY RED BLOOD CELLS, RARE NEUTROPHILS , AND SCATTERED UROTHELIAL CELLS PRESENT. Electronically Signed Junie Parker M.D. Gross Description Approximately 60cc of yellow fluid received fresh. One cytospin prepared.
--- NOTE | 2020-01-02 12:30 | DS ---
Physical Examination Vital Signs: Vital Signs Temperature 98.3 F 01/02/20 09:00 Pulse Rate 90 01/02/20 09:00 Respiratory Rate 18 01/02/20 09:00 Blood Pressure 139/85 01/02/20 09:00 O2 Sat by Pulse Oximetry (%) 98 01/02/20 09:00 Respiratory: Yes: Regular, CTA Bilaterally Gastrointestinal: Yes: Normal Bowel Sounds, Soft Renal/: Yes: Ross Present Labs: CBC, BMP 12/29/19 08:10 01/02/20 09:00 Discharge Summary Problems reviewed: Yes Reason For Visit: ACUTE KIDNEY INJURY,RETENTION OF URINE,CYSTITIS Current Active Problems TONYA (acute kidney injury) (Acute) Urinary retention (Acute) Hospital Course: - Problems (1) Urinary retention Assessment/Plan: -Urology consult -Bladder scan -CTAP reviewed -UC: Microbiology 12/25/19 20:45 Urine - Urine - Catheterized Urine Culture - Final NO GROWTH OBTAINED -Operative Date: 12/31/19 Pre-Operative Diagnosis: gross,totel, painless hematuria and clot retention Operation: cysto, evacuation of clots and tuvp and tuv-bladder neck, fulgeration of trigone Findings: bladder neck contraction rec. bleeding bph and hemorrhagic trigonitis Post-Operative Diagnosis: Same as Pre-op Surgeon: Tori Guzman Problems reviewed: Yes cbi dcd to keep ross and follow up with dr guzman in am Code(s): R33.9 - RETENTION OF URINE, UNSPECIFIED (2) Abdominal pain Assessment/Plan: -Resolved Problems reviewed: Yes Code(s): R10.9 - UNSPECIFIED ABDOMINAL PAIN Qualifiers: Abdominal location: generalized Qualified Code(s): R10.84 - Generalized abdominal pain (3) TONYA (acute kidney injury) Assessment/Plan: -Nephrology consult -Monitor trend Problems reviewed: Yes Code(s): N17.9 - ACUTE KIDNEY FAILURE, UNSPECIFIED (4) UTI (lower urinary tract infection) Assessment/Plan: -As Above Problems reviewed: Yes - Instructions Referrals: Isha Noel MD [Primary Care Provider] - Kehinde Gallardo MD [Staff Physician] - 1 Week Tori Guzman MD [Staff Physician] - 01/03/20 - Home Medications Comprehensive Discharge Medication List: Ambulatory Orders Amlodipine Besylate [Norvasc -] 5 mg PO DAILY 11/16/18 Glipizide [Glipizide ER] 5 mg PO DAILY 11/16/18 Tamsulosin HCl [Flomax] 0.4 mg PO DAILY 11/16/18 Acetaminophen [Tylenol .Regular Strength -] 325 mg PO Q4H PRN tablet 01/02/20 Cefuroxime Axetil [Ceftin -] 500 mg PO BID #10 tablet 01/02/20 Losartan Potassium [Cozaar -] 50 mg PO DAILY #30 tablet 01/02/20 Polyethylene Glycol 3350 [Miralax 119 gm Btl -] 17 gm PO BID PRN bottle 01/02/20
--- NOTE | 2020-01-02 14:02 | PN ---
Progress Note, Physician History of Present Illness: Pt seen and examined at bedside. He is awake and alert. He denies shortness of breath. - Current Medication List Current Medications: Active Medications Acetaminophen (Tylenol -) 325 mg PO Q4H PRN PRN Reason: PAIN SCALE 7-10 Stop: 01/03/20 17:14 Last Admin: 01/01/20 12:54 Dose: 325 mg Documented by: Amlodipine Besylate (Norvasc -) 5 mg PO DAILY [facility] Last Admin: 01/02/20 09:11 Dose: 5 mg Documented by: Cefuroxime Axetil (Ceftin -) 500 mg PO BID [facility] Last Admin: 01/02/20 09:11 Dose: 500 mg Documented by: Insulin Aspart (Novolog Vial Sliding Scale -) 1 vial SQ [facility]; Protocol Last Admin: 01/02/20 11:42 Dose: Not Given Documented by: Losartan Potassium (Cozaar -) 50 mg PO DAILY [facility] Last Admin: 01/02/20 09:11 Dose: 50 mg Documented by: Oxycodone HCl (Roxicodone -) 5 mg PO Q4H PRN PRN Reason: PAIN SCALE 7-10 Last Admin: 01/01/20 12:54 Dose: 5 mg Documented by: Polyethylene Glycol (Miralax (For Daily Use) -) 17 gm PO BID PRN PRN Reason: CONSTIPATION Last Admin: 01/02/20 05:48 Dose: 17 gm Documented by: Tamsulosin HCl (Flomax -) 0.4 mg PO DAILY@0830 [facility] Last Admin: 01/02/20 09:11 Dose: 0.4 mg Documented by: - Objective Vital Signs: Vital Signs Temperature 98.3 F 01/02/20 09:00 Pulse Rate 90 01/02/20 09:00 Respiratory Rate 18 01/02/20 09:00 Blood Pressure 139/85 01/02/20 09:00 O2 Sat by Pulse Oximetry (%) 98 01/02/20 09:00 Constitutional: Yes: Calm Eyes: Yes: Conjunctiva Clear HENT: Yes: Atraumatic Neck: Yes: Supple Cardiovascular: Yes: S1, S2 Respiratory: Yes: CTA Bilaterally Gastrointestinal: Yes: Normal Bowel Sounds, Soft Genitourinary: Yes: Other (on cbi) Musculoskeletal: Yes: WNL Edema: No Neurological: Yes: Oriented Psychiatric: Yes: Oriented Labs: CBC, BMP 12/29/19 08:10 01/02/20 09:00 Problem List - Problems (1) TONYA (acute kidney injury) Code(s): N17.9 - ACUTE KIDNEY FAILURE, UNSPECIFIED (2) Urinary retention Code(s): R33.9 - RETENTION OF URINE, UNSPECIFIED Assessment/Plan Current Medications Generic Name Dose Route Start Last Admin Trade Name Freq PRN Reason Stop Dose Admin Acetaminophen 325 mg 12/31/19 17:15 01/01/20 12:54 Tylenol - PO 01/03/20 17:14 325 mg Q4H PRN Administration PAIN SCALE 7-10 Amlodipine Besylate 5 mg 01/01/20 10:00 01/02/20 09:11 Norvasc - PO 5 mg DAILY NIA Administration Cefuroxime Axetil 500 mg 12/31/19 22:00 01/02/20 09:11 Ceftin - PO 500 mg BID NIA Administration Insulin Aspart 1 vial 12/31/19 22:00 01/02/20 11:42 Novolog Vial Sliding Scale - SQ Not Given ACHS [facility] Protocol Losartan Potassium 50 mg 12/31/19 18:15 01/02/20 09:11 Cozaar - PO 50 mg DAILY NIA Administration Oxycodone HCl 5 mg 12/31/19 17:15 01/01/20 12:54 Roxicodone - PO 5 mg Q4H PRN Administration PAIN SCALE 7-10 Polyethylene Glycol 17 gm 01/01/20 13:55 01/02/20 05:48 Miralax (For Daily Use) - PO 17 gm BID PRN Administration CONSTIPATION Tamsulosin HCl 0.4 mg 01/01/20 08:30 01/02/20 09:11 Flomax - PO 0.4 mg DAILY@0830 NIA Administration Impression 1. TONYA 2. urinary retention 3. dm 4. htn 5. hypokalemia Plan - renal function stable - will need outpt follow up - CBI per urology - bp improved, cont to monitor - avoid nsaids and nephrotoxins
== END 2020-01-02 14:32 | disposition home or self-care (01) | DRG 666 ==
LOC: JER 17:45 → JERBED 22:22 → J6WEST-2 12-26 10:05 → J5S 12-29 22:53
PROVIDERS: ADMIT Internal Medicine; ATTEND Family Medicine
PROC: 0T5B8ZZ Destruction of Bladder, Via Natural or Artificial Opening Endoscopic (ICD-10-PCS; 2019-12-31)
PROC: 0V508ZZ Destruction of Prostate, Via Natural or Artificial Opening Endoscopic (ICD-10-PCS; 2019-12-31)
PROC: 0TCB8ZZ Extirpation of Matter from Bladder, Via Natural or Artificial Opening Endoscopic (ICD-10-PCS; 2019-12-31)
PROC: 0T7C7ZZ Dilation of Bladder Neck, Via Natural or Artificial Opening (ICD-10-PCS; 2019-12-31)
PROC: 0VB08ZZ Excision of Prostate, Via Natural or Artificial Opening Endoscopic (ICD-10-PCS; principal; 2019-12-31 13:00)
DX: N39.0 Urinary tract infection, site not specified (principal); N17.9 Acute kidney failure, unspecified; E46 Unspecified protein-calorie malnutrition; R33.9 Retention of urine, unspecified; N32.0 Bladder-neck obstruction; N30.31 Trigonitis with hematuria; N40.1 Benign prostatic hyperplasia with lower urinary tract symptoms; R31.9 Hematuria, unspecified; E88.09 Other disorders of plasma-protein metabolism, not elsewhere classified; Z68.34 Body mass index [BMI] 34.0-34.9, adult; E66.9 Obesity, unspecified; I10 Essential (primary) hypertension; E87.6 Hypokalemia; N28.1 Cyst of kidney, acquired; E11.9 Type 2 diabetes mellitus without complications; N53.14 Retrograde ejaculation; T44.6X5A Adverse effect of alpha-adrenoreceptor antagonists, initial encounter; J45.998 Other asthma; K21.9 Gastro-esophageal reflux disease without esophagitis
CPT/HCPCS: 36415; 74176-TC; 76775-TC; 80048; 80053; 80061; 81003; 82436; 82565; 82962; 83036; 83721; 83735; 84100; 84133; 84300; 84443; 85025; 87086; 87205; 88108; 88305-TC; 93005; 93010; 94760; 99285-25; J1644; U0003

== ENCOUNTER 2020-08-12 12:18 | Emergency (ER) | payer OTHER ==
[2020-08-12] MEDS ORDERED: METOCLOPRAMIDE HCL INJECTION 10 MG/2 ML VIAL IVPB ONE (13:01)
[2020-08-12] MEDS ORDERED: FAMOTIDINE 20 MG/50 ML IVPB 20 MG/50 ML MG IVPB ONE ×2 (13:02→13:31)
[2020-08-12] MEDS ORDERED: ACETAMINOPHEN 1000 MG/100 ML VIAL (NON FORMULARY) IVPB ONE (13:02)
[2020-08-12] MEDS ORDERED: LACTATED RINGERS SOLUTION 1000 ML INFUS.BAG IV ONE (13:02)
[2020-08-12 13:24] VITALS: BMI 37.8
[2020-08-12] MEDS ORDERED: METOCLOPRAMIDE HCL INJECTION 10 MG/2 ML VIAL ONE (13:30)
[2020-08-12] MEDS ORDERED: ACETAMINOPHEN INJECTION 100 ML IVPB ONE (13:31)
[2020-08-12 13:57] LABS: BASO % 0.2 % (0-2.0); EOS % 0.4 % (0-4.5); HEMATOCRIT 40.6 % (35.4-49); HEMOGLOBIN 13.8 GM/dL (11.7-16.9); LYMPH % 7.3 % (8-40); MCH 28.3 pg (25.7-33.7); MEAN CELL VOLUME 83.3 fl (80-96); MEAN PLT VOLUME 8.2 fl (7.5-11.1); MONO % 7.5 % (3.8-10.2); NEUT % 84.6 % (42.8-82.8); PLATELET COUNT 241 K/MM3 (134-434); RBC 4.87 M/mm3 (4.00-5.60); RDW 13.1 % (11.9-15.9); WHITE BLOOD COUNT 12.5 K/mm3 (4.0-10.0)
[2020-08-12 14:11] LABS: ACTIVATED PTT 31.5 SECONDS (25.2-36.5); INR 1.19 (0.83-1.09); PROTHROMBIN TIME (PATIENT) 14.6 SEC (9.7-13.0)
[2020-08-12 14:21] LABS: CHLORIDE 106 mmol/L (98-107); POTASSIUM 4.5 mmol/L (3.5-5.1); SODIUM 141 mmol/L (136-145)
[2020-08-12 14:23] LABS: CALCIUM 9.7 mg/dL (8.5-10.1)
[2020-08-12 14:24] LABS: ALBUMIN 3.9 g/dl (3.4-5.0); ANION GAP 7 MMOL/L (8-16); BLOOD UREA NITROGEN 24.3 mg/dL (7-18); CO2 28 mmol/L (21-32); GLUCOSE,RANDOM 139 mg/dL (74-106); LIPASE 84 U/L (73-393)
[2020-08-12 14:27] LABS: CREATININE 1.3 mg/dL (0.55-1.3); SGOT/AST 14 U/L (15-37); SGPT/ALT 21 U/L (13-61)
[2020-08-12 14:29] LABS: BILIRUBIN,TOTAL 0.8 mg/dL (0.2-1); TOT PROT 6.9 g/dl (6.4-8.2)
[2020-08-12 14:30] LABS: ALK PHOS 74 U/L (45-117)
[2020-08-12 14:42] LABS: URINE APPEARANCE CLEAR; URINE BILIRUBIN NEGATIVE (NEGATIVE); URINE COLOR YELLOW; URINE GLUCOSE (UA) NEGATIVE (NEGATIVE); URINE KETONE NEGATIVE (NEGATIVE); URINE LEUK ESTERASE NEGATIVE (NEGATIVE); URINE NITRITE NEGATIVE (NEGATIVE); URINE PROTEIN NEGATIVE (NEGATIVE); URINE UROBILINOGEN 0.2 mg/dL (0.2-1.0)
[2020-08-12] MEDS ORDERED: metroNIDAZOLE 500 MG TABLET PO ONE (16:37)
[2020-08-12] MEDS ORDERED: CIPROFLOXACIN 500 MG TABLET (RESTRICTED TO ID) PO ONE (16:38)
[2020-08-12] MEDS ORDERED: metroNIDAZOLE 250 MG TABLET ONE (16:49)
[2020-08-12 17:19] VITALS: BP 128/89; PULSE 87; TEMP 98.3
== END 2020-08-12 17:19 | disposition home or self-care (01) ==
LOC: JER 12:18
PROC: 3E0333Z Introduction of Anti-inflammatory into Peripheral Vein, Percutaneous Approach (ICD-10-PCS; principal; 2020-08-12)
PROC: 3E033GC Introduction of Other Therapeutic Substance into Peripheral Vein, Percutaneous Approach (ICD-10-PCS; 2020-08-12)
PROC: 3E033GC Introduction of Other Therapeutic Substance into Peripheral Vein, Percutaneous Approach (ICD-10-PCS; 2020-08-12)
DX: K57.92 Diverticulitis of intestine, part unspecified, without perforation or abscess without bleeding (principal)
CPT/HCPCS: 36415; 71045-TC-FY; 74177-TC; 80053; 81003; 82550; 83605; 83690; 84484; 85025; 85610; 85730; 87086; 93005; 93010; 99285-25; C9803; J0131; Q9967; U0003

== ENCOUNTER 2020-10-14 10:54 | Emergency (ER) | payer OTHER ==
[2020-10-14 11:20] VITALS: BP 151/79; PULSE 63; TEMP 98; BMI 35.2
[2020-10-14 11:43] LABS: RBC 5.42 M/mm3 (4.00-5.60); WHITE BLOOD COUNT 8.1 K/mm3 (4.0-10.8)
[2020-10-14 11:49] LABS: BASO % 3.6 % (0-2.0); EOS % 1.2 % (0-4.5); HEMATOCRIT 45.6 % (35.4-49); HEMOGLOBIN 15.3 GM/dl (11.7-16.9); LYMPH % 26.1 % (8-40); MCH 28.3 pg (25.7-33.7); MCHC 33.6 g/dl (32.0-35.9); MEAN CELL VOLUME 84.1 fl (80-96); MEAN PLT VOLUME 7.8 fl (7.5-11.1); MONO % 11.2 % (3.8-10.2); NEUT % 57.9 % (42.8-82.8); PLATELET COUNT 274 K/MM3 (134-434); RDW 12.8 % (11.9-15.9)
[2020-10-14 11:56] LABS: ALBUMIN 4.2 g/dl (3.4-5.0); BILIRUBIN,TOTAL 0.7 mg/dl (0.2-1); CALCIUM 9.8 mg/dl (8.5-10); CREATININE 1.1 mg/dl (0.55-1.3)
== END 2020-10-14 13:32 | disposition home or self-care (01) ==
LOC: FER 10:54 → MERGE 10:54 → FER 13:32
DX: R42 Dizziness and giddiness (principal)
CPT/HCPCS: 36415; 80053; 84484; 85025; 93005; 99284-25

== ENCOUNTER 2021-04-05 07:06 | Day surgery (SDC) | payer OTHER ==
[2021-04-01 10:45] VITALS: BMI 34.8
[2021-04-05] MEDS ORDERED: oxyCODONE HCL 5 MG TABLET PO PRN ×2 (07:39)
[2021-04-05] MEDS ORDERED: ONDANSETRON 4 MG/2 ML VIAL IVPUSH PRN (07:39)
[2021-04-05] MEDS ORDERED: ceFAZolin SODIUM 1 GM VIAL ONE ×3 (07:40→18:39)
[2021-04-05] MEDS ORDERED: THROMBIN (BOVINE) 5,000 UNIT VIAL TP ONE (07:40)
[2021-04-05] MEDS ORDERED: LACTATED RINGERS SOLUTION 1,000 ML IV SCH ×2 (07:45→10:00)
[2021-04-05] MEDS ORDERED: BUPIVACAINE HCL/PF 0.5% (5MG/ML) 10 ML VIAL ONE (08:12)
[2021-04-05] MEDS ORDERED: BUPIVACAINE LIPOSOME/PF (EXPAREL) 266 MG/20 ML VIAL ONE (08:12)
[2021-04-05] MEDS ORDERED: MIDAZOLAM HCL 2 MG/2 ML SINGLE DOSE VIAL ONE ×2 (08:12→10:29)
[2021-04-05] MEDS ORDERED: CELECOXIB 200 MG CAPSULE PO ONE (08:19)
[2021-04-05] MEDS ORDERED: BUPIVACAINE HCL 50 ML ONE (08:37)
[2021-04-05] MEDS ORDERED: PROPOFOL 20 ML ONE ×2 (08:38)
[2021-04-05] MEDS ORDERED: DEXAMETHASONE SOD PHOSPHATE 4 MG/1 ML VIAL ONE (08:39)
[2021-04-05] MEDS ORDERED: ONDANSETRON 4 MG/2 ML VIAL ONE (08:39)
[2021-04-05] MEDS ORDERED: TRANEXAMIC ACID 1000 MG/10 ML VIAL ONE (08:39)
[2021-04-05] MEDS ORDERED: ACETAMINOPHEN 1000 MG/100 ML VIAL IVPB ONE (09:00)
[2021-04-05] MEDS ORDERED: TRANEXAMIC ACID 1000 MG/10 ML VIAL IVPUSH ONE (09:15)
[2021-04-05] MEDS ORDERED: CEFAZOLIN 2 GM in DEXTROSE 5%-WATER - 50 ML IVPB ONE (09:15)
[2021-04-05] MEDS ORDERED: ALBUTEROL SO4 HFA INHALER IH PRN (09:53)
[2021-04-05] MEDS ORDERED: MAG HYDROX/AL HYDROX/SIMETH 30 ML UNIT-DOSE CUP PO PRN (09:54)
[2021-04-05] MEDS ORDERED: PATIENT'S OWN MEDICATION (NON-FORMULARY) (Omeprazole 20 MG Capsule.Dr) PO SCH (10:00)
[2021-04-05] MEDS ORDERED: BUPIVICAINE 0.25%/MORPH PF/KETOROLAC - 51ML DISP.SYRINGE IA ONE ×2 (10:30→10:53)
[2021-04-05] MEDS ORDERED: ACETAMINOPHEN INJECTION 100 ML IVPB ONE (12:02)
[2021-04-05] MEDS: oxyCODONE HCL 10 MG SUSTAINED ACTING TABLET PO SCH ×2 (14:10→21:41)
[2021-04-05] MEDS: SENNOSIDES/DOCUSATE COMBO (SENNA PLUS) TABLET (UD) PO SCH ×2 (14:10→21:42)
[2021-04-05] MEDS: MULTIVITAMINS (DAILY MVI) TABLET (FP) PO SCH (14:10)
[2021-04-05] MEDS ORDERED: DEXTROSE 5%-WATER - 50 ML IVPB ONE (18:39)
[2021-04-05] MEDS: CEFAZOLIN 2 GM in DEXTROSE 5%-WATER - 50 ML IVPB SCH (18:46)
[2021-04-06] MEDS ORDERED: ceFAZolin SODIUM 1 GM VIAL ONE (02:07)
[2021-04-06] MEDS ORDERED: DEXTROSE 5%-WATER - 50 ML IVPB ONE (02:08)
[2021-04-06] MEDS: CEFAZOLIN 2 GM in DEXTROSE 5%-WATER - 50 ML IVPB SCH (02:12)
[2021-04-06] MEDS ORDERED: glipiZIDE-XL 5 MG TAB.ER.24 PO SCH (07:00)
[2021-04-06] MEDS ORDERED: ASPIRIN 325 MG TABLET PO SCH (08:00)
[2021-04-06] MEDS ORDERED: LOSARTAN POTASSIUM 50 MG TABLET PO SCH (10:00)
[2021-04-06] MEDS ORDERED: PANTOPRAZOLE 20 MG TABLET PO SCH (10:00)
[2021-04-06] MEDS ORDERED: amLODIPine BESYLATE 5 MG TABLET (FP) PO SCH (10:00)
[2021-04-06 10:02] VITALS: BP 140/78; PULSE 64; TEMP 97.9
[2021-04-06] MEDS: SENNOSIDES/DOCUSATE COMBO (SENNA PLUS) TABLET (UD) PO SCH (10:37)
[2021-04-06] MEDS: MULTIVITAMINS (DAILY MVI) TABLET (FP) PO SCH (10:38)
== END 2021-04-06 13:00 | disposition home health service (06) ==
LOC: FASUSAT 07:06 → FM/S 13:19 → FASUSAT 04-06 13:00
PROVIDERS: ATTEND Orthopaedic Surgery
PROC: 8E0YXBZ Computer Assisted Procedure of Lower Extremity (ICD-10-PCS; 2021-04-05)
PROC: 8E0Y0CZ Robotic Assisted Procedure of Lower Extremity, Open Approach (ICD-10-PCS; 2021-04-05)
PROC: 0SRC0L9 Replacement of Right Knee Joint with Medial Unicondylar Synthetic Substitute, Cemented, Open Approach (ICD-10-PCS; principal; 2021-04-05 10:16)
DX: M17.11 Unilateral primary osteoarthritis, right knee (principal)
CPT/HCPCS: 20985; 27446; C1776; S2900; 73560-TC-RT-FY; 82962; 94010; 94760; 97010-GP; 97116-GP; 97162-GP; J0131

== ENCOUNTER 2022-01-16 05:39 | Day surgery (SDC) | payer OTHER ==
[2022-01-12 16:25] VITALS: BMI 37.0
[2022-01-16 09:46] VITALS: TEMP 99
[2022-01-16 13:03] VITALS: BP 106/63; PULSE 60; RESP 14
== END 2022-01-16 11:45 | disposition home or self-care (01) ==
LOC: JASU-ENDO 05:39
PROVIDERS: ATTEND Internal Medicine Gastroenterology
PROC: 0DBK8ZX Excision of Ascending Colon, Via Natural or Artificial Opening Endoscopic, Diagnostic (ICD-10-PCS; principal; 2022-01-16 09:00)
DX: Z12.11 Encounter for screening for malignant neoplasm of colon (principal); D12.2 Benign neoplasm of ascending colon; K57.30 Diverticulosis of large intestine without perforation or abscess without bleeding; Z86.010 Personal history of colon polyps; I10 Essential (primary) hypertension; E11.9 Type 2 diabetes mellitus without complications; Z79.84 Long term (current) use of oral hypoglycemic drugs
CPT/HCPCS: 82962; 88305-TC

== ENCOUNTER 2022-05-09 09:01 | Day surgery (SDC) | payer OTHER ==
[2022-05-09] MEDS ORDERED: THROMBIN (BOVINE) 5,000 UNIT VIAL TP ONE (09:13)
[2022-05-09] MEDS ORDERED: ceFAZolin SODIUM 1 GM VIAL ONE ×2 (09:13→11:06)
[2022-05-09] MEDS ORDERED: CELECOXIB 200 MG CAPSULE PO ONE ×2 (09:19→09:49)
[2022-05-09] MEDS ORDERED: TRANEXAMIC ACID 1000 MG/10 ML VIAL IVPUSH ONE (09:19)
[2022-05-09] MEDS ORDERED: CEFAZOLIN 2 GM in DEXTROSE 5%-WATER - 50 ML IVPB ONE (09:19)
[2022-05-09 09:48] VITALS: BMI 36.8
[2022-05-09] MEDS ORDERED: ALBUTEROL SO4 HFA INHALER IH PRN (09:55)
[2022-05-09] MEDS ORDERED: ONDANSETRON 4 MG/2 ML VIAL IVPUSH PRN (09:56)
[2022-05-09] MEDS ORDERED: LACTATED RINGERS SOLUTION 1,000 ML IV SCH (10:00)
[2022-05-09] MEDS ORDERED: PATIENT'S OWN MEDICATION (NON-FORMULARY) (Omeprazole 20 MG Capsule.Dr) PO SCH (10:00)
[2022-05-09] MEDS ORDERED: MIDAZOLAM HCL 2 MG/2 ML SINGLE DOSE VIAL ONE ×2 (10:07→10:50)
[2022-05-09] MEDS ORDERED: ROPIVACAINE HCL 0.5% 30ML VIAL ONE (10:09)
[2022-05-09] MEDS ORDERED: oxyCODONE HCL 5 MG TABLET PO PRN ×2 (10:16)
[2022-05-09] MEDS ORDERED: ACETAMINOPHEN 1000 MG/100 ML BAG IVPB ONE (10:16)
[2022-05-09] MEDS ORDERED: BUPIVACAINE HCL 50 ML ONE (10:20)
[2022-05-09] MEDS ORDERED: BUPIVICAINE 0.25%/MORPH PF/KETOROLAC - 51ML DISP.SYRINGE IA ONE ×2 (11:00→11:35)
[2022-05-09] MEDS ORDERED: DEXAMETHASONE SOD PHOSPHATE 4 MG/1 ML VIAL ONE (11:06)
[2022-05-09] MEDS ORDERED: SODIUM CHLORIDE 0.9% P/F 10 ML VIAL IJ ONE (11:06)
[2022-05-09] MEDS ORDERED: PHENYLEPHRINE HCL 10 MG/1 ML SINGLE DOSE VIAL ONE (11:06)
[2022-05-09] MEDS ORDERED: ePHEDrine SULFATE 50 MG/1 ML AMPULE ONE (11:06)
[2022-05-09] MEDS ORDERED: ONDANSETRON 4 MG/2 ML VIAL ONE (11:06)
[2022-05-09] MEDS ORDERED: TRANEXAMIC ACID 1000 MG/10 ML VIAL ONE (11:06)
[2022-05-09] MEDS: MULTIVITAMINS (DAILY MVI) TABLET (FP) PO SCH (16:15)
[2022-05-09] MEDS: amLODIPine BESYLATE 5 MG TABLET (FP) PO SCH (16:15)
[2022-05-09] MEDS: KETOROLAC TROMETHAMINE 30 MG/1 ML VIAL IVPUSH SCH ×2 (16:15→16:59)
[2022-05-09] MEDS: CEFAZOLIN SODIUM 2 GM in DEXTROSE 5%-WATER 100 ML IVPB SCH (18:47)
[2022-05-09] MEDS: ACETAMINOPHEN 500 MG TABLET (FP) PO SCH ×2 (18:48→23:42)
[2022-05-09] MEDS: oxyCODONE HCL 10 MG SUSTAINED ACTING TABLET PO SCH (21:17)
[2022-05-09] MEDS: SENNOSIDES/DOCUSATE COMBO (SENNA PLUS) TABLET (UD) PO SCH (21:17)
[2022-05-10] MEDS: CEFAZOLIN SODIUM 2 GM in DEXTROSE 5%-WATER 100 ML IVPB SCH (02:00)
[2022-05-10] MEDS: ACETAMINOPHEN 500 MG TABLET (FP) PO SCH ×2 (06:33→12:05)
[2022-05-10] MEDS ORDERED: glipiZIDE-XL 5 MG TAB.ER.24 PO SCH (07:00)
[2022-05-10] MEDS ORDERED: ASPIRIN 325 MG TABLET PO SCH (08:00)
[2022-05-10] MEDS: MULTIVITAMINS (DAILY MVI) TABLET (FP) PO SCH (09:45)
[2022-05-10] MEDS: amLODIPine BESYLATE 5 MG TABLET (FP) PO SCH (09:45)
[2022-05-10] MEDS: SENNOSIDES/DOCUSATE COMBO (SENNA PLUS) TABLET (UD) PO SCH (09:46)
[2022-05-10] MEDS: oxyCODONE HCL 10 MG SUSTAINED ACTING TABLET PO SCH (09:46)
[2022-05-10] MEDS ORDERED: LOSARTAN POTASSIUM 50 MG TABLET PO SCH (10:00)
[2022-05-10] MEDS ORDERED: PANTOPRAZOLE 40 MG TABLET PO SCH (10:00)
[2022-05-10 14:06] VITALS: BP 116/65; PULSE 64; RESP 18; TEMP 98.4
== END 2022-05-10 16:10 | disposition home health service (06) ==
LOC: FASUSAT 09:01 → FM/S 13:36 → FASUSAT 05-10 16:10
PROVIDERS: ATTEND Orthopaedic Surgery
PROC: 8E0Y0CZ Robotic Assisted Procedure of Lower Extremity, Open Approach (ICD-10-PCS; 2022-05-09)
PROC: 0SRD0L9 Replacement of Left Knee Joint with Medial Unicondylar Synthetic Substitute, Cemented, Open Approach (ICD-10-PCS; principal; 2022-05-09 10:49)
DX: M17.12 Unilateral primary osteoarthritis, left knee (principal)
CPT/HCPCS: 20985; 27446; C1776; S2900; 73560-TC-LT-FY; 82962; 94760; 97010-GP; 97116-GP; 97162-GP; C1889

== ENCOUNTER 2023-02-09 04:05 | Day surgery (SDC) | payer OTHER ==
[2023-02-07 12:09] VITALS: BMI 36.8
[~2023-02-09 04:05] MED LIST: ACETAMINOPHEN 500 MG TABLET (FP) PO PRN; BUPIVACAINE HCL/PF 0.75% 10 ML VIAL NR ONE; LIDOCAINE HCL 1% PRESERVATIVE FREE - 30ML VIAL IJ ONE
[2023-02-09] MEDS ORDERED: ACETAMINOPHEN 500 MG TABLET (FP) PO PRN (09:42)
[2023-02-09] MEDS ORDERED: LIDOCAINE HCL 1% PRESERVATIVE FREE - 30ML VIAL IJ ONE (11:04)
[2023-02-09] MEDS ORDERED: BUPIVACAINE HCL/PF 0.75% 10 ML VIAL NR ONE (11:04)
[2023-02-09 11:36] VITALS: BP 126/63; PULSE 57; RESP 18; TEMP 98.3
== END 2023-02-09 11:45 | disposition home or self-care (01) ==
LOC: JASU-SURG 04:05
PROVIDERS: ATTEND Pain Medicine Pain Medicine
PROC: 3E0T33Z Introduction of Anti-inflammatory into Peripheral Nerves and Plexi, Percutaneous Approach (ICD-10-PCS; 2023-02-09)
PROC: 3E0T3BZ Introduction of Anesthetic Agent into Peripheral Nerves and Plexi, Percutaneous Approach (ICD-10-PCS; principal; 2023-02-09 11:00)
DX: M47.816 Spondylosis without myelopathy or radiculopathy, lumbar region (principal)
CPT/HCPCS: 76000-TC-FY

== ENCOUNTER 2023-03-02 05:13 | Day surgery (SDC) | payer OTHER ==
[2023-02-28 10:52] VITALS: BMI 36.6
[~2023-03-02 05:13] MED LIST changes: -ACETAMINOPHEN 500 MG TABLET (FP) PO PRN; -BUPIVACAINE HCL/PF 0.75% 10 ML VIAL NR ONE; +DEXAMETHASONE SOD PHOSPHATE 10 MG/1 ML VIAL IM ONE; +IOHEXOL 180 MG/1 ML ML IJ ONE
[2023-03-02] MEDS ORDERED: ACETAMINOPHEN 500 MG TABLET (FP) PO PRN (07:25)
[2023-03-02 13:49] VITALS: RESP 20
[2023-03-02] MEDS ORDERED: MIDAZOLAM HCL 2 MG/2 ML SINGLE DOSE VIAL ONE (16:27)
[2023-03-02] MEDS ORDERED: IOHEXOL 180 MG/1 ML ML IJ ONE (16:28)
[2023-03-02] MEDS ORDERED: DEXAMETHASONE SOD PHOSPHATE 10 MG/1 ML VIAL IM ONE (16:28)
[2023-03-02] MEDS ORDERED: LIDOCAINE HCL 1% PRESERVATIVE FREE - 30ML VIAL IJ ONE (16:28)
[2023-03-02] MEDS ORDERED: ONDANSETRON 4 MG/2 ML VIAL ONE (16:29)
[2023-03-02] MEDS ORDERED: ACETAMINOPHEN 500 MG TABLET (FP) ONE (17:22)
[2023-03-02 17:57] VITALS: BP 116/70; PULSE 70; TEMP 98
== END 2023-03-02 18:02 | disposition home or self-care (01) ==
LOC: JASU-SURG 05:13
PROVIDERS: ATTEND Pain Medicine Pain Medicine
PROC: 3E0R3BZ Introduction of Anesthetic Agent into Spinal Canal, Percutaneous Approach (ICD-10-PCS; 2023-03-02)
PROC: 3E0R33Z Introduction of Anti-inflammatory into Spinal Canal, Percutaneous Approach (ICD-10-PCS; principal; 2023-03-02 15:30)
DX: M54.16 Radiculopathy, lumbar region (principal); M48.061 Spinal stenosis, lumbar region without neurogenic claudication
CPT/HCPCS: 76000-TC-FY; J1100

== ENCOUNTER 2023-03-26 04:16 | Day surgery (SDC) | payer OTHER ==
[2023-03-22 10:40] VITALS: BMI 35.0
[2023-03-26] MEDS ORDERED: PROPOFOL 20 ML ONE ×2 (10:01→10:34)
[2023-03-26] MEDS ORDERED: ceFAZolin SODIUM 1 GM VIAL IVPB ONE (10:25)
[2023-03-26] MEDS ORDERED: ONDANSETRON 4 MG/2 ML VIAL IVPUSH PRN (11:18)
[2023-03-26] MEDS ORDERED: oxyCODONE HCL 5 MG TABLET PO PRN (11:18)
[2023-03-26] MEDS ORDERED: LACTATED RINGERS SOLUTION 1,000 ML IV SCH (11:30)
[2023-03-26] MEDS ORDERED: ACETAMINOPHEN INJECTION 100 ML IVPB ONE (11:50)
[2023-03-26] MEDS ORDERED: ACETAMINOPHEN 1000 MG/100 ML BAG IVPB ONE (11:55)
[2023-03-26 13:40] VITALS: RESP 20
[2023-03-26] MEDS ORDERED: oxyCODONE HCL 5 MG TABLET ONE (14:00)
[2023-03-26 14:43] VITALS: BP 124/69; PULSE 70; TEMP 97.4
== END 2023-03-26 14:45 | disposition home or self-care (01) ==
LOC: JASU-SURG 04:16
PROVIDERS: ATTEND Urology
PROC: 0VT08ZZ Resection of Prostate, Via Natural or Artificial Opening Endoscopic (ICD-10-PCS; principal; 2023-03-26 10:00)
PROC: 0TND8ZZ Release Urethra, Via Natural or Artificial Opening Endoscopic (ICD-10-PCS; 2023-03-26 10:00)
DX: N40.1 Benign prostatic hyperplasia with lower urinary tract symptoms (principal); R33.8 Other retention of urine; N35.912 Unspecified bulbous urethral stricture, male; N32.89 Other specified disorders of bladder; N32.0 Bladder-neck obstruction
CPT/HCPCS: 76000-TC-FY; 82962; 88305-TC; 94760

== ENCOUNTER 2023-03-26 19:55 | Inpatient (IN) | payer OTHER ==
[2023-03-26 20:15] VITALS: BMI 35.0
[2023-03-26] MEDS ORDERED: SODIUM CHLORIDE 0.9% 500 ML INFUS.BAG IV ONE (20:53)
[2023-03-26] MEDS ORDERED: ACETAMINOPHEN 1000 MG/100 ML BAG IVPB ONE (20:56)
[2023-03-26] MEDS ORDERED: ONDANSETRON 4 MG/2 ML VIAL IVPUSH ONE (20:56)
[2023-03-26] MEDS ORDERED: ACETAMINOPHEN INJECTION 100 ML IVPB ONE (21:05)
[2023-03-26] MEDS ORDERED: ONDANSETRON 4 MG/2 ML VIAL ONE (21:05)
[2023-03-26 21:08] LABS: BASO % 0.3 % (0-2.0); HEMATOCRIT 42.9 % (35.4-49); HEMOGLOBIN 14.6 GM/dL (11.7-16.9); LYMPH % 4.2 % (8-40); MCH 27.5 pg (25.7-33.7); MCHC 34.1 g/dl (32.0-35.9); MEAN CELL VOLUME 80.7 fl (80-96); MEAN PLT VOLUME 7.5 fl (7.5-11.1); MONO % 7.4 % (3.8-10.2); NEUT % 88.1 % (42.8-82.8); PLATELET COUNT 244 10^3/uL (134-434); RBC 5.31 M/mm3 (4.00-5.60); RDW 13.8 % (11.9-15.9); WHITE BLOOD COUNT 12.5 K/mm3 (4.0-10.0)
[2023-03-26 21:31] LABS: POTASSIUM 4.5 mmol/L (3.5-5.1)
[2023-03-26 21:33] LABS: ALBUMIN 3.7 g/dl (3.4-5.0); BLOOD UREA NITROGEN 21.8 mg/dL (7-18); CALCIUM 9.3 mg/dL (8.5-10.1); MAGNESIUM 1.8 mg/dL (1.8-2.4)
[2023-03-26 21:37] LABS: BILIRUBIN,TOTAL 0.6 mg/dL (0.2-1); CREATININE 1.7 mg/dL (0.55-1.3); TOT PROT 7.2 g/dl (6.4-8.2)
[2023-03-26 21:54] LABS: EPI CELLS 11 /uL (0-25.1); HYALINE CASTS 2 /uL (0-3.1); URINE APPEARANCE CLEAR; URINE BACTERIA 33 /uL (0-1359); URINE BILIRUBIN NEGATIVE (NEGATIVE); URINE COLOR YELLOW; URINE GLUCOSE (UA) NEGATIVE (NEGATIVE); URINE KETONE TRACE (NEGATIVE); URINE LEUK ESTERASE 2+ (NEGATIVE); URINE NITRITE NEGATIVE (NEGATIVE); URINE PROTEIN 2+ (NEGATIVE); URINE WBC 92 /uL (0-25.8)
[2023-03-26 22:26] LABS: URINE RBC 881.4 /uL (0-23.9); YEAST NONE SEEN (NEGATIVE)
[2023-03-27] MEDS ORDERED: SODIUM CHLORIDE 1,000 ML IV SCH (01:45)
[2023-03-27] MEDS ORDERED: ONDANSETRON 4 MG/2 ML VIAL IVPUSH PRN (03:00)
[2023-03-27] MEDS ORDERED: ACETAMINOPHEN INJECTION 100 ML IVPB ONE (04:39)
[2023-03-27] MEDS: ACETAMINOPHEN 1000 MG/100 ML BAG IVPB PRN ×3 (04:44→20:45)
[2023-03-27] MEDS: INSULIN SLIDING SCALE (NOVOLOG) 1 VIAL SQ SCH ×4 (06:02→21:29)
[2023-03-27] MEDS ORDERED: morphine SULFATE 4 MG/ML VIAL IVPUSH ONE (07:34)
[2023-03-27] MEDS ORDERED: ALBUTEROL SO4 HFA INHALER IH PRN (07:36)
[2023-03-27] MEDS ORDERED: PIPERACILLIN/TAZOB 3.375 GM 3.375 GM in DEXTROSE 5%-WATER - 50 ML IVPB SCH ×2 (10:45→12:00)
[2023-03-27] MEDS: metoPROLOL SUCCINATE 25 MG TAB.SR.24H (FP) PO SCH (10:53)
[2023-03-27] MEDS: LACTULOSE 20 GM/30 ML UDC (FOR ORAL USE ONLY) PO SCH (10:53)
[2023-03-27] MEDS: ATORVASTATIN CA 20 MG TABLET (FP) PO SCH (10:53)
[2023-03-27 11:41] LABS: BASO % 0.5 % (0-2.0); EOS % 0.1 % (0-4.5); HEMATOCRIT 41.6 % (35.4-49); HEMOGLOBIN 13.6 GM/dL (11.7-16.9); LYMPH % 9.3 % (8-40); MCH 26.9 pg (25.7-33.7); MCHC 32.7 g/dl (32.0-35.9); MEAN CELL VOLUME 82.4 fl (80-96); MEAN PLT VOLUME 7.6 fl (7.5-11.1); MONO % 9.6 % (3.8-10.2); NEUT % 80.5 % (42.8-82.8); PLATELET COUNT 225 10^3/uL (134-434); RBC 5.05 M/mm3 (4.00-5.60); RDW 13.6 % (11.9-15.9); WHITE BLOOD COUNT 11.7 K/mm3 (4.0-10.0)
[2023-03-27 13:22] LABS: POTASSIUM 4.2 mmol/L (3.5-5.1)
[2023-03-27 13:24] LABS: ALBUMIN 3.5 g/dl (3.4-5.0)
[2023-03-27 13:28] LABS: CREATININE 1.6 mg/dL (0.55-1.3)
[2023-03-27 13:30] LABS: BILIRUBIN,TOTAL 0.7 mg/dL (0.2-1)
[2023-03-27 13:33] LABS: CALCIUM 9.3 mg/dL (8.5-10.1)
[2023-03-27 13:34] LABS: BLOOD UREA NITROGEN 21.3 mg/dL (7-18)
[2023-03-27] MEDS: TRIMETHOBENZAMIDE HCL 200MG/2ML INJ IM PRN (14:11)
[2023-03-27] MEDS: HYDROmorphone HCl 2 MG/ML VIAL IVPB PRN (14:11)
[2023-03-27] MEDS: PIPERACILLIN/TAZOB 3.375 GM 3.375 GM in DEXTROSE 5%-WATER - 50 ML IVPB SCH (17:19)
[2023-03-28] MEDS: PIPERACILLIN/TAZOB 3.375 GM 3.375 GM in DEXTROSE 5%-WATER - 50 ML IVPB SCH ×3 (01:13→18:44)
[2023-03-28] MEDS: HYDROmorphone HCl 2 MG/ML VIAL IVPB PRN ×3 (03:16→17:44)
[2023-03-28] MEDS ORDERED: ACETAMINOPHEN 325 MG TABLET (FP) PO PRN (03:30)
[2023-03-28] MEDS: INSULIN SLIDING SCALE (NOVOLOG) 1 VIAL SQ SCH ×4 (06:34→21:26)
[2023-03-28 10:24] LABS: INR 1.42 (0.83-1.09); PROTHROMBIN TIME (PATIENT) 16.4 SEC (9.7-13.0)
[2023-03-28 10:27] LABS: ACTIVATED PTT 32.6 SECONDS (25.2-36.5)
[2023-03-28 10:32] LABS: BASO % 0.2 % (0-2.0); EOS % 0.3 % (0-4.5); HEMATOCRIT 40.1 % (35.4-49); HEMOGLOBIN 13.1 GM/dL (11.7-16.9); LYMPH % 6.1 % (8-40); MCHC 32.7 g/dl (32.0-35.9); MEAN CELL VOLUME 82.4 fl (80-96); MEAN PLT VOLUME 7.9 fl (7.5-11.1); NEUT % 82.4 % (42.8-82.8); PLATELET COUNT 237 10^3/uL (134-434); RBC 4.87 M/mm3 (4.00-5.60); RDW 13.5 % (11.9-15.9); WHITE BLOOD COUNT 11.9 K/mm3 (4.0-10.0)
[2023-03-28 10:50] LABS: POTASSIUM 4.5 mmol/L (3.5-5.1)
[2023-03-28] MEDS: metoPROLOL SUCCINATE 25 MG TAB.SR.24H (FP) PO SCH (10:56)
[2023-03-28] MEDS: ATORVASTATIN CA 20 MG TABLET (FP) PO SCH (10:56)
[2023-03-28] MEDS: LACTULOSE 20 GM/30 ML UDC (FOR ORAL USE ONLY) PO SCH (10:59)
[2023-03-28 11:01] LABS: ALBUMIN 3.1 g/dl (3.4-5.0); BLOOD UREA NITROGEN 27.7 mg/dL (7-18); CALCIUM 9.1 mg/dL (8.5-10.1)
[2023-03-28 11:04] LABS: CREATININE 1.9 mg/dL (0.55-1.3)
[2023-03-28 11:05] LABS: TOT PROT 6.4 g/dl (6.4-8.2)
[2023-03-28 11:06] LABS: BILIRUBIN,TOTAL 0.7 mg/dL (0.2-1)
[2023-03-28] MEDS ORDERED: INSULIN SLIDING SCALE (NOVOLOG) 1 VIAL SQ ONE (11:09)
[2023-03-28] MEDS: DOCUSATE SODIUM 100 MG CAPSULE (FP) PO PRN (12:20)
[2023-03-29] MEDS: PIPERACILLIN/TAZOB 3.375 GM 3.375 GM in DEXTROSE 5%-WATER - 50 ML IVPB SCH ×3 (02:07→17:19)
[2023-03-29] MEDS: DOCUSATE SODIUM 100 MG CAPSULE (FP) PO PRN (03:27)
[2023-03-29] MEDS: INSULIN SLIDING SCALE (NOVOLOG) 1 VIAL SQ SCH ×3 (06:13→16:32)
[2023-03-29] MEDS ORDERED: BISACODYL 5 MG TABLET.DR (FP) PO ONE (10:00)
[2023-03-29] MEDS: LACTULOSE 20 GM/30 ML UDC (FOR ORAL USE ONLY) PO SCH (10:06)
[2023-03-29] MEDS: metoPROLOL SUCCINATE 25 MG TAB.SR.24H (FP) PO SCH (10:06)
[2023-03-29] MEDS: ATORVASTATIN CA 20 MG TABLET (FP) PO SCH (10:06)
[2023-03-29] MEDS ORDERED: INSULIN SLIDING SCALE (NOVOLOG) 1 VIAL SQ ONE (11:00)
[2023-03-29 11:53] LABS: BASO % 0.4 % (0-2.0); EOS % 1.1 % (0-4.5); HEMATOCRIT 40.4 % (35.4-49); HEMOGLOBIN 14.1 GM/dL (11.7-16.9); LYMPH % 12.8 % (8-40); MCH 28.1 pg (25.7-33.7); MCHC 34.9 g/dl (32.0-35.9); MEAN CELL VOLUME 80.6 fl (80-96); MONO % 11.5 % (3.8-10.2); NEUT % 74.2 % (42.8-82.8); PLATELET COUNT 241 10^3/uL (134-434); RBC 5.01 M/mm3 (4.00-5.60); RDW 13.6 % (11.9-15.9); WHITE BLOOD COUNT 9.6 K/mm3 (4.0-10.0)
[2023-03-29 12:14] LABS: POTASSIUM 4.3 mmol/L (3.5-5.1)
[2023-03-29 12:19] LABS: ALBUMIN 3.2 g/dl (3.4-5.0); CALCIUM 8.9 mg/dL (8.5-10.1)
[2023-03-29 12:20] LABS: BLOOD UREA NITROGEN 24.6 mg/dL (7-18)
[2023-03-29 12:23] LABS: CREATININE 1.6 mg/dL (0.55-1.3)
[2023-03-29 12:24] LABS: BILIRUBIN,TOTAL 0.9 mg/dL (0.2-1); TOT PROT 6.7 g/dl (6.4-8.2)
[2023-03-29] MEDS: oxyCODONE HCL 5 MG TABLET PO PRN (17:35)
[2023-03-29] MEDS: TRIMETHOBENZAMIDE HCL 200MG/2ML INJ IM PRN (19:42)
[2023-03-29] MEDS ORDERED: MELATONIN 5 MG TABLETS PO PRN (20:45)
[2023-03-29] MEDS ORDERED: SENNOSIDES 8.6MG TABLET (FP) PO ONE (20:49)
[2023-03-29] MEDS: ACETAMINOPHEN 1000 MG/100 ML BAG IVPB PRN (21:42)
[2023-03-30] MEDS: INSULIN SLIDING SCALE (NOVOLOG) 1 VIAL SQ SCH ×4 (00:55→21:43)
[2023-03-30] MEDS: PIPERACILLIN/TAZOB 3.375 GM 3.375 GM in DEXTROSE 5%-WATER - 50 ML IVPB SCH ×3 (02:14→18:33)
[2023-03-30] MEDS: ACETAMINOPHEN 1000 MG/100 ML BAG IVPB PRN ×2 (05:48→15:09)
[2023-03-30] MEDS ORDERED: TAMSULOSIN HCL 0.4 MG CAP PO ONE (08:15)
[2023-03-30] MEDS: ATORVASTATIN CA 20 MG TABLET (FP) PO SCH (10:15)
[2023-03-30] MEDS: LACTULOSE 20 GM/30 ML UDC (FOR ORAL USE ONLY) PO SCH (10:20)
[2023-03-30] MEDS: metoPROLOL SUCCINATE 25 MG TAB.SR.24H (FP) PO SCH (10:30)
[2023-03-30 14:28] LABS: POTASSIUM 4.1 mmol/L (3.5-5.1)
[2023-03-30 14:30] LABS: BLOOD UREA NITROGEN 18.7 mg/dL (7-18); CALCIUM 8.9 mg/dL (8.5-10.1)
[2023-03-30 14:33] LABS: CREATININE 1.4 mg/dL (0.55-1.3)
[2023-03-30] MEDS: TRIMETHOBENZAMIDE HCL 200MG/2ML INJ IM PRN (16:42)
[2023-03-30] MEDS: oxyCODONE HCL 5 MG TABLET PO PRN (16:42)
[2023-03-31] MEDS: PIPERACILLIN/TAZOB 3.375 GM 3.375 GM in DEXTROSE 5%-WATER - 50 ML IVPB SCH ×2 (01:56→10:08)
[2023-03-31] MEDS: INSULIN SLIDING SCALE (NOVOLOG) 1 VIAL SQ SCH ×2 (06:10→11:54)
[2023-03-31 06:36] VITALS: RESP 16
[2023-03-31] MEDS: oxyCODONE HCL 5 MG TABLET PO PRN ×2 (07:21→13:55)
[2023-03-31] MEDS: metoPROLOL SUCCINATE 25 MG TAB.SR.24H (FP) PO SCH (10:08)
[2023-03-31] MEDS: LACTULOSE 20 GM/30 ML UDC (FOR ORAL USE ONLY) PO SCH (10:08)
[2023-03-31] MEDS: ATORVASTATIN CA 20 MG TABLET (FP) PO SCH (10:08)
[2023-03-31 13:34] VITALS: BP 153/82; PULSE 67; TEMP 98.7
[2023-03-31] MEDS: DOCUSATE SODIUM 100 MG CAPSULE (FP) PO PRN (13:55)
== END 2023-03-31 14:55 | disposition home or self-care (01) | DRG 699 ==
LOC: JER 19:55 → JERBED 03-27 02:33 → J5S 03-27 05:35 → OBSVTOIN 03-29 09:55
PROVIDERS: ADMIT Internal Medicine; ATTEND Family Medicine
DX: T83.091A Other mechanical complication of indwelling urethral catheter, initial encounter (principal); N12 Tubulo-interstitial nephritis, not specified as acute or chronic; N17.9 Acute kidney failure, unspecified; N13.30 Unspecified hydronephrosis; N99.89 Other postprocedural complications and disorders of genitourinary system; K57.90 Diverticulosis of intestine, part unspecified, without perforation or abscess without bleeding; E78.5 Hyperlipidemia, unspecified; K21.9 Gastro-esophageal reflux disease without esophagitis; M54.50 Low back pain, unspecified; D72.829 Elevated white blood cell count, unspecified; I44.0 Atrioventricular block, first degree; I12.9 Hypertensive chronic kidney disease with stage 1 through stage 4 chronic kidney disease, or unspecified chronic kidney disease; E11.22 Type 2 diabetes mellitus with diabetic chronic kidney disease; N18.9 Chronic kidney disease, unspecified; Z96.651 Presence of right artificial knee joint; Y83.8 Other surgical procedures as the cause of abnormal reaction of the patient, or of later complication, without mention of misadventure at the time of the procedure
CPT/HCPCS: 36415; 74176-TC; 76700-TC; 80048; 80053; 81003; 82962; 83690; 83735; 85025; 85610; 85730; 87040; 87086; 93005; 93010; 99285-25; G0378

== ENCOUNTER 2023-10-23 04:34 | Day surgery (SDC) | payer OTHER ==
[2023-10-22 09:52] VITALS: BMI 32.5
[~2023-10-23 04:34] MED LIST changes: +ACETAMINOPHEN 500 MG TABLET (FP) PO PRN; -DEXAMETHASONE SOD PHOSPHATE 10 MG/1 ML VIAL IM ONE; -IOHEXOL 180 MG/1 ML ML IJ ONE; -LIDOCAINE HCL 1% PRESERVATIVE FREE - 30ML VIAL IJ ONE
[2023-10-23 09:08] VITALS: RESP 18
[2023-10-23] MEDS: DEXAMETHASONE SOD PHOSPHATE 10 MG/1 ML VIAL IVPUSH ONE (11:17)
[2023-10-23] MEDS: LIDOCAINE HCL 1% PRESERVATIVE FREE - 30ML VIAL IJ ONE (11:17)
[2023-10-23] MEDS: IOHEXOL 180 MG/1 ML ML IJ ONE (11:17)
[2023-10-23] MEDS ORDERED: ACETAMINOPHEN 500 MG TABLET (FP) PO PRN (12:18)
[2023-10-23 13:12] VITALS: TEMP 97.8
[2023-10-23 13:14] VITALS: BP 153/78; PULSE 47
== END 2023-10-23 12:27 | disposition home or self-care (01) ==
LOC: JASU-SURG 04:34
PROVIDERS: ATTEND Pain Medicine Pain Medicine
PROC: 3E0R3BZ Introduction of Anesthetic Agent into Spinal Canal, Percutaneous Approach (ICD-10-PCS; 2023-10-23)
PROC: 3E0R33Z Introduction of Anti-inflammatory into Spinal Canal, Percutaneous Approach (ICD-10-PCS; principal; 2023-10-23 09:45)
DX: M48.061 Spinal stenosis, lumbar region without neurogenic claudication (principal); M54.16 Radiculopathy, lumbar region
CPT/HCPCS: 76000-TC-FY; J1100

== ENCOUNTER 2023-12-06 03:54 | Day surgery (SDC) | payer OTHER ==
[2023-11-30 13:23] VITALS: BMI 32.5
[2023-12-06] MEDS ORDERED: LIDOCAINE HCL/PF 1% SDV 5ML VIAL ONE (07:17)
[2023-12-06 08:58] VITALS: RESP 18; TEMP 97.8
[2023-12-06] MEDS: ACETAMINOPHEN 500 MG TABLET (FP) PO ONE (09:45)
[2023-12-06] MEDS ORDERED: ACETAMINOPHEN 500 MG TABLET (FP) ONE (09:46)
[2023-12-06 10:03] VITALS: BP 155/74; PULSE 62
[2023-12-06] MEDS ORDERED: ACETAMINOPHEN 500 MG TABLET (FP) PO PRN (15:27)
== END 2023-12-06 10:02 | disposition home or self-care (01) ==
LOC: JASU-SURG 03:54
PROVIDERS: ATTEND Pain Medicine Pain Medicine
PROC: 01HY3MZ Insertion of Neurostimulator Lead into Peripheral Nerve, Percutaneous Approach (ICD-10-PCS; 2023-12-06)
PROC: 01HY3MZ Insertion of Neurostimulator Lead into Peripheral Nerve, Percutaneous Approach (ICD-10-PCS; principal; 2023-12-06 08:00)
DX: G89.4 Chronic pain syndrome (principal)
CPT/HCPCS: 64555; C1778